=== PATIENT | male | born 2005 | race Caucasian/White ===

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

== ENCOUNTER 2024-11-28 15:32 | Emergency (ER) | payer OTHER, SELFPAY ==
--- OUTSIDE RECORDS SUMMARY | 2024-11-28 15:44 | XMS REPORT | Continuity of Care Document ---
Author Name Unknown Address [address] [facility] [address] [place] [address] [facility] Address [address] [facility] [address] [place] [address] Care Team Providers Care Printmaker Name Role Phone PCP, PATIENT DOES NOT HAVE A Primary Care Physic emma Unavailable HOLLY SHUKLA Attending Clinician Unavailab HOLLY Malhotra Attending Clinician Unavailab Holly Malhotra DO Attending Clinician [phone] TIMOTHY LOPEZ Attending Clinician Unavailable TIMOTHY LOPEZ Attending Clinician Unavailable Timothy Lopez DO Attending Clinician +[phone] ILIA MURPHY Attending Clinician Unavailable Ilia Morillo Attending Clinician [phone] BLOSSOM LUKE Attending Clinician UnaBlossom Valle MD Attending Clinician + GEORGIE REGALADO Attending Clinician Unavailable Georgie Rodriguez Attending Clinician [phone] IMANI DUNN Attending Clinician Unavaila luc Doctor Unassigned, [place] Attending Clinician U VEGA Boudreaux Attending Clinician Unavailable Vega Richmond MD Attending Clinician [phone] Clinic, Gastroenterology Attending Clinician + [phone] SEPIDEH LE Attending Clinician Unavailable SEPIDEH LE Attending Clinician Unavailable Imani Dunn MD Attending Clinician + [phone] Only, Adc Pedi Bill Attending Clinician Unavaila ble 2, Adc Lab Attending Clinician Unavailable Faculty, Pulmonary Attending Clinician Unavailab rosa Cortes RN, Marni Schumacher Attending Clinician [phone] KIRSTY TAYLOR Attending Clinician Unavailab rosa Anderson MD, Farzana Wheeler Attending Clinician [phone] Paulino Gonzalez MD Attending Clinician [phone] REMY HENAO Attending Clinician Unavailab rosa Ware PA-C, Yvette Attending Clinician [phone] Kamini Valenzuela RN Attending Clinician Unavailable YVETTE WARE Attending Clinician Unavailable Unknown, Attending Attending Clinician Unavailab NO Villagran Attending Clinician UnaNo Mason Attending Clinician + LORI BALBUENA Attending Clinician Unavaila ble Ibtitus BARTLETTPLori Attending Clinician [phone] OMAGHOMMINNIE KellerAYEMChhaya Attending Clinician Unavailabl e Omagdiannai TASHI, Omayemchhaya Attending Clinician [phone] Hemal ZAVALA, Annita García Attending Clinician Unavailab GEORGIE Yung Attending Clinician Unavailable Beka ORDOÑEZ, Georgie Attending Clinician [phone] GORGE GARNETT Attending Clinician Unavailab Gorge Finley MD Attending Clinician + [phone] JUAN PABLO CAMERON Attending Clinician Unavailabl Juan Pablo Bailey Attending Clinician [phone] Provider, [facility] Attending Clinician Unavailable RAMO PADILLA Attending Clinician Unavailabl Ramo Gardner Attending Clinician [phone] AXEL NUGENT Attending Clinician Unavailable Axel Maloney Attending Clinician [phone] Pietro Hills MD Attending Clinician PIETRO HILLS Attending Clinician Liat vailable RHEA BAUTISTA Attending Clinician Unavailable Ebrahim SERVER SECURITY ADMINISTRATOR, Rhea Attending Clinician [phone] KELSIE TREVIÑO Attending Clinician Unavailable Kelsie Treviño MD Attending Clinician [phone] Wagner SERVER SECURITY ADMINISTRATOR, Ruchi Robledo Attending Clinician [phone] HAMMAD LYNNE Attending Clinician Unavailable Jonathan SERVER SECURITY ADMINISTRATOR, Hammad Attending Clinician [phone] Fredi Wright MD Attending Clinician [phone] Only, Samuel Db Test Attending Clinician Unavailabl JOE Schreiber Attending Clinician Unavail able Only, Adc Pob2 Test Attending Clinician UnavailJoe Almonte DO Attending Clinician [phone] Provider, [facility] Attending Clinician Un available ARCADIO REESE Attending Clinician Unavailable Arcadio Reese MD Attending Clinician [phone] Star Machado APN Attending Clinician [phone] HOLLY SHUKLA Admitting Clinician Unavailab TIMOTHY Calixto Admitting Clinician Unavailable BLOSSOM LUKE Admitting Clinician Unav ailable VEGA RICHMOND Admitting Clinician Unavailable KIRSTY TAYLOR Admitting Clinician Unavailab REMY Clements Admitting Clinician Unavailab REBEKAH Dobson Admitting Clinician Unavailable GORGE GARNETT Admitting Clinician Unavailab KELSIE Johnson Admitting Clinician Unavailable Payers Payer Name Policy Type Policy Number Effective Date Expirati on Date Source [facility] [id number] 00:00:00 [facility] [id number] 2023 00:00:00 Problems Condition Name Condition Details Condition Category Status Onset Date Resolution Date Last Treatment Date Treating Clinician Comments Source Diverticul osis Diverticul osis Disease Active 2022-10 00:00: 00 [facility] Gastroesop hageal reflux disease with esophagiti s, unspecifie d whether hemorrhage Gastroesop hageal reflux disease with esophagiti s, unspecifie d whether hemorrhage Disease Active 2022-10 00:00: 00 Last Assessmen t & Plan: Formattin g of this note might be different from the original. Desmond has signs and symptoms that are consisten t with GERD. There are signs of esophagit is. Growth progressi on is normal.Pl an: Medicatio n prescribe d for a one-month trial as indicated above.Pravin e effect profile reviewed with the parent/pa curtis.Dis cussed foods that may make heartburn worse:? Foods high in fat? Sugar? Chocolate ? Peppermin t and other mint flavoring s? Onions and garlic? Acidic foods, like oranges or tomatoes? Spicy foods? Caffeine drinks, such as coffee and tea? Carbonate d drinks, such as colasReco mmended an increase in water intake, avoid foods outlined above. Avoid eating late at night.Gav e written informati on about reflux precautio ns and dietary recommend ations.No tify should symptoms worsen in spite of above treatment . [facility] Hematochez ia Hematochez ia Disease Active 2022-10 0 00:00: 00 Last Assessmen t & Plan: Formattin g of this note might be different from the original. Plan:Refe rral to GI for evaluatio n. [facility] Pneumonia of both lungs due to infectious organism, unspecifie d part of lung Pneumonia of both lungs due to infectious organism, unspecifie d part of lung Disease Active 05-29 00:00: 00 Last Assessmen t & Plan: Formattin g of this note might be different from the original. Desmond has had bilateral , atypical pneumonia leading to hospitali zation for parentera l antibioti cs, steroids and respirato ry support. His symptoms are improving but he is still with a persisten t cough. He is now afebrile and without signs of respirato ry distress. He is well hydrated. No organism was isolated from the sputum, blood or other serologic /PCR testings. He does have baseline history of asthma and prior history of vaping. He has completed recommend ed antibioti cs.Plan:N EW medicatio n: Flovent 220 mcg 2 p BID.Albut robert HFA inhaler 2 - 4 p q 4 - 6 hours PRN cough.Dis pensed a spacer device from the office today and instructe d on proper use - Use the spacer device for all inhaled medicatio ns.Carlos tinue bromphed cough syrup - it has not helped relieve his cough.Bre youngderick re daily and report any return in fever. 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 Desmond has difficult y initiatin g sleep.Kristie n:Discuss ed the importanc e of a bed time routine and consisten cy.Discus sed the concept of "sleep hygiene". Shut off all media about one hour prior to desired bed time. Soft, ambient, backgroun d music or the noise from a fan may help with sleep initiatio n.Target 8 - 10 hours of sleep per evening.A void caffeinat ed beverages , eating or exercise/ physical activity close to bedtime. [facility] Urethral stricture, unspecifie d stricture type Urethral stricture, unspecifie d stricture type Disease Active 2015-10 00:00: 00 [facility] Constipati on, unspecifie d constipati on type Constipati on, unspecifie d constipati on type Disease Active 2015-10 00:00: 00 Overview: Formattin g of this note might be different from the original. Chronic, functiona l constipat ion.Last Assessmen t & Plan: Formattin g of this note might be different from the original. Desmond has history of chronic constipat ion and has been counseled about treatment multiple times. His father is concerned about his recurrent , chronic GI symptoms and requested a GI referral today.Kristie n:Reinfor armida treatment for constipat ion.Refer ral placed for GI to evaluatio n and treat. [facility] Allergic rhinitis Allergic rhinitis Disease Active 2015-10 0 00:00: 00 Last Assessmen t & Plan: Formattin g of this note might be different from the original. Plan:Burke mmended that he use fluticaso ne nasal spray daily - Rx written.N bhupendra saline rinses. [facility] ADHD (attention deficit hyperactiv ity disorder) ADHD (attention deficit hyperactiv ity disorder) Disease Active Overview: Formattin g of this note might be different from the original. 08/2021: Not on medicatio nPreston has had adverse effects with Adderall, Vyvanse and Concerta. Switched to MyDayis 07/2019. [facility] Asthma Asthma Disease Active Overview: Formattin g of this note might be different from the original. Has a rescue inhaler [facility] Pneumonia of both lungs due to infectious organism, unspecifie d part of lung Pneumonia of both lungs due to infectious organism, unspecifie d part of lung Disease Resolve d 8-23 00:00: 00 2023-06-26 00:00:00 2023-06-26 10:45:45 [facility] Otitis media Otitis media Disease Resolve d 6 00:00: 00 2023-06-26 00:00:00 2023-06-26 10:45:50 Overview: Formattin g of this note might be different from the original. 03/2022: Unspecifi ed ear dx in urgent care--mariela allen scan to EMR. [facility] Corns Corns Disease Resolve d 1-10 00:00: 00 2021-08-24 00:00:00 2021-08-24 08:38:26 [facility] Acne vulgaris Acne vulgaris Disease Resolve d 2018-10 0-15 00:00: 00 2021-08-24 00:00:00 2021-08-24 08:38:20 [facility] Urticaria of unknown origin Urticaria of unknown origin Disease Resolve d 2018-10 0-28 00:00: 00 2019-08-19 00:00:00 2019-08-19 22:00:41 [facility] Alopecia Alopecia Disease Resolve d 2015-10 0-03 00:00: 00 2019-08-19 00:00:00 2019-08-19 22:00:53 [facility] Allergies, Adverse Reactions, Alerts Allergy Name Allergy Type Status Severity Reaction(s) Onset Date Inactive Date Treating Clinician Comments Source CEFDINIR DRUG INGREDI Active Diarrhea 01-10 00:00: 00 [facility] Cefdinir Propensi ty to adverse reaction s Active Diarrhea 01-10 00:00: 00 [facility] Social History Social Habit Start Date Stop Date Quantity Comments Source History SDOH Alcohol Comment [facility] History SDOH Alcohol Std Drinks [facility] History SDOH Alcohol Binge [facility] History of tobacco use Passive smoker [facility] Alcoholic beverage intake 2024-11-23 00:00:00 2024-11-23 00:00:00 .14 /d [facility] Alcohol intake 2023-09-19 00:00:00 2023-09-19 00:00:00 .14 /d [facility] History of Social function 2023-06-26 00:00:00 2023-06-26 00:00:00 [facility] Education 2023-06-26 00:00:00 2023-06-26 00:00:00 13 [facility] Tobacco use and exposure 2023-05-29 00:00:00 2023-05-29 00:00:00 User of smokeless tobacco [facility] Exposure to SARS-CoV-2 (event) 2022-12-13 00:00:00 2022-12-23 09:11:00 Not sure [facility] History SDOH Alcohol Frequency 2019-07-23 00:00:00 2019-07-23 00:00:00 1 [facility] Sex assigned at 2005 00:00:00 2005 00:00:00 [facility] Smoking Status Start Date Stop Date Source Never smoked tobacco [facility] Medications Ordered Medication Name Filled Medication Name Start Date Stop Date Current Medication? Ordering Clinician Indication Dosage Frequency Signature (SIG) Comments Components Source tamsulosin (FLOMAX) capsule 0.4 mg 11-23 12:15: 00 11-23 11:32 :00 No .4mg 0.4 mg, Oral, ONCE, 1 dose, On Sat11/23/24 at 0615, Routine [facility] fentanyl PF (SUBLIMAZE (PF)) injection 50 mcg 11-23 11:45: 00 11-23 11:38 :00 No 50ug 50 mcg, Slow IV Push, ONCE, 1 dose, On Sat11/23/24 at 0545, Routine [facility] fentanyl PF (SUBLIMAZE (PF)) injection 50 mcg 11-23 10:45: 00 11-23 10:48 :00 No 50ug 50 mcg, Slow IV Push, ONCE, 1 dose, On Sat11/23/24 at 0445, Routine [facility] ketorolac (TORADOL) injection 30 mg 11-23 10:30: 00 11-23 09:42 :00 No 30mg 30 mg, Slow IV Push, ONCE, 1 dose, On Sat11/23/24 at 0430, Routine [facility] morpHINE (4 mg/mL) injection 4 mg 11-23 09:45: 00 11-23 09:42 :00 No 4mg 4 mg, Slow IV Push, ONCE, 1 dose, On Sat11/23/24 at 0345, STAT [facility] ondansetron (ZOFRAN (PF)) injection 4 mg 11-23 09:45: 00 11-23 09:44 :00 No 4mg 4 mg, Slow IV Push, ONCE, 1 dose, On Sat11/23/24 at 0345, Administer over 2-5 Minutes, 2 mL [facility] tamsulosin 0.4 mg 24 hr capsule 11-23 00:00: 00 Yes [id number] .4mg Take 1 capsule by mouth at bedtime. [facility] ketorolac 10 mg tablet 11-23 00:00: 00 Yes [id number] 10mg Take 1 tablet by mouth every 6 (six) hours as needed for Pain (scale 1-3). [facility] acetaminoph en-codeine 300-30 mg tablet 11-23 00:00: 00 12-01 05:59 :00 Yes [id number] 1{tbl} Take 1 tablet by mouth every 4 (four) hours as needed for Pain (scale 1-3) for up to 7 days. Indication s: acute pain [facility] ondansetron (ZOFRAN-ODT ) disintegrat ing tablet 4 mg 10-26 08:45: 00 10-26 07:35 :00 No 4mg 4 mg, Oral, ONCE, 1 dose, On Sat10/26/24 at 0245, Routine [facility] albuterol 90 mcg/actuati on inhaler 10-26 00:00: 00 Yes [id number] 2{puff} Inhale 2 Puffs every 4 (four) hours as needed for Wheezing or Shortness of Breath (or cough). [facility] ondansetron 4 mg disintegrat ing tablet 10-26 00:00: 00 Yes [id number] 4mg Take 1 tablet by mouth every 8 (eight) hours as needed for Nausea and Vomiting (N/V). [facility] methylPREDN ISolone (MEDROL, NELIDA,) 4 mg tablets 10-26 00:00: 00 Yes [id number] Take by mouth SEE-INSTRU CTIONS. follow package directions [facility] amoxicillin (TRIMOX) capsule 500 mg 03-18 00:15: 00 03-18 00:15 :00 No 500mg 500 mg, Oral, ONCE, 1 dose, On Sat03/17/24 at 1915, MARCO, Reason for Anti-Infec tive: Documented Infection, Documented Infection Site: HEENT, Duration of Therapy: Once (ED) [facility] ketorolac (TORADOL) injection 30 mg 03-18 00:00: 00 03-17 23:17 :00 No 30mg 30 mg, Intramuscu lar, ONCE, 1 dose, On Sat03/17/24 at 1900, Routine [facility] dexamethaso ne sod phos PF injection 10 mg 03-17 23:15: 00 03-17 23:20 :00 No 10mg 10 mg, Intramuscu lar, ONCE, 1 dose, On Sat03/17/24 at 1815, 1 mL [facility] amoxicillin 500 mg tablet 03-17 00:00: 00 03-28 04:59 :00 No [id number] 500mg Take 1 tablet by mouth in the morning and 1 tablet in the evening. Do all this for 10 days. [facility] polyethylen e glycol 3350 (MIRALAX) 17 gram/dose powder 2022-10 00:00: 00 Yes [id number] 1 capful in 8 oz of juice or water once a day [facility] iopamidol (ISOVUE 370-500 mL) injection 75 mL 2022-10 20:30: 00 08-15 20:30 :00 No [id number] 75mL 75 mL, Intravenou s, ONCE, 1 dose, On Belinda 08/15/23 at 1430, Routine [facility] ondansetron (ZOFRAN (PF)) injection 4 mg 2022-10 18:30: 00 08-15 17:32 :00 No 4mg 4 mg, Slow IV Push, ONCE, 1 dose, On Belinda 08/15/23 at 1230, MRACO [facility] FENTanyl PF (SUBLIMAZE (PF)) injection 75 mcg 2022-10 18:30: 00 08-15 17:31 :00 No 75ug 75 mcg, Slow IV Push, ONCE, 1 dose, On Belinda 08/15/23 at 1230, STAT [facility] simethicone 80 mg chewable tablet 2022-10 00:00: 00 Yes [id number] 80mg Take 1 tablet by mouth after meals and at bedtime. [facility] metoclopram rishabh HCl 10 mg tablet 2022-10 00:00: 00 Yes [id number] 10mg Take 1 tablet by mouth every 6 (six) hours. [facility] dicyclomine 20 mg tablet 2022-10 00:00: 00 09-19 00:00 :00 No [id number] 20mg Take 1 tablet by mouth 4 (four) times daily. [facility] FLOVENT HFA 220 mcg/actuati on inhaler 07-03 00:00: 09-19 00:00 :00 No [id number] 1{puff} INHALE 1 PUFF BY MOUTH EVERY 12 HOURS [facility] omeprazole 40 mg capsule 06-26 00:00: 00 Yes [id number] 40mg Take 1 capsule by mouth in the morning. [facility] fluticasone propionate 50 mcg/actuati on nasal spray 06-26 00:00: 00 07-27 04:59 :00 No [id number] 1{spray } Use 1 [place] in each nostril in the morning for 30 days. [facility] albuterol 90 mcg/actuati on inhaler 06-05 00:00: 00 10-26 00:00 :00 No [id number] 2{puff} Inhale 2 Puffs every 4 (four) hours as needed for Wheezing or Shortness of Breath (or cough). [facility] fluticasone propionate (FLOVENT HFA) 220 mcg/actuati on inhaler 06-05 00:00: 00 07-03 00:00 :00 No [id number] 1{puff} Inhale 1 Puff every 12 (twelve) hours. [facility] cefTRIAXone (ROCEPHIN) 1,000 mg in NaCl 0.9% (NS) 100 mL MINI-BAG 06-02 14:00: 00 06-09 13:59 :00 No 1000mg 1,000 mg, IV Piggyback, DAILY, 7 doses, First dose (after last reorder) on 06/02/23 at 0900, Last dose on 06/08/23 at 0900, Administer over 30 Minutes, 100 mL
Reas on for Anti-Infec tive: Documented Infection< br>Documen sil Infection Site: Respirator y
Durat ion of Therapy: 7 days [facility] predniSONE (DELTASONE) tablet 40 mg 06-02 14:00: 00 06-02 17:08 :48 No 40mg 40 mg, Oral, DAILY, First dose on Sat06/02/23 at 0900, Until Discontinu ed, Routine [facility] azithromyci n 500 mg tablet 06-02 00:00: 00 06-06 04:59 :00 No [id number] 500mg Take 1 tablet by mouth in the morning for 3 days. [facility] doxycycline hyclate (Vibramycin ) capsule 100 mg 06-01 23:00: 00 06-04 22:59 :00 No 100mg 100 mg, Oral, Q12HA2, 6 doses, First dose (after last reorder) on Sat06/01/23 at 1800, Last dose on Sat06/04/23 at 0600, MARCO
Re ason for Anti-Infec tive: Documented Infection< br>Documen sil Infection Site: Respirator y
Durat ion of Therapy: 7 days [facility] pantoprazol e (PROTONIX) EC tablet 40 mg 06-01 14:00: 00 06-02 17:08 :48 No 40mg 40 mg, Oral, DAILY, First dose on Sat06/01/23 at 0900, Until Discontinu ed, Routine [facility] methylPREDN ISolone sod succ (SOLU-MEDRO L (PF)) injection 40 mg 06-01 01:00: 00 06-01 20:27 :10 No 40mg 40 mg, Intravenou s, BID, First dose (after last modificati on) on Sat05/31/23 at 2000, Until Discontinu ed, 1 mL [facility] loperamide (IMODIUM A-D) capsule 2 mg 05-31 01:20: 00 06-02 17:08 :48 No 2mg 2 mg, Oral, Q4HPRN, Starting on Sat05/30/23 at 2020, Until Sat06/02/23 at 1208, Routine, Diarrhea [facility] sodium chloride 7% (HYPER-GOYO) nebulizer solution 4 mL 05-30 18:00: 00 06-01 20:27 :46 No 4mL 4 mL, Inhalation , DAILY, First dose on Sat05/30/23 at 1300, Until Discontinu ed, Routine [facility] acetylcyste ine (MUCOMYST) 200 mg/mL (20 %) inhalation solution 800 mg 05-30 17:00: 00 06-01 20:27 :35 No 4mL 800 mg (4 mL), Inhalation , QID, 12 doses, First dose on Belinda 05/30/23 at 1200, Last dose on Sat06/02/23 at 0800, Routine [facility] cefTRIAXone (ROCEPHIN) 1,000 mg in NaCl 0.9% (NS) 100 mL MINI-BAG 05-30 14:00: 00 06-01 14:49 :00 No 1000mg 1,000 mg, IV Piggyback, DAILY, 3 doses, First dose on Belinda 05/30/23 at 0900, Last dose on [facility] 06/01/23 at 0900, Administer over 30 Minutes, 100 mL
Reas on for Anti-Infec tive: Empiric Therapy for Suspected Infection< br>Empiric Therapy Site: Respirator y
Durat ion of therapy: 72 hours [facility] pantoprazol e (PROTONIX) injection 40 mg 05-30 14:00: 00 05-31 16:24 :41 No 40mg 40 mg, Slow IV Push, Q24H, First dose on Sat05/30/23 at 0900, Until Discontinu ed [facility] ondansetron (ZOFRAN (PF)) injection 8 mg 05-30 12:57: 01 06-02 17:08 :48 No 8mg 8 mg, Slow IV Push, Q6HPRN, Nausea and Vomiting (N/V), Indigestio n, Starting on Sat05/30/23 at 0757
Do ses of ondansetro n 16 mg and above need to be administer ed via IV piggyback. For Dose >=24mg ECG monitoring is advisable.
[facility] alum-mag hydroxide-s imeth (MAG-AL PLUS) 200-200-20 mg/5 mL suspension 30 mL 05-30 12:54: 45 06-02 17:08 :48 No 30mL 30 mL, Oral, Q6HPRN, Starting on Belinda 05/30/23 at 0754, Until 06/02/23 at 1208, Routine, Indigestio n [facility] enoxaparin (LOVENOX) injection 40 mg 05-29 22:00: 00 06-02 17:08 :48 No 40mg 40 mg, Subcutaneo us, DAILY, First dose on Sat05/29/23 at 1700, Until Discontinu ed, Routine [facility] KCL (KLOR-CON M20) tablet 40 mEq 05-29 19:00: 00 05-29 18:34 :00 No 40meq 40 mEq, Oral, ONCE, 1 dose, On Sat05/29/23 at 1400, Routine [facility] ipratropium -albuteroL (DUONEB) 0.5 mg-3 mg(2.5 mg base)/3 mL nebulizer solution 3 mL 05-29 13:00: 00 06-02 17:08 :48 No 3mL 3 mL, Inhalation , QID, First dose on Sat05/29/23 at 0800, Until Discontinu ed, Routine [facility] methylpredn isolone sod succ (SOLU-MEDRO L) injection 60 mg 05-29 13:00: 00 05-31 14:42 :31 No 60mg 60 mg, Intravenou s, BID, First dose on Sat05/29/23 at 0800, Until Discontinu ed, 2 mL [facility] doxycycline hyclate (Vibramycin ) capsule 100 mg 05-29 12:30: 00 06-01 01:12 :00 No 100mg 100 mg, Oral, Q12HA2, 6 doses, First dose on Sat05/29/23 at 0730, Last dose on Sat05/31/23 at 1800, MARCO
Re ason for Anti-Infec tive: Empiric Therapy for Suspected Infection< br>Empiric Therapy Site: Respirator y
Durat ion of therapy: 72 hours [facility] ondansetron (ZOFRAN (PF)) injection 4 mg 05-29 10:15: 00 05-29 10:14 :00 No 4mg 4 mg, Slow IV Push, ONCE, 1 dose, On Sat05/29/23 at 0515, MARCO [facility] azithromyci n (ZITHROMAX) 500 mg in NaCl 0.9% (NS) 250 mL VIAL-MATE IV piggyback 05-29 09:45: 00 05-29 11:32 :00 No 500mg 500 mg, IV Piggyback, ONCE, 1 dose, On Sat05/29/23 at 0445, Administer over 60 Minutes, 250 mL
Reas on for Anti-Infec tive: Documented Infection< br>Documen sil Infection Site: Respirator y
Durat ion of Therapy: 7 days [facility] ipratropium -albuteroL (DUONEB) 0.5 mg-3 mg(2.5 mg base)/3 mL nebulizer solution 3 mL 05-29 09:45: 00 05-29 09:08 :00 No 3mL 3 mL, Inhalation , ONCE NOW, 1 dose, On Sat05/29/23 at 0445, Routine [facility] cefTRIAXone (ROCEPHIN) 1,000 mg in NaCl 0.9% (NS) 100 mL MINI-BAG 05-29 09:00: 00 05-29 09:52 :00 No 1000mg 1,000 mg, IV Piggyback, ONCE, 1 dose, On Sat05/29/23 at 0400, Administer over 30 Minutes, 100 mL
Reas on for Anti-Infec tive: Documented Infection< br>Documen sil Infection Site: Respirator y
Durat ion of Therapy: 7 days [facility] diphenhydrA MINE (BENADRYL) injection 25 mg 05-25 04:00: 00 05-25 03:51 :00 No 25mg 25 mg, Slow IV Push, ONCE, 1 dose, On Sat05/24/23 at 2300, STAT [facility] ondansetron (ZOFRAN (PF)) injection 4 mg 05-25 03:30: 00 05-25 03:33 :00 No 4mg 4 mg, Slow IV Push, ONCE, 1 dose, [facility]24/23 [facility] 2230[facility] (ROCEPHIN) 1,000 mg in NaCl 0.9% (NS) 100 mL MINI-BAG 05-25 03:30: 00 05-25 04:01 :00 No 1000mg 1,000 mg, IV Piggyback, ONCE, 1 dose, On Sat05/24/23 at 2230, Administer over 30 Minutes, 100 mL
Reas on for Anti-Infec tive: Documented Infection< br>Documen sil Infection Site: Respirator y
Durat ion of Therapy: Other (see Comments) [facility] ketorolac (TORADOL) injection 15 mg 05-25 02:15: 00 05-25 01:26 :00 No 15mg 15 mg, Slow IV Push, ONCE, 1 dose, On Sat05/24/23 at 2115, Routine [facility] NaCl 0.9% (NS) bolus infusion 1,000 mL 05-25 02:15: 00 05-25 03:41 :00 No 1000mL at 999 mL/hr, 1,000 mL, IV Infusion, ONCE, 1 dose, On Sat05/24/23 at 2115, [facility] acetaminoph en (TYLENOL) tablet 1,000 mg 05-25 01:30: 00 05-25 01:27 :00 No 1000mg 1,000 mg, Oral, ONCE, 1 dose, On Sat05/24/23 at 2030, [facility] ondans[facility] (ZOFRAN (PF)) injection 4 mg 05-25 01:30: 00 05-25 01:25 :00 No 4mg 4 mg, Slow IV Push, ONCE, 1 dose, On Sat05/24/23 at 2030, [facility] ([facility]OL) tablet 650 mg 05-24 02:15: 00 05-24 01:30 :00 No [id number] 650mg [facility] ondansetron (ZOFRAN-ODT ) disintegrat ing tablet 4 mg 05-24 02:15: 00 05-24 01:31 :00 No [id number] 4mg [facility] ondansetron 4 mg disintegrat ing tablet 05-24 00:00: 00 06-11 00:00 :00 No [id number] 4mg Take 1 tablet by mouth every 8 (eight) hours as needed for Nausea and Vomiting (N/V). [facility] amoxicillin 500 mg capsule 05-24 00:00: 00 05-30 04:59 :00 No [id number] 1000mg Take 2 capsules by mouth in the morning and 2 capsules at noon and 2 capsules in the evening. Do all this for 5 days. [facility] bromphenira mine-pseudo ephedrine-D M (BROMFED DM) 2-30-10 mg/5 mL syrup 05-23 00:00: 00 06-26 00:00 :00 No [id number] 5mL Take 5 mL by mouth 3 (three) times daily as needed for Cold symptoms. [facility] ondansetron 4 mg disintegrat ing tablet 05-23 00:00: 05-24 00:00 :00 No [id number] 4mg Take 1 tablet by mouth every 8 (eight) hours as needed for Nausea and Vomiting (N/V). [facility] ketorolac (TORADOL) injection 30 mg 04-14 12:45: 00 04-14 11:50 :00 No 30mg 30 mg, Slow IV Push, ONCE NOW, 1 dose, On 04/14/23 at 0745, Routine [facility] morpHINE (4 mg/mL) injection 4 mg 04-14 12:00: 00 04-14 12:06 :00 No 4mg 4 mg, Slow IV Push, ONCE, 1 dose, On 04/14/23 at 0700, STAT [facility] ondansetron (ZOFRAN (PF)) injection 4 mg 04-14 12:00: 00 04-14 11:47 :00 No 4mg 4 mg, Slow IV Push, ONCE, 1 dose, On 04/14/23 at 0700, MARCO [facility] ketorolac 10 mg tablet 04-14 00:00: 00 06-11 00:00 :00 No [id number] 10mg Take 1 tablet by mouth every 6 (six) hours as needed for Pain (scale 4-6). [facility] tamsulosin 0.4 mg 24 hr capsule 04-14 00:00: 00 06-11 00:00 :00 No [id number] .4mg Take 1 capsule by mouth at bedtime. [facility] ondansetron 4 mg disintegrat ing tablet 04-14 00:00: 00 05-24 00:00 :00 No [id number] 4mg Take 1 tablet by mouth every 4 (four) hours as needed for Nausea and Vomiting (N/V). [facility] HYDROcodone -acetaminop hen (NORCO) 7.5-325 mg per tablet 04-14 00:00: 00 04-22 04:59 :00 No [id number] 1{tbl} Take 1 tablet by mouth every 8 (eight) hours as needed for Pain for up to 7 days. Indication s: acute pain [facility] tamsulosin (FLOMAX) capsule 0.4 mg 12-23 17:00: 00 12-23 16:34 :00 No .4mg 0.4 mg, Oral, ONCE, 1 dose, On Sat12/23/22 at 1200, Routine [facility] morpHINE (4 mg/mL) injection 4 mg 12-23 16:30: 00 12-23 16:34 :00 No 4mg 4 mg, Slow IV Push, ONCE, 1 dose, On 3/19/23 at 1130, STAT [facility] ketorolac (TORADOL) injection 30 mg 12-23 15:30: 00 12-23 14:37 :00 No 30mg 30 mg, Slow IV Push, ONCE, 1 dose, On Sat12/23/22 at 1030, Routine [facility] NaCl 0.9% (NS) bolus infusion 1,000 mL 12-23 15:15: 00 12-23 15:55 :00 No 1000mL at 999 mL/hr, 1,000 mL, IV Infusion, ONCE, 1 dose, On Sat12/23/22 at 1015, MAR[facility] morpHINE (4 mg/mL) injection 4 mg 12-23 15:00: 00 12-23 14:49 :00 No 4mg 4 mg, Slow IV Push, ONCE, 1 dose, On Sat12/23/22 at 1000, STAT [facility] ondansetron (ZOFRAN (PF)) injection 4 mg 12-23 14:45: 00 12-23 14:38 :00 No 4mg 4 mg, Slow IV Push, ONCE, 1 dose, On Sat12/23/22 at 0945, MARCO [facility] tamsulosin 0.4 mg 24 hr capsule 12-23 00:00: 00 Yes [id number] .4mg Take 1 capsule by mouth at bedtime. [facility] ketorolac 10 mg tablet 12-23 00:00: 00 Yes [id number] 10mg Take 1 tablet by mouth every 6 (six) hours as needed for Pain (scale 7-10). [facility] traMADoL 50 mg tablet 12-23 00:00: 00 06-11 00:00 :00 No [id number] 50mg Take 1 tablet by mouth every 6 (six) hours as needed for Pain (scale 7-10). Indication s: acute pain [facility] bromphenira mine-pseudo ephedrine-D M (BROMFED DM) 2-30-10 mg/5 mL syrup 130 00:00: 06-11 00:00 :00 No [id number] 5mL Take 5 mL by mouth 4 (four) times daily as needed for Congestion /Allergies . [facility] benzonatate 100 mg capsule 11-05 00:00: 00 06-11 00:00 :00 No [id number] 200mg Take 2 capsules by mouth every 8 (eight) hours as needed for Cough. [facility] ondansetron 4 mg disintegrat ing tablet 11-05 00:00: 00 04-14 00:00 :00 No [id number] 4mg Take 1 tablet by mouth every 8 (eight) hours as needed for Nausea and Vomiting (N/V). [facility] ketorolac (TORADOL) injection 30 mg 10-20 23:30: 00 10-20 22:50 :00 No 30mg 30 mg, Slow IV Push, ONCE, 1 dose, On 10/20/22 at 1730, [facility] NaCl 0.9% (NS) bolus infusion 1,000 mL 10-20 23:15: 00 10-21 00:45 :00 No 1000mL at 999 mL/hr, 1,000 mL, IV Infusion, ONCE, 1 dose, On 10/20/22 at 1715, MARCO [facility] ondansetron (ZOFRAN (PF)) injection 4 mg 10-20 22:45: 00 10-20 22:50 :00 No 4mg 4 mg, Slow IV Push, ONCE, 1 dose, On 10/20/22 at 1645, MARCO [facility] tamsulosin 0.4 mg 24 hr capsule 10-20 00:00: 00 Yes [id number] .4mg Take 1 capsule by mouth at bedtime. [facility] ondansetron 4 mg disintegrat ing tablet 10-20 00:00: 00 Yes [id number] 4mg Take 1 tablet by mouth every 8 (eight) hours as needed for Nausea and Vomiting (N/V). [facility] traMADoL 50 mg tablet 10-20 00:00: 00 Yes [id number] 50mg Take 1 tablet by mouth every 6 (six) hours as needed for Pain (scale 7-10). Indication s: acute pain [facility] ondansetron 4 mg disintegrat ing tablet 2021-10 00:00: 00 11-05 00:00 :00 No [id number] 4mg Take 1 tablet by mouth every 8 (eight) hours as needed for Nausea and Vomiting (N/V). [facility] bromphenira mine-pseudo ephedrine-D M (BROMFED DM) 2-30-10 mg/5 mL syrup 2021-10 00:00: 00 11-05 00:00 :00 No [id number] 5mL Take 5 mL by mouth 4 (four) times daily as needed for Congestion /Allergies or Cough. [facility] ondansetron 4 mg disintegrat ing tablet 2021-10 00:00: 00 08-20 05:59 :00 No [id number] 4mg Take 1 tablet by mouth every 8 (eight) hours as needed for Nausea and Vomiting (N/V) for up to 5 days. [facility] ondansetron 4 mg disintegrat ing tablet 2021-10 00:00: 00 09-11 00:00 :00 No [id number] 4mg Take 1 tablet by mouth every 12 (twelve) hours as needed for Nausea and Vomiting (N/V). [facility] bromphenira mine-pseudo ephedrine-D M (BROMFED DM) 2-30-10 mg/5 mL syrup 2021-10 00:00: 00 09-11 00:00 :00 No [id number] 5mL Take 5 mL by mouth 4 (four) times daily as needed for Congestion /Allergies or Cough. [facility] ondansetron (ZOFRAN-ODT ) disintegrat ing tablet 4 mg 06-13 17:00: 00 06-13 15:52 :00 No [id number] 4mg [facility] ondansetron 4 mg disintegrat ing tablet 06-13 00:00: 08-14 00:00 :00 No [id number] 4mg Take 1 tablet by mouth every 8 (eight) hours as needed for Nausea and Vomiting (N/V). [facility] albuterol 90 mcg/actuati on inhaler 06-11 00:00: 00 11-05 00:00 :00 No [id number] 2{puff} Inhale 2 Puffs every 6 (six) hours as needed for Shortness of Breath or Wheezing. [facility] benzonatate 100 mg capsule 06-11 00:00: 00 09-11 00:00 :00 No [id number] 200mg Take 2 capsules by mouth every 8 (eight) hours as needed for Cough. [facility] bromphenira mine-pseudo ephedrine-D M (BROMFED DM) 2-30-10 mg/5 mL syrup 06-11 00:00: 09-11 00:00 :00 No [id number] 5mL Take 5 mL by mouth 4 (four) times daily as needed for Congestion /Allergies . [facility] ondansetron 4 mg disintegrat ing tablet 06-11 00:00: 00 06-13 00:00 :00 No [id number] 4mg Take 1 tablet by mouth every 8 (eight) hours as needed for Nausea and Vomiting (N/V). [facility] azithromyci n 500 mg tablet 06-06 00:00: 00 Yes [facility] hydrOXYchlo roQUINE 200 mg tablet 06-06 00:00: 00 10-20 00:00 :00 No [facility] diclofenac 75 mg EC tablet 06-04 00:00: 00 11-05 00:00 :00 No [id number] 75mg Take 1 tablet by mouth in the morning and 1 tablet in the evening. Take with meals. [facility] acetaminoph en (TYLENOL ARTHRITIS PAIN) 650 mg CR tablet 06-04 00:00: 00 11-05 00:00 :00 No [id number] 650mg Take 1 tablet by mouth every 8 (eight) hours as needed for Pain. [facility] ondansetron 4 mg disintegrat ing tablet 02-17 00:00: 00 06-11 00:00 :00 No [id number] 4mg Take 1 tablet by mouth every 8 (eight) hours as needed for Nausea and Vomiting (N/V). [facility] cetirizine 10 mg tablet 2020-10 00:00: 00 06-11 00:00 :00 No [id number] 10mg Take 1 tablet by mouth daily. [facility] polyethylen e glycol 3350 (MIRALAX) 17 gram/dose powder 2020-10 00:00: 00 11-05 00:00 :00 No [id number] 1 capful in 8 oz of juice or water once a day [facility] Immunizations Ordered Immunization Name Filled Immunization Name Date Status Comments Source HPV9 2023-09-19 00:00:00 Completed [facility] HPV9 2023-06-26 00:00:00 Completed Meningococcal B, OMV 2023-06-26 00:00:00 Completed Influenza Virus Vaccine Quad IM, Preserv and ABX Free 6 MO-64 YRS (FLUCELVAX) 2023-06-26 00:00:00 Completed Meningococcal Polysaccharide (groups A, C, Y and W-135) conjugate vaccine (MCV4P) 2021-08-24 00:00:00 Completed [facility] Influenza Virus Vaccine Quad .5 mL IM 6+ MO 2021-08-24 00:00:00 Completed [facility] Meningococcal B, OMV 2021-08-24 00:00:00 Completed [facility] Meningococcal Polysaccharide (groups A, C, Y and W-135) conjugate vaccine (MCV4P) 2021-08-24 00:00:00 Completed [facility] Influenza Virus Vaccine Quad .5 mL IM 6+ MO 2021-08-24 00:00:00 Completed [facility] Meningococcal B, OMV 2021-08-24 00:00:00 Completed [facility] Meningococcal Polysaccharide (groups A, C, Y and W-135) conjugate vaccine (MCV4P) 2021-08-24 00:00:00 Completed [facility] Influenza Virus Vaccine Quad .5 mL IM 6+ MO 2021-08-24 00:00:00 Completed [facility] Meningococcal B, OMV 2021-08-24 00:00:00 Completed [facility] Meningococcal Polysaccharide (groups A, C, Y and W-135) conjugate vaccine (MCV4P) 2021-08-24 00:00:00 Completed [facility] Influenza Virus Vaccine Quad .5 mL IM 6+ MO 2021-08-24 00:00:00 Completed [facility] Meningococcal B, OMV 2021-08-24 00:00:00 Completed [facility] Meningococcal Polysaccharide (groups A, C, Y and W-135) conjugate vaccine (MCV4P) 2021-08-24 00:00:00 Completed [facility] Influenza Virus Vaccine Quad .5 mL IM 6+ MO 2021-08-24 00:00:00 Completed [facility] Meningococcal B, OMV 2021-08-24 00:00:00 Completed [facility] Meningococcal Polysaccharide (groups A, C, Y and W-135) conjugate vaccine (MCV4P) 2021-08-24 00:00:00 Completed [facility] Influenza Virus Vaccine Quad .5 mL IM 6+ MO 2021-08-24 00:00:00 Completed [facility] Meningococcal B, OMV 2021-08-24 00:00:00 Completed [facility] Meningococcal Polysaccharide (groups A, C, Y and W-135) conjugate vaccine (MCV4P) 2021-08-24 00:00:00 Completed [facility] Influenza Virus Vaccine Quad .5 mL IM 6+ MO 2021-08-24 00:00:00 Completed [facility] Meningococcal B, OMV 2021-08-24 00:00:00 Completed [facility] Meningococcal Polysaccharide (groups A, C, Y and W-135) conjugate vaccine (MCV4P) 2021-08-24 00:00:00 Completed [facility] Influenza Virus Vaccine Quad .5 mL IM 6+ MO 2021-08-24 00:00:00 Completed [facility] Meningococcal B, OMV 2021-08-24 00:00:00 Completed [facility] Meningococcal Polysaccharide (groups A, C, Y and W-135) conjugate vaccine (MCV4P) 2021-08-24 00:00:00 Completed [facility] Influenza Virus Vaccine Quad .5 mL IM 6+ MO 2021-08-24 00:00:00 Completed [facility] Meningococcal B, OMV 2021-08-24 00:00:00 Completed [facility] Meningococcal Polysaccharide (groups A, C, Y and W-135) conjugate vaccine (MCV4P) 2021-08-24 00:00:00 Completed [facility] Influenza Virus Vaccine Quad .5 mL IM 6+ MO 2021-08-24 00:00:00 Completed [facility] Meningococcal B, OMV 2021-08-24 00:00:00 Completed [facility] Meningococcal Polysaccharide (groups A, C, Y and W-135) conjugate vaccine (MCV4P) 2021-08-24 00:00:00 Completed [facility] Influenza Virus Vaccine Quad .5 mL IM 6+ MO 2021-08-24 00:00:00 Completed [facility] Meningococcal B, OMV 2021-08-24 00:00:00 Completed [facility] Meningococcal Polysaccharide (groups A, C, Y and W-135) conjugate vaccine (MCV4P) 2021-08-24 00:00:00 Completed [facility] Influenza Virus Vaccine Quad .5 mL IM 6+ MO 2021-08-24 00:00:00 Completed [facility] Meningococcal B, OMV 2021-08-24 00:00:00 Completed [facility] Meningococcal Polysaccharide (groups A, C, Y and W-135) conjugate vaccine (MCV4P) 2021-08-24 00:00:00 Completed [facility] Influenza Virus Vaccine Quad .5 mL IM 6+ MO 2021-08-24 00:00:00 Completed [facility] Meningococcal B, OMV 2021-08-24 00:00:00 Completed [facility] Meningococcal Polysaccharide (groups A, C, Y and W-135) conjugate vaccine (MCV4P) 2021-08-24 00:00:00 Completed [facility] Influenza Virus Vaccine Quad .5 mL IM 6+ MO 2021-08-24 00:00:00 Completed [facility] Meningococcal B, OMV 2021-08-24 00:00:00 Completed [facility] Meningococcal Polysaccharide (groups A, C, Y and W-135) conjugate vaccine (MCV4P) 2021-08-24 00:00:00 Completed [facility] Influenza Virus Vaccine Quad .5 mL IM 6+ MO 2021-08-24 00:00:00 Completed [facility] Meningococcal B, OMV 2021-08-24 00:00:00 Completed [facility] Meningococcal Polysaccharide (groups A, C, Y and W-135) conjugate vaccine (MCV4P) 2021-08-24 00:00:00 Completed [facility] Influenza Virus Vaccine Quad .5 mL IM 6+ MO 2021-08-24 00:00:00 Completed [facility] Meningococcal B, OMV 2021-08-24 00:00:00 Completed [facility] Meningococcal Polysaccharide (groups A, C, Y and W-135) conjugate vaccine (MCV4P) 2021-08-24 00:00:00 Completed [facility] Influenza Virus Vaccine Quad .5 mL IM 6+ MO 2021-08-24 00:00:00 Completed [facility] Meningococcal B, OMV 2021-08-24 00:00:00 Completed [facility] Meningococcal Polysaccharide (groups A, C, Y and W-135) conjugate vaccine (MCV4P) 2021-08-24 00:00:00 Completed [facility] Influenza Virus Vaccine Quad .5 mL IM 6+ MO 2021-08-24 00:00:00 Completed [facility] Meningococcal B, OMV 2021-08-24 00:00:00 Completed [facility] Meningococcal Polysaccharide (groups A, C, Y and W-135) conjugate vaccine (MCV4P) 2021-08-24 00:00:00 Completed [facility] Influenza Virus Vaccine Quad .5 mL IM 6+ MO 2021-08-24 00:00:00 Completed [facility] Meningococcal B, OMV 2021-08-24 00:00:00 Completed [facility] Meningococcal Polysaccharide (groups A, C, Y and W-135) conjugate vaccine (MCV4P) 2021-08-24 00:00:00 Completed [facility] Influenza Virus Vaccine Quad .5 mL IM 6+ MO 2021-08-24 00:00:00 Completed [facility] Meningococcal B, OMV 2021-08-24 00:00:00 Completed [facility] Meningococcal Polysaccharide (groups A, C, Y and W-135) conjugate vaccine (MCV4P) 2021-08-24 00:00:00 Completed [facility] Influenza Virus Vaccine Quad .5 mL IM 6+ MO 2021-08-24 00:00:00 Completed [facility] Meningococcal B, OMV 2021-08-24 00:00:00 Completed [facility] Meningococcal Polysaccharide (groups A, C, Y and W-135) conjugate vaccine (MCV4P) 2021-08-24 00:00:00 Completed [facility] Influenza Virus Vaccine Quad .5 mL IM 6+ MO 2021-08-24 00:00:00 Completed [facility] Meningococcal B, OMV 2021-08-24 00:00:00 Completed [facility] Meningococcal Polysaccharide (groups A, C, Y and W-135) conjugate vaccine (MCV4P) 2021-08-24 00:00:00 Completed [facility] Influenza Virus Vaccine Quad .5 mL IM 6+ MO 2021-08-24 00:00:00 Completed [facility] Meningococcal B, OMV 2021-08-24 00:00:00 Completed [facility] Meningococcal Polysaccharide (groups A, C, Y and W-135) conjugate vaccine (MCV4P) 2021-08-24 00:00:00 Completed [facility] Influenza Virus Vaccine Quad .5 mL IM 6+ MO 2021-08-24 00:00:00 Completed [facility] Meningococcal B, OMV 2021-08-24 00:00:00 Completed [facility] Meningococcal Polysaccharide (groups A, C, Y and W-135) conjugate vaccine (MCV4P) 2021-08-24 00:00:00 Completed [facility] Influenza Virus Vaccine Quad .5 mL IM 6+ MO 2021-08-24 00:00:00 Completed [facility] Meningococcal B, OMV 2021-08-24 00:00:00 Completed [facility] Meningococcal Polysaccharide (groups A, C, Y and W-135) conjugate vaccine (MCV4P) 2021-08-24 00:00:00 Completed [facility] Influenza Virus Vaccine Quad .5 mL IM 6+ MO 2021-08-24 00:00:00 Completed [facility] Meningococcal B, OMV 2021-08-24 00:00:00 Completed [facility] Meningococcal Polysaccharide (groups A, C, Y and W-135) conjugate vaccine (MCV4P) 2021-08-24 00:00:00 Completed [facility] Influenza Virus Vaccine Quad .5 mL IM 6+ MO 2021-08-24 00:00:00 Completed [facility] Meningococcal B, OMV 2021-08-24 00:00:00 Completed [facility] Meningococcal Polysaccharide (groups A, C, Y and W-135) conjugate vaccine (MCV4P) 2021-08-24 00:00:00 Completed [facility] Influenza Virus Vaccine Quad .5 mL IM 6+ MO 2021-08-24 00:00:00 Completed [facility] Meningococcal B, OMV 2021-08-24 00:00:00 Completed [facility] Meningococcal Polysaccharide (groups A, C, Y and W-135) conjugate vaccine (MCV4P) 2021-08-24 00:00:00 Completed [facility] Influenza Virus Vaccine Quad .5 mL IM 6+ MO 2021-08-24 00:00:00 Completed [facility] Meningococcal B, OMV 2021-08-24 00:00:00 Completed [facility] Meningococcal Polysaccharide (groups A, C, Y and W-135) conjugate vaccine (MCV4P) 2021-08-24 00:00:00 Completed [facility] Influenza Virus Vaccine Quad .5 mL IM 6+ MO (FLUZONE/FLULAVAL/FL UARIX) 2021-08-24 00:00:00 Completed [facility] Meningococcal B, OMV 2021-08-24 00:00:00 Completed [facility] Meningococcal Polysaccharide (groups A, C, Y and W-135) conjugate vaccine (MCV4P) 2021-08-24 00:00:00 Completed [facility] Influenza Virus Vaccine Quad .5 mL IM 6+ MO (FLUZONE/FLULAVAL/FL UARIX) 2021-08-24 00:00:00 Completed [facility] Meningococcal B, OMV 2021-08-24 00:00:00 Completed [facility] Meningococcal Polysaccharide (groups A, C, Y and W-135) conjugate vaccine (MCV4P) 2021-08-24 00:00:00 Completed [facility] Influenza Virus Vaccine Quad .5 mL IM 6+ MO (FLUZONE/FLULAVAL/FL UARIX) 2021-08-24 00:00:00 Completed Meningococcal B, OMV 2021-08-24 00:00:00 Completed Influenza Virus Vaccine Quad .5 mL IM 6+ MO 2019-07-21 00:00:00 Completed [facility] Influenza Virus Vaccine Quad .5 mL IM 6+ MO 2019-07-21 00:00:00 Completed [facility] Influenza Virus Vaccine Quad .5 mL IM 6+ MO 2019-07-21 00:00:00 Completed [facility] Influenza Virus Vaccine Quad .5 mL IM 6+ MO 2019-07-21 00:00:00 Completed [facility] Influenza Virus Vaccine Quad .5 mL IM 6+ MO 2019-07-21 00:00:00 Completed [facility] Influenza Virus Vaccine Quad .5 mL IM 6+ MO 2019-07-21 00:00:00 Completed [facility] Influenza Virus Vaccine Quad .5 mL IM 6+ MO 2019-07-21 00:00:00 Completed [facility] Influenza Virus Vaccine Quad .5 mL IM 6+ MO 2019-07-21 00:00:00 Completed [facility] Influenza Virus Vaccine Quad .5 mL IM 6+ MO 2019-07-21 00:00:00 Completed [facility] Influenza Virus Vaccine Quad .5 mL IM 6+ MO 2019-07-21 00:00:00 Completed [facility] Influenza Virus Vaccine Quad .5 mL IM 6+ MO 2019-07-21 00:00:00 Completed [facility] Influenza Virus Vaccine Quad .5 mL IM 6+ MO 2019-07-21 00:00:00 Completed [facility] Influenza Virus Vaccine Quad .5 mL IM 6+ MO 2019-07-21 00:00:00 Completed [facility] Influenza Virus Vaccine Quad .5 mL IM 6+ MO 2019-07-21 00:00:00 Completed [facility] Influenza Virus Vaccine Quad .5 mL IM 6+ MO 2019-07-21 00:00:00 Completed [facility] Influenza Virus Vaccine Quad .5 mL IM 6+ MO 2019-07-21 00:00:00 Completed [facility] Influenza Virus Vaccine Quad .5 mL IM 6+ MO 2019-07-21 00:00:00 Completed [facility] Influenza Virus Vaccine Quad .5 mL IM 6+ MO 2019-07-21 00:00:00 Completed [facility] Influenza Virus Vaccine Quad .5 mL IM 6+ MO 2019-07-21 00:00:00 Completed [facility] Influenza Virus Vaccine Quad .5 mL IM 6+ MO 2019-07-21 00:00:00 Completed [facility] Influenza Virus Vaccine Quad .5 mL IM 6+ MO 2019-07-21 00:00:00 Completed [facility] Influenza Virus Vaccine Quad .5 mL IM 6+ MO 2019-07-21 00:00:00 Completed [facility] Influenza Virus Vaccine Quad .5 mL IM 6+ MO 2019-07-21 00:00:00 Completed [facility] Influenza Virus Vaccine Quad .5 mL IM 6+ MO 2019-07-21 00:00:00 Completed [facility] Influenza Virus Vaccine Quad .5 mL IM 6+ MO 2019-07-21 00:00:00 Completed [facility] Influenza Virus Vaccine Quad .5 mL IM 6+ MO 2019-07-21 00:00:00 Completed [facility] Influenza Virus Vaccine Quad .5 mL IM 6+ MO 2019-07-21 00:00:00 Completed [facility] Influenza Virus Vaccine Quad .5 mL IM 6+ MO 2019-07-21 00:00:00 Completed [facility] Influenza Virus Vaccine Quad .5 mL IM 6+ MO 2019-07-21 00:00:00 Completed [facility] Influenza Virus Vaccine Quad .5 mL IM 6+ MO (FLUZONE/FLULAVAL/FL UARIX) 2019-07-21 00:00:00 Completed [facility] Influenza Virus Vaccine Quad .5 mL IM 6+ MO (FLUZONE/FLULAVAL/FL UARIX) 2019-07-21 00:00:00 Completed [facility] Influenza Virus Vaccine Quad .5 mL IM 6+ MO (FLUZONE/FLULAVAL/FL UARIX) 2019-07-21 00:00:00 Completed [facility] TDAP 2017-07-11 00:00:00 Completed [facility] Meningococcal Polysaccharide (groups A, C, Y and W-135) conjugate vaccine (MCV4P) 2017-07-11 00:00:00 Completed [facility] Influenza Virus Vaccine Quad IM 3+ YRS 2017-07-11 00:00:00 Completed [facility] TDAP 2017-07-11 00:00:00 Completed [facility] Meningococcal Polysaccharide (groups A, C, Y and W-135) conjugate vaccine (MCV4P) 2017-07-11 00:00:00 Completed [facility] Influenza Virus Vaccine Quad IM 3+ YRS 2017-07-11 00:00:00 Completed [facility] TDAP 2017-07-11 00:00:00 Completed [facility] Meningococcal Polysaccharide (groups A, C, Y and W-135) conjugate vaccine (MCV4P) 2017-07-11 00:00:00 Completed [facility] Influenza Virus Vaccine Quad IM 32017-07-11 00:00:00 Completed [facility] TDAP 2017-07-11 00:00:00 Completed [facility] Meningococcal Polysaccharide (groups A, C, Y and W-135) conjugate vaccine (MCV4P) 2017-07-11 00:00:00 Completed [facility] Influenza Virus Vaccine Quad IM 3 YRS 2017-07-11 00:00:00 Completed [facility] TDAP 2017-07-11 00:00:00 Completed [facility] Meningococcal Polysaccharide (groups A, C, Y and W-135) conjugate vaccine (MCV4P) 2017-07-11 00:00:00 Completed [facility] Influenza Virus Vaccine Quad IM 3+ YRS 2017-07-11 00:00:00 Completed [facility] TDAP 2017-07-11 00:00:00 Completed [facility] Meningococcal Polysaccharide (groups A, C, Y and W-135) conjugate vaccine (MCV4P) 2017-07-11 00:00:00 Completed [facility] Influenza Virus Vaccine Quad IM 32017-07-11 00:00:00 Completed [facility] TDAP 2017-07-11 00:00:00 Completed [facility] Meningococcal Polysaccharide (groups A, C, Y and W-135) conjugate vaccine (MCV4P) 2017-07-11 00:00:00 Completed [facility] Influenza Virus Vaccine Quad IM 32017-07-11 00:00:00 Completed [facility] TDAP 2017-07-11 00:00:00 Completed [facility] Meningococcal Polysaccharide (groups A, C, Y and W-135) conjugate vaccine (MCV4P) 2017-07-11 00:00:00 Completed [facility] Influenza Virus Vaccine Quad IM 2017-07-11 00:00:00 Completed [facility] TDAP 2017-07-11 00:00:00 Completed [facility] Meningococcal Polysaccharide (groups A, C, Y and W-135) conjugate vaccine (MCV4P) 2017-07-11 00:00:00 Completed [facility] Influenza Virus Vaccine Quad IM 2017-07-11 00:00:00 Completed [facility] TDAP 2017-07-11 00:00:00 Completed [facility] Meningococcal Polysaccharide (groups A, C, Y and W-135) conjugate vaccine (MCV4P) 2017-07-11 00:00:00 Completed [facility] Influenza Virus Vaccine Quad IM 2017-07-11 00:00:00 Completed [facility] TDAP 2017-07-11 00:00:00 Completed [facility] Meningococcal Polysaccharide (groups A, C, Y and W-135) conjugate vaccine (MCV4P) 2017-07-11 00:00:00 Completed [facility] Influenza Virus Vaccine Quad IM 32017-07-11 00:00:00 Completed [facility] TDAP 2017-07-11 00:00:00 Completed [facility] Meningococcal Polysaccharide (groups A, C, Y and W-135) conjugate vaccine (MCV4P) 2017-07-11 00:00:00 Completed [facility] Influenza Virus Vaccine Quad IM 32017-07-11 00:00:00 Completed [facility] TDAP 2017-07-11 00:00:00 Completed [facility] Meningococcal Polysaccharide (groups A, C, Y and W-135) conjugate vaccine (MCV4P) 2017-07-11 00:00:00 Completed [facility] Influenza Virus Vaccine Quad IM 2017-07-11 00:00:00 Completed [facility] TDAP 2017-07-11 00:00:00 Completed [facility] Meningococcal Polysaccharide (groups A, C, Y and W-135) conjugate vaccine (MCV4P) 2017-07-11 00:00:00 Completed [facility] Influenza Virus Vaccine Quad IM 2017-07-11 [facility] Meningococcal Polysaccharide (groups A, C, Y and W-135) conjugate vaccine (MCV4P) 2017-07-11 00:00:00 Completed [facility] Influenza Virus Vaccine Quad IM 2017-07-11 00:00:00 Completed [facility] TDAP 2017-07-11 00:00:00 Completed [facility] Meningococcal Polysaccharide (groups A, C, Y and W-135) conjugate vaccine (MCV4P) 2017-07-11 00:00:00 Completed [facility] Influenza Virus Vaccine Quad IM 2017-07-11 00:00:00 Completed [facility] TDAP 2017-07-11 00:00:00 Completed [facility] Meningococcal Polysaccharide (groups A, C, Y and W-135) conjugate vaccine (MCV4P) 2017-07-11 00:00:00 Completed [facility] Influenza Virus Vaccine Quad IM 2017-07-11 00:00:00 Completed [facility] TDAP 2017-07-11 00:00:00 Completed [facility] Meningococcal Polysaccharide (groups A, C, Y and W-135) conjugate vaccine (MCV4P) 2017-07-11 00:00:00 Completed [facility] Influenza Virus Vaccine Quad IM 32017-07-11 00:00:00 Completed [facility] TDAP 2017-07-11 00:00:00 Completed [facility] Meningococcal Polysaccharide (groups A, C, Y and W-135) conjugate vaccine (MCV4P) 2017-07-11 00:00:00 Completed [facility] Influenza Virus Vaccine Quad IM 2017-07-11 00:00:00 Completed [facility] TDAP 2017-07-11 00:00:00 Completed [facility] Meningococcal Polysaccharide (groups A, C, Y and W-135) conjugate vaccine (MCV4P) 2017-07-11 00:00:00 Completed [facility] Influenza Virus Vaccine Quad IM 2017-07-11 00:00:00 Completed [facility] TDAP 2017-07-11 00:00:00 Completed [facility] Meningococcal Polysaccharide (groups A, C, Y and W-135) conjugate vaccine (MCV4P) 2017-07-11 00:00:00 Completed [facility] Influenza Virus Vaccine Quad IM 2017-07-11 00:00:00 Completed [facility] TDAP 2017-07-11 00:00:00 Completed [facility] Meningococcal Polysaccharide (groups A, C, Y and W-135) conjugate vaccine (MCV4P) 2017-07-11 00:00:00 Completed [facility] Influenza Virus Vaccine Quad IM 2017-07-11 00:00:00 Completed [facility] TDAP 2017-07-11 00:00:00 Completed [facility] Meningococcal Polysaccharide (groups A, C, Y and W-135) conjugate vaccine (MCV4P) 2017-07-11 00:00:00 Completed [facility] Influenza Virus Vaccine Quad IM 2017-07-11 00:00:00 Completed [facility] TDAP 2017-07-11 00:00:00 Completed [facility] Meningococcal Polysaccharide (groups A, C, Y and W-135) conjugate vaccine (MCV4P) 2017-07-11 00:00:00 Completed [facility] Influenza Virus Vaccine Quad IM 2017-07-11 00:00:00 Completed [facility] TDAP 2017-07-11 00:00:00 Completed [facility] Meningococcal Polysaccharide (groups A, C, Y and W-135) conjugate vaccine (MCV4P) 2017-07-11 00:00:00 Completed [facility] Influenza Virus Vaccine Quad IM 32017-07-11 00:00:00 Completed [facility] TDAP 2017-07-11 00:00:00 Completed [facility] Meningococcal Polysaccharide (groups A, C, Y and W-135) conjugate vaccine (MCV4P) 2017-07-11 00:00:00 Completed [facility] Influenza Virus Vaccine Quad IM 32017-07-11 00:00:00 Completed [facility] TDAP 2017-07-11 00:00:00 Completed [facility] Meningococcal Polysaccharide (groups A, C, Y and W-135) conjugate vaccine (MCV4P) 2017-07-11 00:00:00 Completed [facility] Influenza Virus Vaccine Quad IM 2017-07-11 00:00:00 Completed [facility] TDAP 2017-07-11 00:00:00 Completed [facility] Meningococcal Polysaccharide (groups A, C, Y and W-135) conjugate vaccine (MCV4P) 2017-07-11 00:00:00 Completed [facility] Influenza Virus Vaccine Quad IM 2017-07-11 00:00:00 Completed [facility] TDAP 2017-07-11 00:00:00 Completed [facility] Meningococcal Polysaccharide (groups A, C, Y and W-135) conjugate vaccine (MCV4P) 2017-07-11 00:00:00 Completed [facility] Influenza Virus Vaccine Quad IM 32017-07-11 00:00:00 Completed [facility] TDAP 2017-07-11 00:00:00 Completed [facility] Meningococcal Polysaccharide (groups A, C, Y and W-135) conjugate vaccine (MCV4P) 2017-07-11 00:00:00 Completed [facility] Influenza Virus Vaccine Quad IM 32017-07-11 00:00:00 Completed [facility] TDAP 2017-07-11 00:00:00 Completed [facility] Meningococcal Polysaccharide (groups A, C, Y and W-135) conjugate vaccine (MCV4P) 2017-07-11 00:00:00 Completed [facility] Influenza Virus Vaccine Quad IM 3+ YRS 2017-07-11 00:00:00 Completed [facility] TDAP 2017-07-11 00:00:00 Completed Meningococcal Polysaccharide (groups A, C, Y and W-135) conjugate vaccine (MCV4P) 2017-07-11 00:00:00 Completed Influenza Virus Vaccine Quad IM 3+ YRS 2017-07-11 00:00:00 Completed Influenza Virus Vaccine Quad IM 3+ YRS 2016-08-13 00:00:00 Completed [facility] Influenza Virus Vaccine 2016-08-13 00:00:00 Completed [facility] Influenza Virus Vaccine Quad IM 3+ YRS 2016-08-13 00:00:00 Completed [facility] Influenza Virus Vaccine 2016-08-13 00:00:00 Completed [facility] Influenza Virus Vaccine Quad IM 3+ YRS 2016-08-13 00:00:00 Completed [facility] Influenza Virus Vaccine 2016-08-13 00:00:00 Completed [facility] Influenza Virus Vaccine Quad IM 3+ YRS 2016-08-13 00:00:00 Completed [facility] Influenza Virus Vaccine 2016-08-13 00:00:00 Completed [facility] Influenza Virus Vaccine Quad IM 3+ YRS 2016-08-13 00:00:00 Completed [facility] Influenza Virus Vaccine 2016-08-13 00:00:00 Completed [facility] Influenza Virus Vaccine Quad IM 3+ YRS 2016-08-13 00:00:00 Completed [facility] Influenza Virus Vaccine 2016-08-13 00:00:00 Completed [facility] Influenza Virus Vaccine Quad IM 3+ YRS 2016-08-13 00:00:00 Completed [facility] Influenza Virus Vaccine 2016-08-13 00:00:00 Completed [facility] Influenza Virus Vaccine Quad IM 3+ YRS 2016-08-13 00:00:00 Completed [facility] Influenza Virus Vaccine 2016-08-13 00:00:00 Completed [facility] Influenza Virus Vaccine Quad IM 3+ YRS 2016-08-13 00:00:00 Completed [facility] Influenza Virus Vaccine 2016-08-13 00:00:00 Completed [facility] Influenza Virus Vaccine Quad IM 3+ YRS 2016-08-13 00:00:00 Completed [facility] Influenza Virus Vaccine 2016-08-13 00:00:00 Completed [facility] Influenza Virus Vaccine Quad IM 3+ YRS 2016-08-13 00:00:00 Completed [facility] Influenza Virus Vaccine 2016-08-13 00:00:00 Completed [facility] Influenza Virus Vaccine Quad IM 3+ YRS 2016-08-13 00:00:00 Completed [facility] Influenza Virus Vaccine 2016-08-13 00:00:00 Completed [facility] Influenza Virus Vaccine Quad IM 3+ YRS 2016-08-13 00:00:00 Completed [facility] Influenza Virus Vaccine 2016-08-13 00:00:00 Completed [facility] Influenza Virus Vaccine Quad IM 3+ YRS 2016-08-13 00:00:00 Completed [facility] Influenza Virus Vaccine 2016-08-13 00:00:00 Completed [facility] Influenza Virus Vaccine Quad IM 3+ YRS 2016-08-13 00:00:00 Completed [facility] Influenza Virus Vaccine 2016-08-13 00:00:00 Completed [facility] Influenza Virus Vaccine Quad IM 3+ YRS 2016-08-13 00:00:00 Completed [facility] Influenza Virus Vaccine 2016-08-13 00:00:00 Completed [facility] Influenza Virus Vaccine Quad IM 3+ YRS 2016-08-13 00:00:00 Completed [facility] Influenza Virus Vaccine 2016-08-13 00:00:00 Completed [facility] Influenza Virus Vaccine Quad IM 3+ YRS 2016-08-13 00:00:00 Completed [facility] Influenza Virus Vaccine 2016-08-13 00:00:00 Completed [facility] Influenza Virus Vaccine Quad IM 3+ YRS 2016-08-13 00:00:00 Completed [facility] Influenza Virus Vaccine 2016-08-13 00:00:00 Completed [facility] Influenza Virus Vaccine Quad IM 3+ YRS 2016-08-13 00:00:00 Completed [facility] Influenza Virus Vaccine 2016-08-13 00:00:00 Completed [facility] Influenza Virus Vaccine Quad IM 3+ YRS 2016-08-13 00:00:00 Completed [facility] Influenza Virus Vaccine 2016-08-13 00:00:00 Completed [facility] Influenza Virus Vaccine Quad IM 3+ YRS 2016-08-13 00:00:00 Completed [facility] Influenza Virus Vaccine 2016-08-13 00:00:00 Completed [facility] Influenza Virus Vaccine Quad IM 3+ YRS 2016-08-13 00:00:00 Completed [facility] Influenza Virus Vaccine 2016-08-13 00:00:00 Completed [facility] Influenza Virus Vaccine Quad IM 3+ YRS 2016-08-13 00:00:00 Completed [facility] Influenza Virus Vaccine 2016-08-13 00:00:00 Completed [facility] Influenza Virus Vaccine Quad IM 3+ YRS 2016-08-13 00:00:00 Completed [facility] Influenza Virus Vaccine 2016-08-13 00:00:00 Completed [facility] Influenza Virus Vaccine Quad IM 3+ YRS 2016-08-13 00:00:00 Completed [facility] Influenza Virus Vaccine 2016-08-13 00:00:00 Completed [facility] Influenza Virus Vaccine Quad IM 3+ YRS 2016-08-13 00:00:00 Completed [facility] Influenza Virus Vaccine 2016-08-13 00:00:00 Completed [facility] Influenza Virus Vaccine Quad IM 3+ YRS 2016-08-13 00:00:00 Completed [facility] Influenza Virus Vaccine 2016-08-13 00:00:00 Completed [facility] Influenza Virus Vaccine Quad IM 3+ YRS 2016-08-13 00:00:00 Completed [facility] Influenza Virus Vaccine 2016-08-13 00:00:00 Completed [facility] Influenza Virus Vaccine Quad IM 3+ YRS 2016-08-13 00:00:00 Completed [facility] Influenza Virus Vaccine 2016-08-13 00:00:00 Completed [facility] Influenza Virus Vaccine Quad IM 3+ YRS 2016-08-13 00:00:00 Completed [facility] Influenza Virus Vaccine 2016-08-13 00:00:00 Completed [facility] Influenza Virus Vaccine Quad IM 3+ YRS 2016-08-13 00:00:00 Completed Influenza Virus Vaccine 2016-08-13 00:00:00 Completed Influenza Virus Vaccine 2015-11-01 00:00:00 Completed [facility] Influenza Virus Vaccine 2015-11-01 00:00:00 Completed [facility] Influenza Virus Vaccine 2015-11-01 00:00:00 Completed [facility] Influenza Virus Vaccine 2015-11-01 00:00:00 Completed [facility] Influenza Virus Vaccine 2015-11-01 00:00:00 Completed [facility] Influenza Virus Vaccine 2015-11-01 00:00:00 Completed [facility] Influenza Virus Vaccine 2015-11-01 00:00:00 Completed [facility] Influenza Virus Vaccine 2015-11-01 00:00:00 Completed [facility] Influenza Virus Vaccine 2015-11-01 00:00:00 Completed [facility] Influenza Virus Vaccine 2015-11-01 00:00:00 Completed [facility] Influenza Virus Vaccine 2015-11-01 00:00:00 Completed [facility] Influenza Virus Vaccine 2015-11-01 00:00:00 Completed [facility] Influenza Virus Vaccine 2015-11-01 00:00:00 Completed [facility] Influenza Virus Vaccine 2015-11-01 00:00:00 Completed [facility] Influenza Virus Vaccine 2015-11-01 00:00:00 Completed [facility] Influenza Virus Vaccine 2015-11-01 00:00:00 Completed [facility] Influenza Virus Vaccine 2015-11-01 00:00:00 Completed [facility] Influenza Virus Vaccine 2015-11-01 00:00:00 Completed [facility] Influenza Virus Vaccine 2015-11-01 00:00:00 Completed [facility] Influenza Virus Vaccine 2015-11-01 00:00:00 Completed [facility] Influenza Virus Vaccine 2015-11-01 00:00:00 Completed [facility] Influenza Virus Vaccine 2015-11-01 00:00:00 Completed [facility] Influenza Virus Vaccine 2015-11-01 00:00:00 Completed [facility] Influenza Virus Vaccine 2015-11-01 00:00:00 Completed [facility] Influenza Virus Vaccine 2015-11-01 00:00:00 Completed [facility] Influenza Virus Vaccine 2015-11-01 00:00:00 Completed [facility] Influenza Virus Vaccine 2015-11-01 00:00:00 Completed [facility] Influenza Virus Vaccine 2015-11-01 00:00:00 Completed [facility] Influenza Virus Vaccine 2015-11-01 00:00:00 Completed [facility] Influenza Virus Vaccine 2015-11-01 00:00:00 Completed [facility] Influenza Virus Vaccine 2015-11-01 00:00:00 Completed [facility] Influenza Virus Vaccine 2015-11-01 00:00:00 Completed Influenza, split virus, trivalent, PF (AFLURIA/FLUARIX/FLU LAVAL/FLUZONE) 2015-11-01 00:00:00 Completed HEPATITIS A 2009-08-15 00:00:00 Completed [facility] MMR 2009-08-15 00:00:00 Completed [facility] Varicella (varivax)(chicken pox) 2009-08-15 00:00:00 Completed [facility] Polio (IPV/OPV) 2009-08-15 00:00:00 Completed [facility] HEPATITIS A 2009-08-15 00:00:00 Completed [facility] MMR 2009-08-15 00:00:00 Completed [facility] Varicella (varivax)(chicken pox) 2009-08-15 00:00:00 Completed [facility] Polio (IPV/OPV) 2009-08-15 00:00:00 Completed [facility] HEPATITIS A 2009-08-15 00:00:00 Completed [facility] MMR 2009-08-15 00:00:00 Completed [facility] Varicella (varivax)(chicken pox) 2009-08-15 00:00:00 Completed [facility] Polio (IPV/OPV) 2009-08-15 00:00:00 Completed [facility] HEPATITIS A 2009-08-15 00:00:00 Completed [facility] MMR 2009-08-15 00:00:00 Completed [facility] Varicella (varivax)(chicken pox) 2009-08-15 00:00:00 Completed [facility] Polio (IPV/OPV) 2009-08-15 00:00:00 Completed [facility] HEPATITIS A 2009-08-15 00:00:00 Completed [facility] MMR 2009-08-15 00:00:00 Completed [facility] Varicella (varivax)(chicken pox) 2009-08-15 00:00:00 Completed [facility] Polio (IPV/OPV) 2009-08-15 00:00:00 Completed [facility] HEPATITIS A 2009-08-15 00:00:00 Completed [facility] MMR 2009-08-15 00:00:00 Completed [facility] Varicella (varivax)(chicken pox) 2009-08-15 00:00:00 Completed [facility] Polio (IPV/OPV) 2009-08-15 00:00:00 Completed [facility] HEPATITIS A 2009-08-15 00:00:00 Completed [facility] MMR 2009-08-15 00:00:00 Completed [facility] Varicella (varivax)(chicken pox) 2009-08-15 00:00:00 Completed [facility] Polio (IPV/OPV) 2009-08-15 00:00:00 Completed [facility] HEPATITIS A 2009-08-15 00:00:00 Completed [facility] 2009-08-15 00:00:00 Completed [facility] Varicella (varivax)(chicken pox) 2009-08-15 00:00:00 Completed [facility] Polio (IPV/OPV) 2009-08-15 00:00:00 Completed [facility] HEPATITIS A 2009-08-15 00:00:00 Completed [facility] 2009-08-15 00:00:00 Completed [facility] Varicella (varivax)(chicken pox) 2009-08-15 00:00:00 Completed [facility] Polio (IPV/OPV) 2009-08-15 00:00:00 Completed [facility] HEPATITIS A 2009-08-15 00:00:00 Completed [facility] 2009-08-15 00:00:00 Completed [facility] Varicella (varivax)(chicken pox) 2009-08-15 00:00:00 Completed [facility] Polio (IPV/OPV) 2009-08-15 00:00:00 Completed [facility] HEPATITIS A 2009-08-15 00:00:00 Completed [facility] MMR 2009-08-15 00:00:00 Completed [facility] Varicella (varivax)(chicken pox) 2009-08-15 00:00:00 Completed [facility] Polio (IPV/OPV) 2009-08-15 00:00:00 Completed [facility] HEPATITIS A 2009-08-15 00:00:00 Completed [facility] MMR 2009-08-15 00:00:00 Completed [facility] Varicella (varivax)(chicken pox) 2009-08-15 00:00:00 Completed [facility] Polio (IPV/OPV) 2009-08-15 00:00:00 Completed [facility] HEPATITIS A 2009-08-15 00:00:00 Completed [facility] MMR 2009-08-15 00:00:00 Completed [facility] Varicella (varivax)(chicken pox) 2009-08-15 00:00:00 Completed [facility] Polio (IPV/OPV) 2009-08-15 00:00:00 Completed [facility] HEPATITIS A 2009-08-15 00:00:00 Completed [facility] MMR 2009-08-15 00:00:00 Completed [facility] Varicella (varivax)(chicken pox) 2009-08-15 00:00:00 Completed [facility] Polio (IPV/OPV) 2009-08-15 00:00:00 Completed [facility] HEPATITIS A 2009-08-15 00:00:00 Completed [facility] MMR 2009-08-15 00:00:00 Completed [facility] Varicella (varivax)(chicken pox) 2009-08-15 00:00:00 Completed [facility] Polio (IPV/OPV) 2009-08-15 00:00:00 Completed [facility] HEPATITIS A 2009-08-15 00:00:00 Completed [facility] MMR 2009-08-15 00:00:00 Completed [facility] Varicella (varivax)(chicken pox) 2009-08-15 00:00:00 Completed [facility] Polio (IPV/OPV) 2009-08-15 00:00:00 Completed [facility] HEPATITIS A 2009-08-15 00:00:00 Completed [facility] MMR 2009-08-15 00:00:00 Completed [facility] Varicella (varivax)(chicken pox) 2009-08-15 00:00:00 Completed [facility] Polio (IPV/OPV) 2009-08-15 00:00:00 Completed [facility] HEPATITIS A 2009-08-15 00:00:00 Completed [facility] MMR 2009-08-15 00:00:00 Completed [facility] Varicella (varivax)(chicken pox) 2009-08-15 00:00:00 Completed [facility] Polio (IPV/OPV) 2009-08-15 00:00:00 Completed [facility] HEPATITIS A 2009-08-15 00:00:00 Completed [facility] MMR 2009-08-15 00:00:00 Completed [facility] Varicella (varivax)(chicken pox) 2009-08-15 00:00:00 Completed [facility] Polio (IPV/OPV) 2009-08-15 00:00:00 Completed [facility] HEPATITIS A 2009-08-15 00:00:00 Completed [facility] MMR 2009-08-15 00:00:00 Completed [facility] Varicella (varivax)(chicken pox) 2009-08-15 00:00:00 Completed [facility] Polio (IPV/OPV) 2009-08-15 00:00:00 Completed [facility] HEPATITIS A 2009-08-15 00:00:00 Completed [facility] MMR 2009-08-15 00:00:00 Completed [facility] Varicella (varivax)(chicken pox) 2009-08-15 00:00:00 Completed [facility] Polio (IPV/OPV) 2009-08-15 00:00:00 Completed [facility] HEPATITIS A 2009-08-15 00:00:00 Completed [facility] MMR 2009-08-15 00:00:00 Completed [facility] Varicella (varivax)(chicken pox) 2009-08-15 00:00:00 Completed [facility] Polio (IPV/OPV) 2009-08-15 00:00:00 Completed [facility] HEPATITIS A 2009-08-15 00:00:00 Completed [facility] MMR 2009-08-15 00:00:00 Completed [facility] Varicella (varivax)(chicken pox) 2009-08-15 00:00:00 Completed [facility] Polio (IPV/OPV) 2009-08-15 00:00:00 Completed [facility] HEPATITIS A 2009-08-15 00:00:00 Completed [facility] MMR 2009-08-15 00:00:00 Completed [facility] Varicella (varivax)(chicken pox) 2009-08-15 00:00:00 Completed [facility] Polio (IPV/OPV) 2009-08-15 00:00:00 Completed [facility] HEPATITIS A 2009-08-15 00:00:00 Completed [facility] MMR 2009-08-15 00:00:00 Completed [facility] Varicella (varivax)(chicken pox) 2009-08-15 00:00:00 Completed [facility] Polio (IPV/OPV) 2009-08-15 00:00:00 Completed [facility] HEPATITIS A 2009-08-15 00:00:00 Completed [facility] 2009-08-15 00:00:00 Completed [facility] Varicella (varivax)(chicken pox) 2009-08-15 00:00:00 Completed [facility] Polio (IPV/OPV) 2009-08-15 00:00:00 Completed [facility] HEPATITIS A 2009-08-15 00:00:00 Completed [facility] MMR 2009-08-15 00:00:00 Completed [facility] Varicella (varivax)(chicken pox) 2009-08-15 00:00:00 Completed [facility] Polio (IPV/OPV) 2009-08-15 00:00:00 Completed [facility] HEPATITIS A 2009-08-15 00:00:00 Completed [facility] MMR 2009-08-15 00:00:00 Completed [facility] Varicella (varivax)(chicken pox) 2009-08-15 00:00:00 Completed [facility] Polio (IPV/OPV) 2009-08-15 00:00:00 Completed [facility] HEPATITIS A 2009-08-15 00:00:00 Completed [facility] MMR 2009-08-15 00:00:00 Completed [facility] Varicella (varivax)(chicken pox) 2009-08-15 00:00:00 Completed [facility] Polio (IPV/OPV) 2009-08-15 00:00:00 Completed [facility] HEPATITIS A 2009-08-15 00:00:00 Completed [facility] MMR 2009-08-15 00:00:00 Completed [facility] Varicella (varivax)(chicken pox) 2009-08-15 00:00:00 Completed [facility] Polio (IPV/OPV) 2009-08-15 00:00:00 Completed [facility] HEPATITIS A 2009-08-15 00:00:00 Completed [facility] MMR 2009-08-15 00:00:00 Completed [facility] Varicella (varivax)(chicken pox) 2009-08-15 00:00:00 Completed [facility] Polio (IPV/OPV) 2009-08-15 00:00:00 Completed [facility] HEPATITIS A 2009-08-15 00:00:00 Completed MMR 2009-08-15 00:00:00 Completed Varicella (varivax)(chicken pox) 2009-08-15 00:00:00 Completed Polio (IPV/OPV) 2009-08-15 00:00:00 Completed HEPATITIS A 2007-04-21 00:00:00 Completed [facility] HEPATITIS A 2007-04-21 00:00:00 Completed [facility] HEPATITIS A 2007-04-21 00:00:00 Completed [facility] HEPATITIS A 2007-04-21 00:00:00 Completed [facility] HEPATITIS A 2007-04-21 00:00:00 Completed [facility] HEPATITIS A 2007-04-21 00:00:00 Completed [facility] HEPATITIS A 2007-04-21 00:00:00 Completed [facility] HEPATITIS A 2007-04-21 00:00:00 Completed [facility] HEPATITIS A 2007-04-21 00:00:00 Completed [facility] HEPATITIS A 2007-04-21 00:00:00 Completed [facility] HEPATITIS A 2007-04-21 00:00:00 Completed [facility] HEPATITIS A 2007-04-21 00:00:00 Completed [facility] HEPATITIS A 2007-04-21 00:00:00 Completed [facility] HEPATITIS A 2007-04-21 00:00:00 Completed [facility] HEPATITIS A 2007-04-21 00:00:00 Completed [facility] HEPATITIS A 2007-04-21 00:00:00 Completed [facility] HEPATITIS A 2007-04-21 00:00:00 Completed [facility] HEPATITIS A 2007-04-21 00:00:00 Completed [facility] HEPATITIS A 2007-04-21 00:00:00 Completed [facility] HEPATITIS A 2007-04-21 00:00:00 Completed [facility] HEPATITIS A 2007-04-21 00:00:00 Completed [facility] HEPATITIS A 2007-04-21 00:00:00 Completed [facility] HEPATITIS A 2007-04-21 00:00:00 Completed [facility] HEPATITIS A 2007-04-21 00:00:00 Completed [facility] HEPATITIS A 2007-04-21 00:00:00 Completed [facility] HEPATITIS A 2007-04-21 00:00:00 Completed [facility] HEPATITIS A 2007-04-21 00:00:00 Completed [facility] HEPATITIS A 2007-04-21 00:00:00 Completed [facility] HEPATITIS A 2007-04-21 00:00:00 Completed [facility] HEPATITIS A 2007-04-21 00:00:00 Completed [facility] HEPATITIS A 2007-04-21 00:00:00 Completed [facility] HEPATITIS A 2007-04-21 00:00:00 Completed DTAP 2006-11-21 00:00:00 Completed [facility] HIB 4 Dose Schedule 2006-11-21 00:00:00 Completed [facility] Pneumococcal 7 Conjugate, PCV7 (Prevnar7) 2006-11-21 00:00:00 Completed [facility] DTAP 2006-11-21 00:00:00 Completed [facility] HIB 4 Dose Schedule 2006-11-21 00:00:00 Completed [facility] Pneumococcal 7 Conjugate, PCV7 (Prevnar7) 2006-11-21 00:00:00 Completed [facility] DTAP 2006-11-21 00:00:00 Completed [facility] HIB 4 Dose Schedule 2006-11-21 00:00:00 Completed [facility] Pneumococcal 7 Conjugate, PCV7 (Prevnar7) 2006-11-21 00:00:00 Completed [facility] DTAP 2006-11-21 00:00:00 Completed [facility] HIB 4 Dose Schedule 2006-11-21 00:00:00 Completed [facility] Pneumococcal 7 Conjugate, PCV7 (Prevnar7) 2006-11-21 00:00:00 Completed [facility] DTAP 2006-11-21 00:00:00 Completed [facility] HIB 4 Dose Schedule 2006-11-21 00:00:00 Completed [facility] Pneumococcal 7 Conjugate, PCV7 (Prevnar7) 2006-11-21 00:00:00 Completed [facility] DTAP 2006-11-21 00:00:00 Completed [facility] HIB 4 Dose Schedule 2006-11-21 00:00:00 Completed [facility] Pneumococcal 7 Conjugate, PCV7 (Prevnar7) 2006-11-21 00:00:00 Completed [facility] DTAP 2006-11-21 00:00:00 Completed [facility] HIB 4 Dose Schedule 2006-11-21 00:00:00 Completed [facility] Pneumococcal 7 Conjugate, PCV7 (Prevnar7) 2006-11-21 00:00:00 Completed [facility] DTAP 2006-11-21 00:00:00 Completed [facility] HIB 4 Dose Schedule 2006-11-21 00:00:00 Completed [facility] Pneumococcal 7 Conjugate, PCV7 (Prevnar7) 2006-11-21 00:00:00 Completed [facility] DTAP 2006-11-21 00:00:00 Completed [facility] HIB 4 Dose Schedule 2006-11-21 00:00:00 Completed [facility] Pneumococcal 7 Conjugate, PCV7 (Prevnar7) 2006-11-21 00:00:00 Completed [facility] DTAP 2006-11-21 00:00:00 Completed [facility] HIB 4 Dose Schedule 2006-11-21 00:00:00 Completed [facility] Pneumococcal 7 Conjugate, PCV7 (Prevnar7) 2006-11-21 00:00:00 Completed [facility] DTAP 2006-11-21 00:00:00 Completed [facility] HIB 4 Dose Schedule 2006-11-21 00:00:00 Completed [facility] Pneumococcal 7 Conjugate, PCV7 (Prevnar7) 2006-11-21 00:00:00 Completed [facility] DTAP 2006-11-21 00:00:00 Completed [facility] HIB 4 Dose Schedule 2006-11-21 00:00:00 Completed [facility] Pneumococcal 7 Conjugate, PCV7 (Prevnar7) 2006-11-21 00:00:00 Completed [facility] DTAP 2006-11-21 00:00:00 Completed [facility] HIB 4 Dose Schedule 2006-11-21 00:00:00 Completed [facility] Pneumococcal 7 Conjugate, PCV7 (Prevnar7) 2006-11-21 00:00:00 Completed [facility] DTAP 2006-11-21 00:00:00 Completed [facility] HIB 4 Dose Schedule 2006-11-21 00:00:00 Completed [facility] Pneumococcal 7 Conjugate, PCV7 (Prevnar7) 2006-11-21 00:00:00 Completed [facility] DTAP 2006-11-21 00:00:00 Completed [facility] HIB 4 Dose Schedule 2006-11-21 00:00:00 Completed [facility] Pneumococcal 7 Conjugate, PCV7 (Prevnar7) 2006-11-21 00:00:00 Completed [facility] DTAP 2006-11-21 00:00:00 Completed [facility] HIB 4 Dose Schedule 2006-11-21 00:00:00 Completed [facility] Pneumococcal 7 Conjugate, PCV7 (Prevnar7) 2006-11-21 00:00:00 Completed [facility] DTAP 2006-11-21 00:00:00 Completed [facility] HIB 4 Dose Schedule 2006-11-21 00:00:00 Completed [facility] Pneumococcal 7 Conjugate, PCV7 (Prevnar7) 2006-11-21 00:00:00 Completed [facility] DTAP 2006-11-21 00:00:00 Completed [facility] HIB 4 Dose Schedule 2006-11-21 00:00:00 Completed [facility] Pneumococcal 7 Conjugate, PCV7 (Prevnar7) 2006-11-21 00:00:00 Completed [facility] DTAP 2006-11-21 00:00:00 Completed [facility] HIB 4 Dose Schedule 2006-11-21 00:00:00 Completed [facility] Pneumococcal 7 Conjugate, PCV7 (Prevnar7) 2006-11-21 00:00:00 Completed [facility] DTAP 2006-11-21 00:00:00 Completed [facility] HIB 4 Dose Schedule 2006-11-21 00:00:00 Completed [facility] Pneumococcal 7 Conjugate, PCV7 (Prevnar7) 2006-11-21 00:00:00 Completed [facility] DTAP 2006-11-21 00:00:00 Completed [facility] HIB 4 Dose Schedule 2006-11-21 00:00:00 Completed [facility] Pneumococcal 7 Conjugate, PCV7 (Prevnar7) 2006-11-21 00:00:00 Completed [facility] DTAP 2006-11-21 00:00:00 Completed [facility] HIB 4 Dose Schedule 2006-11-21 00:00:00 Completed [facility] Pneumococcal 7 Conjugate, PCV7 (Prevnar7) 2006-11-21 00:00:00 Completed [facility] DTAP 2006-11-21 00:00:00 Completed [facility] HIB 4 Dose Schedule 2006-11-21 00:00:00 Completed [facility] Pneumococcal 7 Conjugate, PCV7 (Prevnar7) 2006-11-21 00:00:00 Completed [facility] DTAP 2006-11-21 00:00:00 Completed [facility] HIB 4 Dose Schedule 2006-11-21 00:00:00 Completed [facility] Pneumococcal 7 Conjugate, PCV7 (Prevnar7) 2006-11-21 00:00:00 Completed [facility] DTAP 2006-11-21 00:00:00 Completed [facility] HIB 4 Dose Schedule 2006-11-21 00:00:00 Completed [facility] Pneumococcal 7 Conjugate, PCV7 (Prevnar7) 2006-11-21 00:00:00 Completed [facility] DTAP 2006-11-21 00:00:00 Completed [facility] HIB 4 Dose Schedule 2006-11-21 00:00:00 Completed [facility] Pneumococcal 7 Conjugate, PCV7 (Prevnar7) 2006-11-21 00:00:00 Completed [facility] DTAP 2006-11-21 00:00:00 Completed [facility] HIB 4 Dose Schedule 2006-11-21 00:00:00 Completed [facility] Pneumococcal 7 Conjugate, PCV7 (Prevnar7) 2006-11-21 00:00:00 Completed [facility] DTAP 2006-11-21 00:00:00 Completed [facility] HIB 4 Dose Schedule 2006-11-21 00:00:00 Completed [facility] Pneumococcal 7 Conjugate, PCV7 (Prevnar7) 2006-11-21 00:00:00 Completed [facility] DTAP 2006-11-21 00:00:00 Completed [facility] HIB 4 Dose Schedule 2006-11-21 00:00:00 Completed [facility] Pneumococcal 7 Conjugate, PCV7 (Prevnar7) 2006-11-21 00:00:00 Completed [facility] DTAP 2006-11-21 00:00:00 Completed [facility] HIB 4 Dose Schedule 2006-11-21 00:00:00 Completed [facility] Pneumococcal 7 Conjugate, PCV7 (Prevnar7) 2006-11-21 00:00:00 Completed [facility] DTAP 2006-11-21 00:00:00 Completed [facility] HIB 4 Dose Schedule 2006-11-21 00:00:00 Completed [facility] Pneumococcal 7 Conjugate, PCV7 (Prevnar7) 2006-11-21 00:00:00 Completed [facility] DTAP 2006-11-21 00:00:00 Completed [facility] HIB 4 Dose Schedule 2006-11-21 00:00:00 Completed Pneumococcal 7 Conjugate, PCV7 (Prevnar7) 2006-11-21 00:00:00 Completed HIB 4 Dose Schedule 2006-01-08 00:00:00 Completed [facility] MMR 2006-01-08 00:00:00 Completed [facility] Pediarix (dtap/hep B/ipv) 2006-01-08 00:00:00 Completed [facility] Varicella (varivax)(chicken pox) 2006-01-08 00:00:00 Completed [facility] Pneumococcal 7 Conjugate, PCV7 (Prevnar7) 2006-01-08 00:00:00 Completed [facility] HIB 4 Dose Schedule 2006-01-08 00:00:00 Completed [facility] MMR 2006-01-08 00:00:00 Completed [facility] Pediarix (dtap/hep B/ipv) 2006-01-08 00:00:00 Completed [facility] Varicella (varivax)(chicken pox) 2006-01-08 00:00:00 Completed [facility] Pneumococcal 7 Conjugate, PCV7 (Prevnar7) 2006-01-08 00:00:00 Completed [facility] HIB 4 Dose Schedule 2006-01-08 00:00:00 Completed [facility] MMR 2006-01-08 00:00:00 Completed [facility] Pediarix (dtap/hep B/ipv) 2006-01-08 00:00:00 Completed [facility] Varicella (varivax)(chicken pox) 2006-01-08 00:00:00 Completed [facility] Pneumococcal 7 Conjugate, PCV7 (Prevnar7) 2006-01-08 00:00:00 Completed [facility] HIB 4 Dose Schedule 2006-01-08 00:00:00 Completed [facility] MMR 2006-01-08 00:00:00 Completed [facility] Pediarix (dtap/hep B/ipv) 2006-01-08 00:00:00 Completed [facility] Varicella (varivax)(chicken pox) 2006-01-08 00:00:00 Completed [facility] Pneumococcal 7 Conjugate, PCV7 (Prevnar7) 2006-01-08 00:00:00 Completed [facility] HIB 4 Dose Schedule 2006-01-08 00:00:00 Completed [facility] MMR 2006-01-08 00:00:00 Completed [facility] Pediarix (dtap/hep B/ipv) 2006-01-08 00:00:00 Completed [facility] Varicella (varivax)(chicken pox) 2006-01-08 00:00:00 Completed [facility] Pneumococcal 7 Conjugate, PCV7 (Prevnar7) 2006-01-08 00:00:00 Completed [facility] HIB 4 Dose Schedule 2006-01-08 00:00:00 Completed [facility] MMR 2006-01-08 00:00:00 Completed [facility] Pediarix (dtap/hep B/ipv) 2006-01-08 00:00:00 Completed [facility] Varicella (varivax)(chicken pox) 2006-01-08 00:00:00 Completed [facility] Pneumococcal 7 Conjugate, PCV7 (Prevnar7) 2006-01-08 00:00:00 Completed [facility] HIB 4 Dose Schedule 2006-01-08 00:00:00 Completed [facility] MMR 2006-01-08 00:00:00 Completed [facility] Pediarix (dtap/hep B/ipv) 2006-01-08 00:00:00 Completed [facility] Varicella (varivax)(chicken pox) 2006-01-08 00:00:00 Completed [facility] Pneumococcal 7 Conjugate, PCV7 (Prevnar7) 2006-01-08 00:00:00 Completed [facility] HIB 4 Dose Schedule 2006-01-08 00:00:00 Completed [facility] MMR 2006-01-08 00:00:00 Completed [facility] Pediarix (dtap/hep B/ipv) 2006-01-08 00:00:00 Completed [facility] Varicella (varivax)(chicken pox) 2006-01-08 00:00:00 Completed [facility] Pneumococcal 7 Conjugate, PCV7 (Prevnar7) 2006-01-08 00:00:00 Completed [facility] HIB 4 Dose Schedule 2006-01-08 00:00:00 Completed [facility] MMR 2006-01-08 00:00:00 Completed [facility] Pediarix (dtap/hep B/ipv) 2006-01-08 00:00:00 Completed [facility] Varicella (varivax)(chicken pox) 2006-01-08 00:00:00 Completed [facility] Pneumococcal 7 Conjugate, PCV7 (Prevnar7) 2006-01-08 00:00:00 Completed [facility] HIB 4 Dose Schedule 2006-01-08 00:00:00 Completed [facility] MMR 2006-01-08 00:00:00 Completed [facility] Pediarix (dtap/hep B/ipv) 2006-01-08 00:00:00 Completed [facility] Varicella (varivax)(chicken pox) 2006-01-08 00:00:00 Completed [facility] Pneumococcal 7 Conjugate, PCV7 (Prevnar7) 2006-01-08 00:00:00 Completed [facility] HIB 4 Dose Schedule 2006-01-08 00:00:00 Completed [facility] MMR 2006-01-08 00:00:00 Completed [facility] Pediarix (dtap/hep B/ipv) 2006-01-08 00:00:00 Completed [facility] Varicella (varivax)(chicken pox) 2006-01-08 00:00:00 Completed [facility] Pneumococcal 7 Conjugate, PCV7 (Prevnar7) 2006-01-08 00:00:00 Completed [facility] HIB 4 Dose Schedule 2006-01-08 00:00:00 Completed [facility] MMR 2006-01-08 00:00:00 Completed [facility] Pediarix (dtap/hep B/ipv) 2006-01-08 00:00:00 Completed [facility] Varicella (varivax)(chicken pox) 2006-01-08 00:00:00 Completed [facility] Pneumococcal 7 Conjugate, PCV7 (Prevnar7) 2006-01-08 00:00:00 Completed [facility] HIB 4 Dose Schedule 2006-01-08 00:00:00 Completed [facility] MMR 2006-01-08 00:00:00 Completed [facility] Pediarix (dtap/hep B/ipv) 2006-01-08 00:00:00 Completed [facility] Varicella (varivax)(chicken pox) 2006-01-08 00:00:00 Completed [facility] Pneumococcal 7 Conjugate, PCV7 (Prevnar7) 2006-01-08 00:00:00 Completed [facility] HIB 4 Dose Schedule 2006-01-08 00:00:00 Completed [facility] MMR 2006-01-08 00:00:00 Completed [facility] Pediarix (dtap/hep B/ipv) 2006-01-08 00:00:00 Completed [facility] Varicella (varivax)(chicken pox) 2006-01-08 00:00:00 Completed [facility] Pneumococcal 7 Conjugate, PCV7 (Prevnar7) 2006-01-08 00:00:00 Completed [facility] HIB 4 Dose Schedule 2006-01-08 00:00:00 Completed [facility] MMR 2006-01-08 00:00:00 Completed [facility] Pediarix (dtap/hep B/ipv) 2006-01-08 00:00:00 Completed [facility] Varicella (varivax)(chicken pox) 2006-01-08 00:00:00 Completed [facility] Pneumococcal 7 Conjugate, PCV7 (Prevnar7) 2006-01-08 00:00:00 Completed [facility] HIB 4 Dose Schedule 2006-01-08 00:00:00 Completed [facility] MMR 2006-01-08 00:00:00 Completed [facility] Pediarix (dtap/hep B/ipv) 2006-01-08 00:00:00 Completed [facility] Varicella (varivax)(chicken pox) 2006-01-08 00:00:00 Completed [facility] Pneumococcal 7 Conjugate, PCV7 (Prevnar7) 2006-01-08 00:00:00 Completed [facility] HIB 4 Dose Schedule 2006-01-08 00:00:00 Completed [facility] MMR 2006-01-08 00:00:00 Completed [facility] Pediarix (dtap/hep B/ipv) 2006-01-08 00:00:00 Completed [facility] Varicella (varivax)(chicken pox) 2006-01-08 00:00:00 Completed [facility] Pneumococcal 7 Conjugate, PCV7 (Prevnar7) 2006-01-08 00:00:00 Completed [facility] HIB 4 Dose Schedule 2006-01-08 00:00:00 Completed [facility] MMR 2006-01-08 00:00:00 Completed [facility] Pediarix (dtap/hep B/ipv) 2006-01-08 00:00:00 Completed [facility] Varicella (varivax)(chicken pox) 2006-01-08 00:00:00 Completed [facility] Pneumococcal 7 Conjugate, PCV7 (Prevnar7) 2006-01-08 00:00:00 Completed [facility] HIB 4 Dose Schedule 2006-01-08 00:00:00 Completed [facility] MMR 2006-01-08 00:00:00 Completed [facility] Pediarix (dtap/hep B/ipv) 2006-01-08 00:00:00 Completed [facility] Varicella (varivax)(chicken pox) 2006-01-08 00:00:00 Completed [facility] Pneumococcal 7 Conjugate, PCV7 (Prevnar7) 2006-01-08 00:00:00 Completed [facility] HIB 4 Dose Schedule 2006-01-08 00:00:00 Completed [facility] MMR 2006-01-08 00:00:00 Completed [facility] Pediarix (dtap/hep B/ipv) 2006-01-08 00:00:00 Completed [facility] Varicella (varivax)(chicken pox) 2006-01-08 00:00:00 Completed [facility] Pneumococcal 7 Conjugate, PCV7 (Prevnar7) 2006-01-08 00:00:00 Completed [facility] HIB 4 Dose Schedule 2006-01-08 00:00:00 Completed [facility] MMR 2006-01-08 00:00:00 Completed [facility] Pediarix (dtap/hep B/ipv) 2006-01-08 00:00:00 Completed [facility] Varicella (varivax)(chicken pox) 2006-01-08 00:00:00 Completed [facility] Pneumococcal 7 Conjugate, PCV7 (Prevnar7) 2006-01-08 00:00:00 Completed [facility] HIB 4 Dose Schedule 2006-01-08 00:00:00 Completed [facility] MMR 2006-01-08 00:00:00 Completed [facility] Pediarix (dtap/hep B/ipv) 2006-01-08 00:00:00 Completed [facility] Varicella (varivax)(chicken pox) 2006-01-08 00:00:00 Completed [facility] Pneumococcal 7 Conjugate, PCV7 (Prevnar7) 2006-01-08 00:00:00 Completed [facility] HIB 4 Dose Schedule 2006-01-08 00:00:00 Completed [facility] MMR 2006-01-08 00:00:00 Completed [facility] Pediarix (dtap/hep B/ipv) 2006-01-08 00:00:00 Completed [facility] Varicella (varivax)(chicken pox) 2006-01-08 00:00:00 Completed [facility] Pneumococcal 7 Conjugate, PCV7 (Prevnar7) 2006-01-08 00:00:00 Completed [facility] HIB 4 Dose Schedule 2006-01-08 00:00:00 Completed [facility] MMR 2006-01-08 00:00:00 Completed [facility] Pediarix (dtap/hep B/ipv) 2006-01-08 00:00:00 Completed [facility] Varicella (varivax)(chicken pox) 2006-01-08 00:00:00 Completed [facility] Pneumococcal 7 Conjugate, PCV7 (Prevnar7) 2006-01-08 00:00:00 Completed [facility] HIB 4 Dose Schedule 2006-01-08 00:00:00 Completed [facility] MMR 2006-01-08 00:00:00 Completed [facility] Pediarix (dtap/hep B/ipv) 2006-01-08 00:00:00 Completed [facility] Varicella (varivax)(chicken pox) 2006-01-08 00:00:00 Completed [facility] Pneumococcal 7 Conjugate, PCV7 (Prevnar7) 2006-01-08 00:00:00 Completed [facility] HIB 4 Dose Schedule 2006-01-08 00:00:00 Completed [facility] MMR 2006-01-08 00:00:00 Completed [facility] Pediarix (dtap/hep B/ipv) 2006-01-08 00:00:00 Completed [facility] Varicella (varivax)(chicken pox) 2006-01-08 00:00:00 Completed [facility] Pneumococcal 7 Conjugate, PCV7 (Prevnar7) 2006-01-08 00:00:00 Completed [facility] HIB 4 Dose Schedule 2006-01-08 00:00:00 Completed [facility] MMR 2006-01-08 00:00:00 Completed [facility] Pediarix (dtap/hep B/ipv) 2006-01-08 00:00:00 Completed [facility] Varicella (varivax)(chicken pox) 2006-01-08 00:00:00 Completed [facility] Pneumococcal 7 Conjugate, PCV7 (Prevnar7) 2006-01-08 00:00:00 Completed [facility] HIB 4 Dose Schedule 2006-01-08 00:00:00 Completed [facility] MMR 2006-01-08 00:00:00 Completed [facility] Pediarix (dtap/hep B/ipv) 2006-01-08 00:00:00 Completed [facility] Varicella (varivax)(chicken pox) 2006-01-08 00:00:00 Completed [facility] Pneumococcal 7 Conjugate, PCV7 (Prevnar7) 2006-01-08 00:00:00 Completed [facility] HIB 4 Dose Schedule 2006-01-08 00:00:00 Completed [facility] MMR 2006-01-08 00:00:00 Completed [facility] Pediarix (dtap/hep B/ipv) 2006-01-08 00:00:00 Completed [facility] Varicella (varivax)(chicken pox) 2006-01-08 00:00:00 Completed [facility] Pneumococcal 7 Conjugate, PCV7 (Prevnar7) 2006-01-08 00:00:00 Completed [facility] HIB 4 Dose Schedule 2006-01-08 00:00:00 Completed [facility] MMR 2006-01-08 00:00:00 Completed [facility] Pediarix (dtap/hep B/ipv) 2006-01-08 00:00:00 Completed [facility] Varicella (varivax)(chicken pox) 2006-01-08 00:00:00 Completed [facility] Pneumococcal 7 Conjugate, PCV7 (Prevnar7) 2006-01-08 00:00:00 Completed [facility] HIB 4 Dose Schedule 2006-01-08 00:00:00 Completed [facility] MMR 2006-01-08 00:00:00 Completed [facility] Pediarix (dtap/hep B/ipv) 2006-01-08 00:00:00 Completed [facility] Varicella (varivax)(chicken pox) 2006-01-08 00:00:00 Completed [facility] Pneumococcal 7 Conjugate, PCV7 (Prevnar7) 2006-01-08 00:00:00 Completed [facility] HIB 4 Dose Schedule 2006-01-08 00:00:00 Completed MMR 2006-01-08 00:00:00 Completed Pediarix (dtap/hep B/ipv) 2006-01-08 00:00:00 Completed Varicella (varivax)(chicken pox) 2006-01-08 00:00:00 Completed Pneumococcal 7 Conjugate, PCV7 (Prevnar7) 2006-01-08 00:00:00 Completed HIB 4 Dose Schedule 2005-09-12 00:00:00 Completed [facility] Pediarix (dtap/hep B/ipv) 2005-09-12 00:00:00 Completed [facility] Pneumococcal 7 Conjugate, PCV7 (Prevnar7) 2005-09-12 00:00:00 Completed [facility] HIB 4 Dose Schedule 2005-09-12 00:00:00 Completed [facility] Pediarix (dtap/hep B/ipv) 2005-09-12 00:00:00 Completed [facility] Pneumococcal 7 Conjugate, PCV7 (Prevnar7) 2005-09-12 00:00:00 Completed [facility] HIB 4 Dose Schedule 2005-09-12 00:00:00 Completed [facility] Pediarix (dtap/hep B/ipv) 2005-09-12 00:00:00 Completed [facility] Pneumococcal 7 Conjugate, PCV7 (Prevnar7) 2005-09-12 00:00:00 Completed [facility] HIB 4 Dose Schedule 2005-09-12 00:00:00 Completed [facility] Pediarix (dtap/hep B/ipv) 2005-09-12 00:00:00 Completed [facility] Pneumococcal 7 Conjugate, PCV7 (Prevnar7) 2005-09-12 00:00:00 Completed [facility] HIB 4 Dose Schedule 2005-09-12 00:00:00 Completed [facility] Pediarix (dtap/hep B/ipv) 2005-09-12 00:00:00 Completed [facility] Pneumococcal 7 Conjugate, PCV7 (Prevnar7) 2005-09-12 00:00:00 Completed [facility] HIB 4 Dose Schedule 2005-09-12 00:00:00 Completed [facility] Pediarix (dtap/hep B/ipv) 2005-09-12 00:00:00 Completed [facility] Pneumococcal 7 Conjugate, PCV7 (Prevnar7) 2005-09-12 00:00:00 Completed [facility] HIB 4 Dose Schedule 2005-09-12 00:00:00 Completed [facility] Pediarix (dtap/hep B/ipv) 2005-09-12 00:00:00 Completed [facility] Pneumococcal 7 Conjugate, PCV7 (Prevnar7) 2005-09-12 00:00:00 Completed [facility] HIB 4 Dose Schedule 2005-09-12 00:00:00 Completed [facility] Pediarix (dtap/hep B/ipv) 2005-09-12 00:00:00 Completed [facility] Pneumococcal 7 Conjugate, PCV7 (Prevnar7) 2005-09-12 00:00:00 Completed [facility] HIB 4 Dose Schedule 2005-09-12 00:00:00 Completed [facility] Pediarix (dtap/hep B/ipv) 2005-09-12 00:00:00 Completed [facility] Pneumococcal 7 Conjugate, PCV7 (Prevnar7) 2005-09-12 00:00:00 Completed [facility] HIB 4 Dose Schedule 2005-09-12 00:00:00 Completed [facility] Pediarix (dtap/hep B/ipv) 2005-09-12 00:00:00 Completed [facility] Pneumococcal 7 Conjugate, PCV7 (Prevnar7) 2005-09-12 00:00:00 Completed [facility] HIB 4 Dose Schedule 2005-09-12 00:00:00 Completed [facility] Pediarix (dtap/hep B/ipv) 2005-09-12 00:00:00 Completed [facility] Pneumococcal 7 Conjugate, PCV7 (Prevnar7) 2005-09-12 00:00:00 Completed [facility] HIB 4 Dose Schedule 2005-09-12 00:00:00 Completed [facility] Pediarix (dtap/hep B/ipv) 2005-09-12 00:00:00 Completed [facility] Pneumococcal 7 Conjugate, PCV7 (Prevnar7) 2005-09-12 00:00:00 Completed [facility] HIB 4 Dose Schedule 2005-09-12 00:00:00 Completed [facility] Pediarix (dtap/hep B/ipv) 2005-09-12 00:00:00 Completed [facility] Pneumococcal 7 Conjugate, PCV7 (Prevnar7) 2005-09-12 00:00:00 Completed [facility] HIB 4 Dose Schedule 2005-09-12 00:00:00 Completed [facility] Pediarix (dtap/hep B/ipv) 2005-09-12 00:00:00 Completed [facility] Pneumococcal 7 Conjugate, PCV7 (Prevnar7) 2005-09-12 00:00:00 Completed [facility] HIB 4 Dose Schedule 2005-09-12 00:00:00 Completed [facility] Pediarix (dtap/hep B/ipv) 2005-09-12 00:00:00 Completed [facility] Pneumococcal 7 Conjugate, PCV7 (Prevnar7) 2005-09-12 00:00:00 Completed [facility] HIB 4 Dose Schedule 2005-09-12 00:00:00 Completed [facility] Pediarix (dtap/hep B/ipv) 2005-09-12 00:00:00 Completed [facility] Pneumococcal 7 Conjugate, PCV7 (Prevnar7) 2005-09-12 00:00:00 Completed [facility] HIB 4 Dose Schedule 2005-09-12 00:00:00 Completed [facility] Pediarix (dtap/hep B/ipv) 2005-09-12 00:00:00 Completed [facility] Pneumococcal 7 Conjugate, PCV7 (Prevnar7) 2005-09-12 00:00:00 Completed [facility] HIB 4 Dose Schedule 2005-09-12 00:00:00 Completed [facility] Pediarix (dtap/hep B/ipv) 2005-09-12 00:00:00 Completed [facility] Pneumococcal 7 Conjugate, PCV7 (Prevnar7) 2005-09-12 00:00:00 Completed [facility] HIB 4 Dose Schedule 2005-09-12 00:00:00 Completed [facility] Pediarix (dtap/hep B/ipv) 2005-09-12 00:00:00 Completed [facility] Pneumococcal 7 Conjugate, PCV7 (Prevnar7) 2005-09-12 00:00:00 Completed [facility] HIB 4 Dose Schedule 2005-09-12 00:00:00 Completed [facility] Pediarix (dtap/hep B/ipv) 2005-09-12 00:00:00 Completed [facility] Pneumococcal 7 Conjugate, PCV7 (Prevnar7) 2005-09-12 00:00:00 Completed [facility] HIB 4 Dose Schedule 2005-09-12 00:00:00 Completed [facility] Pediarix (dtap/hep B/ipv) 2005-09-12 00:00:00 Completed [facility] Pneumococcal 7 Conjugate, PCV7 (Prevnar7) 2005-09-12 00:00:00 Completed [facility] HIB 4 Dose Schedule 2005-09-12 00:00:00 Completed [facility] Pediarix (dtap/hep B/ipv) 2005-09-12 00:00:00 Completed [facility] Pneumococcal 7 Conjugate, PCV7 (Prevnar7) 2005-09-12 00:00:00 Completed [facility] HIB 4 Dose Schedule 2005-09-12 00:00:00 Completed [facility] Pediarix (dtap/hep B/ipv) 2005-09-12 00:00:00 Completed [facility] Pneumococcal 7 Conjugate, PCV7 (Prevnar7) 2005-09-12 00:00:00 Completed [facility] HIB 4 Dose Schedule 2005-09-12 00:00:00 Completed [facility] Pediarix (dtap/hep B/ipv) 2005-09-12 00:00:00 Completed [facility] Pneumococcal 7 Conjugate, PCV7 (Prevnar7) 2005-09-12 00:00:00 Completed [facility] HIB 4 Dose Schedule 2005-09-12 00:00:00 Completed [facility] Pediarix (dtap/hep B/ipv) 2005-09-12 00:00:00 Completed [facility] Pneumococcal 7 Conjugate, PCV7 (Prevnar7) 2005-09-12 00:00:00 Completed [facility] HIB 4 Dose Schedule 2005-09-12 00:00:00 Completed [facility] Pediarix (dtap/hep B/ipv) 2005-09-12 00:00:00 Completed [facility] Pneumococcal 7 Conjugate, PCV7 (Prevnar7) 2005-09-12 00:00:00 Completed [facility] HIB 4 Dose Schedule 2005-09-12 00:00:00 Completed [facility] Pediarix (dtap/hep B/ipv) 2005-09-12 00:00:00 Completed [facility] Pneumococcal 7 Conjugate, PCV7 (Prevnar7) 2005-09-12 00:00:00 Completed [facility] HIB 4 Dose Schedule 2005-09-12 00:00:00 Completed [facility] Pediarix (dtap/hep B/ipv) 2005-09-12 00:00:00 Completed [facility] Pneumococcal 7 Conjugate, PCV7 (Prevnar7) 2005-09-12 00:00:00 Completed [facility] HIB 4 Dose Schedule 2005-09-12 00:00:00 Completed [facility] Pediarix (dtap/hep B/ipv) 2005-09-12 00:00:00 Completed [facility] Pneumococcal 7 Conjugate, PCV7 (Prevnar7) 2005-09-12 00:00:00 Completed [facility] HIB 4 Dose Schedule 2005-09-12 00:00:00 Completed [facility] Pediarix (dtap/hep B/ipv) 2005-09-12 00:00:00 Completed [facility] Pneumococcal 7 Conjugate, PCV7 (Prevnar7) 2005-09-12 00:00:00 Completed [facility] HIB 4 Dose Schedule 2005-09-12 00:00:00 Completed [facility] Pediarix (dtap/hep B/ipv) 2005-09-12 00:00:00 Completed [facility] Pneumococcal 7 Conjugate, PCV7 (Prevnar7) 2005-09-12 00:00:00 Completed [facility] HIB 4 Dose Schedule 2005-09-12 00:00:00 Completed Pediarix (dtap/hep B/ipv) 2005-09-12 00:00:00 Completed Pneumococcal 7 Conjugate, PCV7 (Prevnar7) 2005-09-12 00:00:00 Completed HIB 4 Dose Schedule 2005-05-29 00:00:00 Completed [facility] Pediarix (dtap/hep B/ipv) 2005-05-29 00:00:00 Completed [facility] HIB 4 Dose Schedule 2005-05-29 00:00:00 Completed [facility] Pediarix (dtap/hep B/ipv) 2005-05-29 00:00:00 Completed [facility] HIB 4 Dose Schedule 2005-05-29 00:00:00 Completed [facility] Pediarix (dtap/hep B/ipv) 2005-05-29 00:00:00 Completed [facility] HIB 4 Dose Schedule 2005-05-29 00:00:00 Completed [facility] Pediarix (dtap/hep B/ipv) 2005-05-29 00:00:00 Completed [facility] HIB 4 Dose Schedule 2005-05-29 00:00:00 Completed [facility] Pediarix (dtap/hep B/ipv) 2005-05-29 00:00:00 Completed [facility] HIB 4 Dose Schedule 2005-05-29 00:00:00 Completed [facility] Pediarix (dtap/hep B/ipv) 2005-05-29 00:00:00 Completed [facility] HIB 4 Dose Schedule 2005-05-29 00:00:00 Completed [facility] Pediarix (dtap/hep B/ipv) 2005-05-29 00:00:00 Completed [facility] HIB 4 Dose Schedule 2005-05-29 00:00:00 Completed [facility] Pediarix (dtap/hep B/ipv) 2005-05-29 00:00:00 Completed [facility] HIB 4 Dose Schedule 2005-05-29 00:00:00 Completed [facility] Pediarix (dtap/hep B/ipv) 2005-05-29 00:00:00 Completed [facility] HIB 4 Dose Schedule 2005-05-29 00:00:00 Completed [facility] Pediarix (dtap/hep B/ipv) 2005-05-29 00:00:00 Completed [facility] HIB 4 Dose Schedule 2005-05-29 00:00:00 Completed [facility] Pediarix (dtap/hep B/ipv) 2005-05-29 00:00:00 Completed [facility] HIB 4 Dose Schedule 2005-05-29 00:00:00 Completed [facility] Pediarix (dtap/hep B/ipv) 2005-05-29 00:00:00 Completed [facility] HIB 4 Dose Schedule 2005-05-29 00:00:00 Completed [facility] Pediarix (dtap/hep B/ipv) 2005-05-29 00:00:00 Completed [facility] HIB 4 Dose Schedule 2005-05-29 00:00:00 Completed [facility] Pediarix (dtap/hep B/ipv) 2005-05-29 00:00:00 Completed [facility] HIB 4 Dose Schedule 2005-05-29 00:00:00 Completed [facility] Pediarix (dtap/hep B/ipv) 2005-05-29 00:00:00 Completed [facility] HIB 4 Dose Schedule 2005-05-29 00:00:00 Completed [facility] Pediarix (dtap/hep B/ipv) 2005-05-29 00:00:00 Completed [facility] HIB 4 Dose Schedule 2005-05-29 00:00:00 Completed [facility] Pediarix (dtap/hep B/ipv) 2005-05-29 00:00:00 Completed [facility] HIB 4 Dose Schedule 2005-05-29 00:00:00 Completed [facility] Pediarix (dtap/hep B/ipv) 2005-05-29 00:00:00 Completed [facility] HIB 4 Dose Schedule 2005-05-29 00:00:00 Completed [facility] Pediarix (dtap/hep B/ipv) 2005-05-29 00:00:00 Completed [facility] HIB 4 Dose Schedule 2005-05-29 00:00:00 Completed [facility] Pediarix (dtap/hep B/ipv) 2005-05-29 00:00:00 Completed [facility] HIB 4 Dose Schedule 2005-05-29 00:00:00 Completed [facility] Pediarix (dtap/hep B/ipv) 2005-05-29 00:00:00 Completed [facility] HIB 4 Dose Schedule 2005-05-29 00:00:00 Completed [facility] Pediarix (dtap/hep B/ipv) 2005-05-29 00:00:00 Completed [facility] HIB 4 Dose Schedule 2005-05-29 00:00:00 Completed [facility] Pediarix (dtap/hep B/ipv) 2005-05-29 00:00:00 Completed [facility] HIB 4 Dose Schedule 2005-05-29 00:00:00 Completed [facility] Pediarix (dtap/hep B/ipv) 2005-05-29 00:00:00 Completed [facility] HIB 4 Dose Schedule 2005-05-29 00:00:00 Completed [facility] Pediarix (dtap/hep B/ipv) 2005-05-29 00:00:00 Completed [facility] HIB 4 Dose Schedule 2005-05-29 00:00:00 Completed [facility] Pediarix (dtap/hep B/ipv) 2005-05-29 00:00:00 Completed [facility] HIB 4 Dose Schedule 2005-05-29 00:00:00 Completed [facility] Pediarix (dtap/hep B/ipv) 2005-05-29 00:00:00 Completed [facility] HIB 4 Dose Schedule 2005-05-29 00:00:00 Completed [facility] Pediarix (dtap/hep B/ipv) 2005-05-29 00:00:00 Completed [facility] HIB 4 Dose Schedule 2005-05-29 00:00:00 Completed [facility] Pediarix (dtap/hep B/ipv) 2005-05-29 00:00:00 Completed [facility] HIB 4 Dose Schedule 2005-05-29 00:00:00 Completed [facility] Pediarix (dtap/hep B/ipv) 2005-05-29 00:00:00 Completed [facility] HIB 4 Dose Schedule 2005-05-29 00:00:00 Completed [facility] Pediarix (dtap/hep B/ipv) 2005-05-29 00:00:00 Completed [facility] HIB 4 Dose Schedule 2005-05-29 00:00:00 Completed Pediarix (dtap/hep B/ipv) 2005-05-29 00:00:00 Completed Hep B, Adol or Pedi Dosage 2004 00:00:00 Completed [facility] Hep B, Adol or Pedi Dosage 2004 00:00:00 Completed [facility] Hep B, Adol or Pedi Dosage 2004 00:00:00 Completed [facility] Hep B, Adol or Pedi Dosage 2004 00:00:00 Completed [facility] Hep B, Adol or Pedi Dosage 2004 00:00:00 Completed [facility] Hep B, Adol or Pedi Dosage 2004 00:00:00 Completed [facility] Hep B, Adol or Pedi Dosage 2004 00:00:00 Completed [facility] Hep B, Adol or Pedi Dosage 2004 00:00:00 Completed [facility] Hep B, Adol or Pedi Dosage 2004 00:00:00 Completed [facility] Hep B, Adol or Pedi Dosage 2004 00:00:00 Completed [facility] Hep B, Adol or Pedi Dosage 2004 00:00:00 Completed [facility] Hep B, Adol or Pedi Dosage 2004 00:00:00 Completed [facility] Hep B, Adol or Pedi Dosage 2004 00:00:00 Completed [facility] Hep B, Adol or Pedi Dosage 2004 00:00:00 Completed [facility] Hep B, Adol or Pedi Dosage 2004 00:00:00 Completed [facility] Hep B, Adol or Pedi Dosage 2004 00:00:00 Completed [facility] Hep B, Adol or Pedi Dosage 2004 00:00:00 Completed [facility] Hep B, Adol or Pedi Dosage 2004 00:00:00 Completed [facility] Hep B, Adol or Pedi Dosage 2004 00:00:00 Completed [facility] Hep B, Adol or Pedi Dosage 2004 00:00:00 Completed [facility] Hep B, Adol or Pedi Dosage 2004 00:00:00 Completed [facility] Hep B, Adol or Pedi Dosage 2004 00:00:00 Completed [facility] Hep B, Adol or Pedi Dosage 2004 00:00:00 Completed [facility] Hep B, Adol or Pedi Dosage 2004 00:00:00 Completed [facility] Hep B, Adol or Pedi Dosage 2004 00:00:00 Completed [facility] Hep B, Adol or Pedi Dosage 2004 00:00:00 Completed [facility] Hep B, Adol or Pedi Dosage 2004 00:00:00 Completed [facility] Hep B, Adol or Pedi Dosage 2004 00:00:00 Completed [facility] Hep B, Adol or Pedi Dosage 2004 00:00:00 Completed [facility] Hep B, Adol or Pedi Dosage 2004 00:00:00 Completed [facility] Hep B, Adol or Pedi Dosage 2004 00:00:00 Completed [facility] Hep B, Adol or Pedi Dosage 2004 00:00:00 Completed DTAP Unknown Completed [facility] HIB 4 Dose Schedule Unknown Completed [facility] HEPATITIS A Unknown Completed [facility] Hep B, Adol or Pedi Dosage Unknown Completed [facility] Influenza Virus Vaccine Unknown Completed [facility] MMR Unknown Completed [facility] Pediarix (dtap/hep B/ipv) Unknown Completed [facility] Varicella (varivax)(chicken pox) Unknown Completed [facility] Pneumococcal 7 Conjugate, PCV7 (Prevnar7) Unknown Completed [facility] Polio (IPV/OPV) Unknown Completed [facility] TDAP Unknown Completed [facility] Meningococcal Polysaccharide (groups A, C, Y and W-135) conjugate vaccine (MCV4P) Unknown Completed [facility] Influenza Virus Vaccine Quad .5 mL IM 6+ MO (FLUZONE/FLULAVAL/FL UARIX) Unknown Completed [facility] Meningococcal B, OMV Unknown Completed [facility] HPV9 Unknown Completed [facility] Influenza Virus Vaccine Quad IM, Preserv and ABX Free 6 MO-64 YRS (FLUCELVAX) Unknown Completed [facility] Flu Trivalent Unknown Completed [facility] DTAP Unknown Completed [facility] HIB 4 Dose Schedule Unknown Completed [facility] HEPATITIS A Unknown Completed [facility] Hep B, Adol or Pedi Dosage Unknown Completed [facility] Influenza Virus Vaccine Unknown Completed [facility] MMR Unknown Completed [facility] Pediarix (dtap/hep B/ipv) Unknown Completed [facility] Varicella (varivax)(chicken pox) Unknown Completed [facility] Pneumococcal 7 Conjugate, PCV7 (Prevnar7) Unknown Completed [facility] Polio (IPV/OPV) Unknown Completed [facility] TDAP Unknown Completed [facility] Meningococcal Polysaccharide (groups A, C, Y and W-135) conjugate vaccine (MCV4P) Unknown Completed [facility] Influenza Virus Vaccine Quad .5 mL IM 6+ MO (FLUZONE/FLULAVAL/FL UARIX) Unknown Completed [facility] Meningococcal B, OMV Unknown Completed [facility] HPV9 Unknown Completed [facility] Influenza Virus Vaccine Quad IM, Preserv and ABX Free 6 MO-64 YRS (FLUCELVAX) Unknown Completed [facility] Flu Trivalent Unknown Completed [facility] DTAP Unknown Completed [facility] HIB 4 Dose Schedule Unknown Completed [facility] HEPATITIS A Unknown Completed [facility] Hep B, Adol or Pedi Dosage Unknown Completed [facility] Influenza Virus Vaccine Unknown Completed [facility] MMR Unknown Completed [facility] Pediarix (dtap/hep B/ipv) Unknown Completed [facility] Varicella (varivax)(chicken pox) Unknown Completed [facility] Pneumococcal 7 Conjugate, PCV7 (Prevnar7) Unknown Completed [facility] Polio (IPV/OPV) Unknown Completed [facility] TDAP Unknown Completed [facility] Meningococcal Polysaccharide (groups A, C, Y and W-135) conjugate vaccine (MCV4P) Unknown Completed [facility] Influenza Virus Vaccine Quad .5 mL IM 6+ MO (FLUZONE/FLULAVAL/FL UARIX) Unknown Completed [facility] Meningococcal B, OMV Unknown Completed [facility] HPV9 Unknown Completed [facility] Influenza Virus Vaccine Quad IM, Preserv and ABX Free 6 MO-64 YRS (FLUCELVAX) Unknown Completed [facility] Flu Trivalent Unknown Completed [facility] Pneumococcal 7 Conjugate, PCV7 (Prevnar7) Unknown Completed [facility] Polio (IPV/OPV) Unknown Completed [facility] TDAP Unknown Completed [facility] Meningococcal Polysaccharide (groups A, C, Y and W-135) conjugate vaccine (MCV4P) Unknown Completed [facility] Influenza Virus Vaccine Quad .5 mL IM 6+ MO (FLUZONE/FLULAVAL/FL UARIX) Unknown Completed [facility] Meningococcal B, OMV Unknown Completed [facility] HPV9 Unknown Completed [facility] Influenza Virus Vaccine Quad IM, Preserv and ABX Free 6 MO-64 YRS (FLUCELVAX) Unknown Completed [facility] Flu Trivalent Unknown Completed [facility] DTAP Unknown Completed [facility] HIB 4 Dose Schedule Unknown Completed [facility] HEPATITIS A Unknown Completed [facility] Hep B, Adol or Pedi Dosage Unknown Completed [facility] Influenza Virus Vaccine Unknown Completed [facility] MMR Unknown Completed [facility] Pediarix (dtap/hep B/ipv) Unknown Completed [facility] Varicella (varivax)(chicken pox) Unknown Completed [facility] Pneumococcal 7 Conjugate, PCV7 (Prevnar7) Unknown Completed [facility] Polio (IPV/OPV) Unknown Completed [facility] TDAP Unknown Completed [facility] Meningococcal Polysaccharide (groups A, C, Y and W-135) conjugate vaccine (MCV4P) Unknown Completed [facility] Influenza Virus Vaccine Quad .5 mL IM 6+ MO (FLUZONE/FLULAVAL/FL UARIX) Unknown Completed [facility] Meningococcal B, OMV Unknown Completed [facility] HPV9 Unknown Completed [facility] Influenza Virus Vaccine Quad IM, Preserv and ABX Free 6 MO-64 YRS (FLUCELVAX) Unknown Completed [facility] Flu Trivalent Unknown Completed [facility] DTAP Unknown Completed [facility] HIB 4 Dose Schedule Unknown Completed [facility] HEPATITIS A Unknown Completed [facility] Hep B, Adol or Pedi Dosage Unknown Completed [facility] Influenza Virus Vaccine Unknown Completed [facility] MMR Unknown Completed [facility] Pediarix (dtap/hep B/ipv) Unknown Completed [facility] Varicella (varivax)(chicken pox) Unknown Completed [facility] Pneumococcal 7 Conjugate, PCV7 (Prevnar7) Unknown Completed [facility] Polio (IPV/OPV) Unknown Completed [facility] TDAP Unknown Completed [facility] Meningococcal Polysaccharide (groups A, C, Y and W-135) conjugate vaccine (MCV4P) Unknown Completed [facility] Influenza Virus Vaccine Quad .5 mL IM 6+ MO (FLUZONE/FLULAVAL/FL UARIX) Unknown Completed [facility] Meningococcal B, OMV Unknown Completed [facility] Flu Trivalent Unknown [facility] Unknown Completed [facility] HIB 4 Dose Schedule Unknown Completed [facility] HEPATITIS A Unknown Completed [facility] Hep B, Adol or Pedi Dosage Unknown Completed [facility] Influenza Virus Vaccine Unknown Completed [facility] MMR Unknown Completed [facility] Pediarix (dtap/hep B/ipv) Unknown Completed [facility] Varicella (varivax)(chicken pox) Unknown Completed [facility] Pneumococcal 7 Conjugate, PCV7 (Prevnar7) Unknown Completed [facility] Polio (IPV/OPV) Unknown Completed [facility] TDAP Unknown Completed [facility] Meningococcal Polysaccharide (groups A, C, Y and W-135) conjugate vaccine (MCV4P) Unknown Completed [facility] Influenza Virus Vaccine Quad .5 mL IM 6+ MO (FLUZONE/FLULAVAL/FL UARIX) Unknown Completed [facility] Meningococcal B, OMV Unknown Completed [facility] Flu Trivalent Unknown [facility] DTAP Unknown Completed [facility] HIB 4 Dose Schedule Unknown Completed [facility] HEPATITIS A Unknown Completed [facility] Hep B, Adol or Pedi Dosage Unknown Completed [facility] Influenza Virus Vaccine Unknown Completed [facility] MMR Unknown Completed [facility] Pediarix (dtap/hep B/ipv) Unknown Completed [facility] Varicella (varivax)(chicken pox) Unknown Completed [facility] Pneumococcal 7 Conjugate, PCV7 (Prevnar7) Unknown Completed [facility] Polio (IPV/OPV) Unknown Completed [facility] TDAP Unknown Completed [facility] Meningococcal Polysaccharide (groups A, C, Y and W-135) conjugate vaccine (MCV4P) Unknown Completed [facility] Influenza Virus Vaccine Quad .5 mL IM 6+ MO (FLUZONE/FLULAVAL/FL UARIX) Unknown Completed [facility] Meningococcal B, OMV Unknown Completed [facility] Flu Trivalent Unknown [facility] DTAP Unknown Completed [facility] HIB 4 Dose Schedule Unknown Completed [facility] HEPATITIS A Unknown Com[facility] Hep B, Adol or Pedi Dosage Unknown Completed [facility] Influenza Virus Vaccine Unknown Completed [facility] MMR Unknown Completed [facility] Pediarix (dtap/hep B/ipv) Unknown Completed [facility] Varicella (varivax)(chicken pox) Unknown Completed [facility] Pneumococcal 7 Conjugate, PCV7 (Prevnar7) Unknown Completed [facility] Polio (IPV/OPV) Unknown Completed [facility] TDAP Unknown Completed [facility] Meningococcal Polysaccharide (groups A, C, Y and W-135) conjugate vaccine (MCV4P) Unknown Completed [facility] Influenza Virus Vaccine Quad .5 mL IM 6+ MO (FLUZONE/FLULAVAL/FL UARIX) Unknown Completed [facility] Flu Trivalent Unknown Completed [facility] HEPATITIS A Unknown Completed [facility] MMR Unknown Completed [facility] Varicella (varivax)(chicken pox) Unknown Completed [facility] DTAP Unknown Completed [facility] Hep B, Adol or Pedi Dosage Unknown Completed [facility] Pneumococcal 7 Conjugate, PCV7 (Prevnar7) Unknown Completed [facility] Polio (IPV/OPV) Unknown Completed [facility] TDAP Unknown Completed [facility] Meningococcal Polysaccharide (groups A, C, Y and W-135) conjugate vaccine (MCV4P) Unknown Completed [facility] Influenza Virus Vaccine Quad .5 mL IM 6+ MO (FLUZONE/FLULAVAL/FL UARIX) Unknown Completed [facility] Meningococcal B, OMV Unknown Completed [facility] HPV9 Unknown Completed [facility] Influenza Virus Vaccine Quad IM, Preserv and ABX Free 6 MO-64 YRS (FLUCELVAX) Unknown Completed [facility] Flu Trivalent Unknown Completed [facility] HIB 4 Dose Schedule Unknown Completed [facility] Influenza Virus Vaccine Unknown Completed [facility] Pediarix (dtap/hep B/ipv) Unknown Completed [facility] HEPATITIS A Unknown Completed [facility] MMR Unknown Completed [facility] Varicella (varivax)(chicken pox) Unknown Completed [facility] DTAP Unknown Completed [facility] HIB 4 Dose Schedule Unknown Completed [facility] HEPATITIS A Unknown Completed [facility] Hep B, Adol or Pedi Dosage Unknown Completed [facility] Influenza Virus Vaccine Unknown Completed [facility] MMR Unknown Completed [facility] Pediarix (dtap/hep B/ipv) Unknown Completed [facility] Varicella (varivax)(chicken pox) Unknown Completed [facility] Pneumococcal 7 Conjugate, PCV7 (Prevnar7) Unknown Completed [facility] Polio (IPV/OPV) Unknown Completed [facility] TDAP Unknown Completed [facility] Meningococcal Polysaccharide (groups A, C, Y and W-135) conjugate vaccine (MCV4P) Unknown Completed [facility] Influenza Virus Vaccine Quad .5 mL IM 6+ MO (FLUZONE/FLULAVAL/FL UARIX) Unknown Completed [facility] Meningococcal B, OMV Unknown Completed [facility] HPV9 Unknown Completed [facility] Influenza Virus Vaccine Quad IM, Preserv and ABX Free 6 MO-64 YRS (FLUCELVAX) Unknown Completed [facility] Flu Trivalent Unknown Completed [facility] DTAP Unknown Completed [facility] HIB 4 Dose Schedule Unknown Completed [facility] Hep B, Adol or Pedi Dosage Unknown Completed [facility] Influenza Virus Vaccine Unknown Completed [facility] Pediarix (dtap/hep B/ipv) Unknown Completed [facility] DTAP Unknown Completed [facility] HIB 4 Dose Schedule Unknown Completed [facility] Hep B, Adol or Pedi Dosage Unknown Completed [facility] Influenza Virus Vaccine Unknown Completed [facility] Pediarix (dtap/hep B/ipv) Unknown Completed [facility] Pneumococcal 7 Conjugate, PCV7 (Prevnar7) Unknown Completed [facility] Polio (IPV/OPV) Unknown Completed [facility] TDAP Unknown Completed [facility] Meningococcal Polysaccharide (groups A, C, Y and W-135) conjugate vaccine (MCV4P) Unknown Completed [facility] Influenza Virus Vaccine Quad .5 mL IM 6+ MO (FLUZONE/FLULAVAL/FL UARIX) Unknown Completed [facility] Meningococcal B, OMV Unknown Completed [facility] HPV9 Unknown Completed [facility] Influenza Virus Vaccine Quad IM, Preserv and ABX Free 6 MO-64 YRS (FLUCELVAX) Unknown Completed [facility] Flu Trivalent Unknown Completed [facility] HEPATITIS A Unknown Completed [facility] MMR Unknown Completed [facility] Varicella (varivax)(chicken pox) Unknown Completed [facility] DTAP Unknown Completed [facility] HIB 4 Dose Schedule Unknown Completed [facility] HEPATITIS A Unknown Completed [facility] Hep B, Adol or Pedi Dosage Unknown Completed [facility] Influenza Virus Vaccine Unknown Completed [facility] MMR Unknown Completed [facility] Pediarix (dtap/hep B/ipv) Unknown Completed [facility] Varicella (varivax)(chicken pox) Unknown Completed [facility] Pneumococcal 7 Conjugate, PCV7 (Prevnar7) Unknown Completed [facility] Polio (IPV/OPV) Unknown Completed [facility] TDAP Unknown Completed [facility] Meningococcal Polysaccharide (groups A, C, Y and W-135) conjugate vaccine (MCV4P) Unknown Completed [facility] Influenza Virus Vaccine Quad .5 mL IM 6+ MO (FLUZONE/FLULAVAL/FL UARIX) Unknown Completed [facility] Meningococcal B, OMV Unknown Completed [facility] Flu Trivalent Unknown Completed [facility] DTAP Unknown Completed [facility] HIB 4 Dose Schedule Unknown Completed [facility] HEPATITIS A Unknown Completed [facility] Hep B, Adol or Pedi Dosage Unknown Completed [facility] Influenza Virus Vaccine Unknown Completed [facility] MMR Unknown Completed [facility] Pediarix (dtap/hep B/ipv) Unknown Completed [facility] Varicella (varivax)(chicken pox) Unknown Completed [facility] Pneumococcal 7 Conjugate, PCV7 (Prevnar7) Unknown Completed [facility] Polio (IPV/OPV) Unknown Completed [facility] TDAP Unknown Completed [facility] Meningococcal Polysaccharide (groups A, C, Y and W-135) conjugate vaccine (MCV4P) Unknown Completed [facility] Influenza Virus Vaccine Quad .5 mL IM 6+ MO (FLUZONE/FLULAVAL/FL UARIX) Unknown Completed [facility] Meningococcal B, OMV Unknown Completed [facility] Flu Trivalent Unknown Completed [facility] DTAP Unknown Completed [facility] HIB 4 Dose Schedule Unknown Completed [facility] HEPATITIS A Unknown Completed [facility] Hep B, Adol or Pedi Dosage Unknown Completed [facility] Influenza Virus Vaccine Unknown Completed [facility] MMR Unknown Completed [facility] Pediarix (dtap/hep B/ipv) Unknown Completed [facility] Varicella (varivax)(chicken pox) Unknown Completed [facility] Pneumococcal 7 Conjugate, PCV7 (Prevnar7) Unknown Completed [facility] Polio (IPV/OPV) Unknown Completed [facility] TDAP Unknown Completed [facility] Meningococcal Polysaccharide (groups A, C, Y and W-135) conjugate vaccine (MCV4P) Unknown Completed [facility] Influenza Virus Vaccine Quad .5 mL IM 6+ MO (FLUZONE/FLULAVAL/FL UARIX) Unknown Completed [facility] Meningococcal B, OMV Unknown Completed [facility] HPV9 Unknown Completed [facility] Influenza Virus Vaccine Quad IM, Preserv and ABX Free 6 MO-64 YRS (FLUCELVAX) Unknown Completed [facility] Flu Trivalent Unknown [facility] DTAP Unknown Completed [facility] HIB 4 Dose Schedule Unknown Completed [facility] HEPATITIS A Unknown Completed [facility] Hep B, Adol or Pedi Dosage Unknown Completed [facility] Influenza Virus Vaccine Unknown Completed [facility] MMR Unknown Completed [facility] Pediarix (dtap/hep B/ipv) Unknown Completed [facility] Varicella (varivax)(chicken pox) Unknown Completed [facility] Pneumococcal 7 Conjugate, PCV7 (Prevnar7) Unknown Completed [facility] Influenza Virus Vaccine Quad IM 3+ YRS Unknown Completed [facility] Polio (IPV/OPV) Unknown Completed [facility] TDAP Unknown Completed [facility] Meningococcal Polysaccharide (groups A, C, Y and W-135) conjugate vaccine (MCV4P) Unknown Completed [facility] Meningococcal B, OMV Unknown Completed [facility] HPV9 Unknown Completed [facility] Influenza Virus Vaccine Quad IM, Preserv and ABX Free 6 MO-64 YRS (FLUCELVAX) Unknown Completed [facility] Flu Trivalent Unknown [facility] DTAP Unknown Completed [facility] HIB 4 Dose Schedule Unknown Completed [facility] HEPATITIS A Unknown Completed [facility] Hep B, Adol or Pedi Dosage Unknown Completed [facility] Influenza Virus Vaccine Unknown Completed [facility] MMR Unknown Completed [facility] Pediarix (dtap/hep B/ipv) Unknown Completed [facility] Varicella (varivax)(chicken pox) Unknown Completed [facility] Pneumococcal 7 Conjugate, PCV7 (Prevnar7) Unknown Completed [facility] Influenza Virus Vaccine Quad IM 3+ YRS Unknown Completed [facility] Polio (IPV/OPV) Unknown Completed [facility] TDAP Unknown Completed [facility] Meningococcal Polysaccharide (groups A, C, Y and W-135) conjugate vaccine (MCV4P) Unknown Completed [facility] Meningococcal B, OMV Unknown Completed [facility] HPV9 Unknown Completed [facility] Influenza Virus Vaccine Quad IM, Preserv and ABX Free 6 MO-64 YRS (FLUCELVAX) Unknown Completed [facility] Flu Trivalent Unknown Completed [facility] DTAP Unknown Completed [facility] HIB 4 Dose Schedule Unknown Completed [facility] HEPATITIS A Unknown Completed [facility] Hep B, Adol or Pedi Dosage Unknown Completed [facility] Influenza Virus Vaccine Unknown Completed [facility] MMR Unknown Completed [facility] Pediarix (dtap/hep B/ipv) Unknown Completed [facility] Varicella (varivax)(chicken pox) Unknown Completed [facility] Pneumococcal 7 Conjugate, PCV7 (Prevnar7) Unknown Completed [facility] Influenza Virus Vaccine Quad IM 3+ YRS Unknown Completed [facility] Polio (IPV/OPV) Unknown Completed [facility] TDAP Unknown Completed [facility] Meningococcal Polysaccharide (groups A, C, Y and W-135) conjugate vaccine (MCV4P) Unknown Completed [facility] Meningococcal B, OMV Unknown Completed [facility] HPV9 Unknown Completed [facility] Influenza Virus Vaccine Quad IM, Preserv and ABX Free 6 MO-64 YRS (FLUCELVAX) Unknown Completed [facility] Flu Trivalent Unknown Com[facility] DTAP Unknown Completed [facility] HIB 4 Dose Schedule Unknown Completed [facility] HEPATITIS A Unknown Completed [facility] Hep B, Adol or Pedi Dosage Unknown Completed [facility] Influenza Virus Vaccine Unknown Completed [facility] MMR Unknown Completed [facility] Pediarix (dtap/hep B/ipv) Unknown Completed [facility] Varicella (varivax)(chicken pox) Unknown Completed [facility] Pneumococcal 7 Conjugate, PCV7 (Prevnar7) Unknown Completed [facility] Influenza Virus Vaccine Quad IM 3+ YRS Unknown Completed [facility] Polio (IPV/OPV) Unknown Completed [facility] TDAP Unknown Completed [facility] Meningococcal Polysaccharide (groups A, C, Y and W-135) conjugate vaccine (MCV4P) Unknown Completed [facility] Meningococcal B, OMV Unknown Completed [facility] HPV9 Unknown Completed [facility] Influenza Virus Vaccine Quad IM, Preserv and ABX Free 6 MO-64 YRS (FLUCELVAX) Unknown Completed [facility] Flu Trivalent Unknown Completed [facility] DTAP Unknown Completed [facility] Hep B, Adol or Pedi Dosage Unknown Completed [facility] Polio (IPV/OPV) Unknown Completed [facility] TDAP Unknown Completed [facility] Influenza Virus Vaccine Quad IM, Preserv and ABX Free 6 MO-64 YRS (FLUCELVAX) Unknown Completed [facility] Flu Trivalent Unknown Completed [facility] HIB 4 Dose Schedule Unknown Completed [facility] HEPATITIS A Unknown Completed [facility] Influenza Virus Vaccine Unknown Completed [facility] MMR Unknown Completed [facility] Pediarix (dtap/hep B/ipv) Unknown Completed [facility] Varicella (varivax)(chicken pox) Unknown Completed [facility] Pneumococcal 7 Conjugate, PCV7 (Prevnar7) Unknown Completed [facility] Influenza Virus Vaccine Quad IM 3+ YRS Unknown Completed [facility] Meningococcal Polysaccharide (groups A, C, Y and W-135) conjugate vaccine (MCV4P) Unknown Completed [facility] Meningococcal B, OMV Unknown Completed [facility] HPV9 Unknown Completed [facility] DTAP Unknown Completed [facility] HIB 4 Dose Schedule Unknown Completed [facility] HEPATITIS A Unknown Completed [facility] Hep B, Adol or Pedi Dosage Unknown Completed [facility] Influenza Virus Vaccine Unknown Completed [facility] MMR Unknown Completed [facility] Pediarix (dtap/hep B/ipv) Unknown Completed [facility] Varicella (varivax)(chicken pox) Unknown Completed [facility] Pneumococcal 7 Conjugate, PCV7 (Prevnar7) Unknown Completed [facility] Influenza Virus Vaccine Quad IM 3+ YRS Unknown Completed [facility] Polio (IPV/OPV) Unknown Completed [facility] TDAP Unknown Completed [facility] Meningococcal Polysaccharide (groups A, C, Y and W-135) conjugate vaccine (MCV4P) Unknown Completed [facility] Meningococcal B, OMV Unknown Completed [facility] HPV9 Unknown Completed [facility] Influenza Virus Vaccine Quad IM, Preserv and ABX Free 6 MO-64 YRS (FLUCELVAX) Unknown Completed [facility] Flu Trivalent Unknown Completed [facility] DTAP Unknown Completed [facility] HIB 4 Dose Schedule Unknown Completed [facility] HEPATITIS A Unknown Completed [facility] Hep B, Adol or Pedi Dosage Unknown Completed [facility] Influenza Virus Vaccine Unknown Completed [facility] MMR Unknown Completed [facility] Pediarix (dtap/hep B/ipv) Unknown Completed [facility] Varicella (varivax)(chicken pox) Unknown Completed [facility] Pneumococcal 7 Conjugate, PCV7 (Prevnar7) Unknown Completed [facility] Influenza Virus Vaccine Quad IM 3+ YRS Unknown Completed [facility] Polio (IPV/OPV) Unknown Completed [facility] TDAP Unknown Completed [facility] Meningococcal Polysaccharide (groups A, C, Y and W-135) conjugate vaccine (MCV4P) Unknown Completed [facility] Meningococcal B, OMV Unknown Completed [facility] HPV9 Unknown Completed [facility] Influenza Virus Vaccine Quad IM, Preserv and ABX Free 6 MO-64 YRS (FLUCELVAX) Unknown Completed [facility] Flu Trivalent Unknown Completed [facility] DTAP Unknown Completed [facility] HIB 4 Dose Schedule Unknown Completed [facility] HEPATITIS A Unknown Completed [facility] Hep B, Adol or Pedi Dosage Unknown Completed [facility] Influenza Virus Vaccine Unknown Completed [facility] MMR Unknown Completed [facility] Pediarix (dtap/hep B/ipv) Unknown Completed [facility] Varicella (varivax)(chicken pox) Unknown Completed [facility] Pneumococcal 7 Conjugate, PCV7 (Prevnar7) Unknown Completed [facility] Influenza Virus Vaccine Quad IM 3+ YRS Unknown Completed [facility] Polio (IPV/OPV) Unknown Completed [facility] TDAP Unknown Completed [facility] Meningococcal Polysaccharide (groups A, C, Y and W-135) conjugate vaccine (MCV4P) Unknown Completed [facility] Meningococcal B, OMV Unknown Completed [facility] HPV9 Unknown Completed [facility] Influenza Virus Vaccine Quad IM, Preserv and ABX Free 6 MO-64 YRS (FLUCELVAX) Unknown Completed [facility] Flu Trivalent Unknown Completed [facility] Vital Signs Vital Name Observation Time Observation Value Comments S ource Heart rate 2024-11-23 11:35:00 73 /min [facility] Body temperature 2024-11-23 11:35:00 36.72 Anneliese [facility] Oxygen saturation in Arterial blood by Pulse oximetry 2024-11-23 11:35:00 97 /min [facility] Systolic blood pressure 2024-11-23 11:00:00 128 mm[Hg] [facility] Diastolic blood pressure 2024-11-23 11:00:00 81 mm[Hg] [facility] Respiratory rate 2024-11-23 11:00:00 20 /min [facility] Body height 2024-11-23 09:37:00 172.7 cm [facility] Body weight 2024-11-23 09:37:00 90.719 kg [facility] BMI 2024-11-23 09:37:00 30.41 kg/m2 [facility] Systolic blood pressure 2024-10-26 10:00:00 128 mm[Hg] [facility] Diastolic blood pressure 2024-10-26 10:00:00 76 mm[Hg] [facility] Heart rate 2024-10-26 10:00:00 63 /[facility] 2024-10-26 10:00:00 37.28 Anneliese [facility] Respiratory rate 2024-10-26 10:00:00 16 /min [facility] Oxygen saturation in Arterial blood by Pulse oximetry 2024-10-26 10:00:00 96 /min [facility] Body height 2024-10-26 07:01:00 172.7 cm [facility] Body weight 2024-10-26 07:01:00 93.895 kg [facility] BMI 2024-10-26 07:01:00 31.47 kg/m2 [facility] Systolic blood pressure 2024-03-18 00:00:00 117 mm[Hg] [facility] Diastolic blood pressure 2024-03-18 00:00:00 72 mm[Hg] [facility] Heart rate 2024-03-18 00:00:00 61 /min [facility] Body temperature 2024-03-18 00:00:00 36.94 Anneliese [facility] Respiratory rate 2024-03-18 00:00:00 16 /min [facility] Oxygen saturation in Arterial blood by Pulse oximetry 2024-03-18 00:00:00 100 /min [facility] Body height 2024-03-17 22:49:00 172.7 cm [facility] Body weight 2024-03-17 22:49:00 78.926 kg [facility] BMI 2024-03-17 22:49:00 26.46 kg/m2 [facility] Systolic blood pressure 2024-02-11 02:07:00 138 mm[Hg] [facility] Diastolic blood pressure 2024-02-11 02:07:00 67 mm[Hg] [facility] Heart rate 2024-02-11 02:07:00 84 /min [facility] Body temperature 2024-02-11 02:07:00 37 Anneliese [facility] Respiratory rate 2024-02-11 02:07:00 18 /min [facility] Body height 2024-02-11 02:07:00 172.7 cm [facility] Body weight 2024-02-11 02:07:00 83.915 kg [facility] BMI 2024-02-11 02:07:00 28.13 kg/m2 [facility] Oxygen saturation in Arterial blood by Pulse oximetry 2024-02-11 02:07:00 98 /min [facility] Systolic blood pressure 2023-09-19 19:20:00 130 mm[Hg] [facility] Diastolic blood pressure 2023-09-19 19:20:00 86 mm[Hg] [facility] Heart rate 2023-09-19 19:20:00 81 /min [facility] Body temperature 2023-09-19 19:20:00 37 Anneliese [facility] Respiratory rate 2023-09-19 19:20:00 18 /min [facility] Body weight 2023-09-19 19:20:00 71.169 kg [facility] BMI 2023-09-19 19:20:00 23.86 kg/m2 [facility] Body mass index (BMI) [Percentile] Per age and sex 2023-09-19 19:20:00 67.44 % [facility] Oxygen saturation in Arterial blood by Pulse oximetry 2023-09-19 19:20:00 97 /min [facility] Systolic blood pressure 2023-09-14 17:54:00 119 mm[Hg] [facility] Diastolic blood pressure 2023-09-14 17:54:00 78 mm[Hg] [facility] Heart rate 2023-09-14 17:54:00 73 /min [facility] Body temperature 2023-09-14 17:54:00 37 Anneliese [facility] Respiratory rate 2023-09-14 17:54:00 18 /min [facility] Body height 2023-09-14 17:54:00 172.7 cm [facility] Body weight 2023-09-14 17:54:00 70.308 kg [facility] BMI 2023-09-14 17:54:00 23.57 kg/m2 [facility] Body mass index (BMI) [Percentile] Per age and sex 2023-09-14 17:54:00 64.48 % [facility] Oxygen saturation in Arterial blood by Pulse oximetry 2023-09-14 17:54:00 96 /min [facility] Systolic blood pressure 2023-08-15 21:40:16 118 mm[Hg] [facility] Diastolic blood pressure 2023-08-15 21:40:16 74 mm[Hg] [facility] Heart rate 2023-08-15 21:40:16 59 /min General acute hospital Body temperature 2023-08-15 21:40:16 36.78 Anneliese [facility] Respiratory rate 2023-08-15 21:40:16 16 /min [facility] Oxygen saturation in Arterial blood by Pulse oximetry 2023-08-15 21:40:16 100 /min [facility] Body height 2023-08-15 16:36:00 172.7 cm [facility] Body weight 2023-08-15 16:36:00 70.761 kg [facility] BMI 2023-08-15 16:36:00 23.72 kg/m2 [facility] Body mass index (BMI) [Percentile] Per age and sex 2023-08-15 16:36:00 66.62 % [facility] Systolic blood pressure 2023-07-12 14:28:00 124 mm[Hg] [facility] Diastolic blood pressure 2023-07-12 14:28:00 70 mm[Hg] [facility] Heart rate 2023-07-12 14:28:00 85 /min [facility] acute hospital Body temperature 2023-07-12 14:28:00 36.89 Annelisee [facility] Respiratory rate 2023-07-12 14:28:00 18 /min [facility] Body weight 2023-07-12 14:28:00 72.893 kg [facility] Oxygen saturation in Arterial blood by Pulse oximetry 2023-07-12 14:28:00 98 /min [facility] Systolic blood pressure 2023-06-26 14:44:00 115 mm[Hg] [facility] Diastolic blood pressure 2023-06-26 14:44:00 75 mm[Hg] [facility] Heart rate 2023-06-26 14:44:00 76 /min [facility] acute hospital Body temperature 2023-06-26 14:44:00 36.83 Anneliese [facility] Respiratory rate 2023-06-26 14:44:00 18 /min [facility] Body height 2023-06-26 14:44:00 170.2 cm [facility] Body weight 2023-06-26 14:44:00 68.13 kg [facility] BMI 2023-06-26 14:44:00 23.52 kg/m2 [facility] Body mass index (BMI) [Percentile] Per age and sex 2023-06-26 14:44:00 65.43 % [facility] Oxygen saturation in Arterial blood by Pulse oximetry 2023-06-26 14:44:00 99 /min [facility] Systolic blood pressure 2023-06-05 16:07:00 126 mm[Hg] [facility] Diastolic blood pressure 2023-06-05 16:07:00 69 mm[Hg] [facility] Heart rate 2023-06-05 16:07:00 84 /min General acute hospital Body temperature 2023-06-05 16:07:00 36.94 Anneliese [facility] Respiratory rate 2023-06-05 16:07:00 16 /min [facility] Body weight 2023-06-05 16:07:00 70.171 kg [facility] Oxygen saturation in Arterial blood by Pulse oximetry 2023-06-05 16:07:00 96 /min [facility] Systolic blood pressure 2023-06-02 16:34:00 105 mm[Hg] [facility] Diastolic blood pressure 2023-06-02 16:34:00 52 mm[Hg] [facility] Heart rate 2023-06-02 16:34:00 70 /min General acute hospital Body temperature 2023-06-02 16:34:00 36.56 Anneliese [facility] Respiratory rate 2023-06-02 16:34:00 18 /min [facility] Oxygen saturation in Arterial blood by Pulse oximetry 2023-06-02 16:34:00 92 /min [facility] Body weight 2023-06-01 08:52:00 66.996 kg [facility] BMI 2023-06-01 08:52:00 22.46 kg/m2 [facility] Body mass index (BMI) [Percentile] Per age and sex 2023-06-01 08:52:00 53.28 % [facility] Body height 2023-05-29 15:43:00 172.7 cm [facility] Systolic blood pressure 2023-05-25 04:00:00 111 mm[Hg] [facility] Diastolic blood pressure 2023-05-25 04:00:00 68 mm[Hg] [facility] Heart rate 2023-05-25 04:00:00 95 /min General acute hospital Body temperature 2023-05-25 04:00:00 37.5 Anneliese [facility] Respiratory rate 2023-05-25 04:00:00 18 /min [facility] Oxygen saturation in Arterial blood by Pulse oximetry 2023-05-25 04:00:00 95 /min [facility] Body height 2023-05-25 01:13:00 172.7 cm [facility] Body weight 2023-05-25 01:13:00 69.854 kg [facility] BMI 2023-05-25 01:13:00 23.42 kg/m2 [facility] Body mass index (BMI) [Percentile] Per age and sex 2023-05-25 01:13:00 64.98 % [facility] Systolic blood pressure 2023-05-24 01:25:00 112 mm[Hg] [facility] Diastolic blood pressure 2023-05-24 01:25:00 68 mm[Hg] [facility] Heart rate 2023-05-24 01:25:00 127 /min General acute hospital Body temperature 2023-05-24 01:25:00 39.39 Anneliese [facility] Respiratory rate 2023-05-24 01:25:00 15 /min [facility] Body height 2023-05-24 01:25:00 172.7 cm [facility] Body weight 2023-05-24 01:25:00 70.897 kg [facility] BMI 2023-05-24 01:25:00 23.77 kg/m2 [facility] Body mass index (BMI) [Percentile] Per age and sex 2023-05-24 01:25:00 68.63 % [facility] Oxygen saturation in Arterial blood by Pulse oximetry 2023-05-24 01:25:00 94 /min [facility] Systolic blood pressure 2023-04-17 14:30:00 109 mm[Hg] [facility] Diastolic blood pressure 2023-04-17 14:30:00 71 mm[Hg] [facility] Heart rate 2023-04-17 14:30:00 58 /min General acute hospital Body temperature 2023-04-17 14:30:00 36.39 Anneliese [facility] Body height 2023-04-17 14:30:00 170.1 cm [facility] Body weight 2023-04-17 14:30:00 73.528 kg [facility] BMI 2023-04-17 14:30:00 25.41 kg/m2 [facility] Body mass index (BMI) [Percentile] Per age and sex 2023-04-17 14:30:00 82.11 % [facility] Oxygen saturation in Arterial blood by Pulse oximetry 2023-04-17 14:30:00 97 /min [facility] Systolic blood pressure 2023-04-14 14:00:00 115 mm[Hg] [facility] Diastolic blood pressure 2023-04-14 14:00:00 65 mm[Hg] [facility] Heart rate 2023-04-14 14:00:00 59 /min General acute hospital Respiratory rate 2023-04-14 14:00:00 13 /min [facility] Oxygen saturation in Arterial blood by Pulse oximetry 2023-04-14 14:00:00 99 /min [facility] Body weight 2023-04-14 11:43:00 73.029 kg [facility] BMI 2023-04-14 11:43:00 24.48 kg/m2 [facility] Body mass index (BMI) [Percentile] Per age and sex 2023-04-14 11:43:00 75.64 % [facility] Body temperature 2023-04-14 11:38:00 36.78 Anneliese [facility] Body height 2023-04-14 11:38:00 172.7 cm [facility] Systolic blood pressure 2022-12-23 16:34:00 122 mm[Hg] [facility] Diastolic blood pressure 2022-12-23 16:34:00 73 mm[Hg] [facility] Heart rate 2022-12-23 16:34:00 75 /min [facility] acute hospital Respiratory rate 2022-12-23 16:34:00 14 /min [facility] Oxygen saturation in Arterial blood by Pulse oximetry 2022-12-23 16:34:00 98 /min [facility] Body temperature 2022-12-23 14:10:00 36.56 Anneliese [facility] Body height 2022-12-23 14:10:00 172.7 cm [facility] Body weight 2022-12-23 14:10:00 74.844 kg [facility] BMI 2022-12-23 14:10:00 25.09 kg/m2 [facility] Body mass index (BMI) [Percentile] Per age and sex 2022-12-23 14:10:00 81.48 % [facility] Systolic blood pressure 2022-12-10 15:42:00 119 mm[Hg] [facility] Diastolic blood pressure 2022-12-10 15:42:00 78 mm[Hg] [facility] Heart rate 2022-12-10 15:42:00 75 /min [facility] acute hospital Body height 2022-12-10 15:42:00 170.2 cm [facility] Body weight 2022-12-10 15:42:00 72.893 kg [facility] BMI 2022-12-10 15:42:00 25.17 kg/m2 [facility] Body mass index (BMI) [Percentile] Per age and sex 2022-12-10 15:42:00 82.13 % [facility] Oxygen saturation in Arterial blood by Pulse oximetry 2022-12-10 15:42:00 98 /min [facility] Systolic blood pressure 2022-11-12 02:27:00 127 mm[Hg] [facility] Diastolic blood pressure 2022-11-12 02:27:00 82 mm[Hg] [facility] Heart rate 2022-11-12 02:27:00 92 /min [facility] acute hospital Body temperature 2022-11-12 02:27:00 37.11 Anneliese [facility] Respiratory rate 2022-11-12 02:27:00 18 /min [facility] Body height 2022-11-12 02:27:00 175.3 cm [facility] Body weight 2022-11-12 02:27:00 73.936 kg [facility] BMI 2022-11-12 02:27:00 24.07 kg/m2 [facility] Body mass index (BMI) [Percentile] Per age and sex 2022-11-12 02:27:00 74.62 % [facility] Oxygen saturation in Arterial blood by Pulse oximetry 2022-11-12 02:27:00 98 /min [facility] Systolic blood pressure 2022-11-07 15:44:00 115 mm[Hg] [facility] Diastolic blood pressure 2022-11-07 15:44:00 77 mm[Hg] [facility] Heart rate 2022-11-07 15:44:00 71 /min [facility] acute hospital Body temperature 2022-11-07 15:44:00 36.11 Anneliese [facility] Respiratory rate 2022-11-07 15:44:00 16 /min [facility] Body height 2022-11-07 15:44:00 174 cm [facility] Body weight 2022-11-07 15:44:00 74.39 kg [facility] BMI 2022-11-07 15:44:00 24.57 kg/m2 [facility] Body mass index (BMI) [Percentile] Per age and sex 2022-11-07 15:44:00 78.57 % [facility] Oxygen saturation in Arterial blood by Pulse oximetry 2022-11-07 15:44:00 97 /min [facility] Systolic blood pressure 2022-11-06 01:26:00 111 mm[Hg] [facility] Diastolic blood pressure 2022-11-06 01:26:00 71 mm[Hg] [facility] Heart rate 2022-11-06 01:26:00 71 /min [facility] acute hospital Body temperature 2022-11-06 01:26:00 37.17 Anneliese [facility] Respiratory rate 2022-11-06 01:26:00 18 /min [facility] Body weight 2022-11-06 01:26:00 74.39 kg [facility] Oxygen saturation in Arterial blood by Pulse oximetry 2022-11-06 01:26:00 98 /min [facility] Heart rate 2022-10-21 01:00:00 71 /min [facility] acute hospital Oxygen saturation in Arterial blood by Pulse oximetry 2022-10-21 01:00:00 97 /min [facility] Systolic blood pressure 2022-10-20 23:50:00 125 mm[Hg] [facility] Diastolic blood pressure 2022-10-20 23:50:00 77 mm[Hg] [facility] Respiratory rate 2022-10-20 23:50:00 19 /min [facility] Body temperature 2022-10-20 22:26:00 36.83 Anneliese [facility] Body weight 2022-10-20 22:26:00 71.668 kg [facility] Systolic blood pressure 2022-09-12 01:36:00 103 mm[Hg] [facility] Diastolic blood pressure 2022-09-12 01:36:00 60 mm[Hg] [facility] Heart rate 2022-09-12 01:36:00 82 /min [facility] Body temperature 2022-09-12 01:36:00 37.22 Anneliese [facility] Respiratory rate 2022-09-12 01:36:00 16 /min [facility] Body height 2022-09-12 01:36:00 172.7 cm [facility] Body weight 2022-09-12 01:36:00 78.881 kg [facility] BMI 2022-09-12 01:36:00 26.44 kg/m2 [facility] Body mass index (BMI) [Percentile] Per age and sex 2022-09-12 01:36:00 89.07 % [facility] Oxygen saturation in Arterial blood by Pulse oximetry 2022-09-12 01:36:00 97 /min [facility] Systolic blood pressure 2022-08-15 02:06:00 106 mm[Hg] [facility] Diastolic blood pressure 2022-08-15 02:06:00 70 mm[Hg] [facility] Heart rate 2022-08-15 02:06:00 90 /min [facility] Body temperature 2022-08-15 02:06:00 36.78 Anneliese [facility] Respiratory rate 2022-08-15 02:06:00 18 /min [facility] Body height 2022-08-15 02:06:00 172.1 cm [facility] Body weight 2022-08-15 02:06:00 80.468 kg [facility] BMI 2022-08-15 02:06:00 27.16 kg/m2 [facility] Body mass index (BMI) [Percentile] Per age and sex 2022-08-15 02:06:00 91.58 % [facility] Oxygen saturation in Arterial blood by Pulse oximetry 2022-08-15 02:06:00 98 /min [facility] Systolic blood pressure 2022-08-10 01:06:00 103 mm[Hg] [facility] Diastolic blood pressure 2022-08-10 01:06:00 65 mm[Hg] [facility] Heart rate 2022-08-10 01:06:00 60 /min [facility] acute hospital Body temperature 2022-08-10 01:06:00 37 Anneliese [facility] Respiratory rate 2022-08-10 01:06:00 20 /min [facility] Body weight 2022-08-10 01:06:00 79.379 kg [facility] Oxygen saturation in Arterial blood by Pulse oximetry 2022-08-10 01:06:00 99 /min [facility] Systolic blood pressure 2022-06-13 15:36:00 108 mm[Hg] [facility] Diastolic blood pressure 2022-06-13 15:36:00 72 mm[Hg] [facility] Heart rate 2022-06-13 15:36:00 71 /min [facility] acute hospital Body temperature 2022-06-13 15:36:00 36.72 Anneliese [facility] Respiratory rate 2022-06-13 15:36:00 20 /min [facility] Body height 2022-06-13 15:36:00 172 cm [facility] Body weight 2022-06-13 15:36:00 80.74 kg [facility] BMI 2022-06-13 15:36:00 27.29 kg/m2 [facility] Body mass index (BMI) [Percentile] Per age and sex 2022-06-13 15:36:00 92.25 % [facility] Oxygen saturation in Arterial blood by Pulse oximetry 2022-06-13 15:36:00 98 /min [facility] Systolic blood pressure 2022-06-11 19:14:00 107 mm[Hg] [facility] Diastolic blood pressure 2022-06-11 19:14:00 71 mm[Hg] [facility] Heart rate 2022-06-11 19:14:00 77 /min [facility] acute hospital Body temperature 2022-06-11 19:14:00 36.83 Anneliese [facility] Respiratory rate 2022-06-11 19:14:00 18 /min [facility] Body height 2022-06-11 19:14:00 175.3 cm [facility] Body weight 2022-06-11 19:14:00 81.965 kg [facility] BMI 2022-06-11 19:14:00 26.68 kg/m2 [facility] Body mass index (BMI) [Percentile] Per age and sex 2022-06-11 19:14:00 90.51 % [facility] Oxygen saturation in Arterial blood by Pulse oximetry 2022-06-11 19:14:00 97 /min [facility] Procedures Procedure Date / Time Performed Performing Clinician Source URINALYSIS 2024-11-23 10:15:00 [facility] 2024-11-23 10:00:49 Holly Shukla [facility] COMP. METABOLIC PANEL ([id number]) 2024-11-23 09:39:00 Holly Shukla [facility] CBC WITH DIFF 2024-11-23 09:39:00 Holly Shukla U [facility] XR CHEST 1 VW 2024-10-26 09:21:39 Timothy Lopez [facility] INFLUENZA A/B RSV COVID NAAT 2024-10-26 07:35:00 Timothy Lopez [facility] RAPID STREP SCREEN FOR GROUP A 2024-03-17 22:57:00 Ilia Murphy [facility] GARDASIL 9 (HPV 9V) VACCINE 2023-09-19 20:01:22 Georgie Regalado [facility] XR CHEST 1 VW 2023-08-15 20:39:00 Vega Richmond [facility] CT ABDOMEN PELVIS W CONTRAST 2023-08-15 19:42:53 Vega Richmond [facility] LIPASE 2023-08-15 17:21:00 [facility] COMP. METABOLIC PANEL ([id number]) 2023-08-15 17:21:00 Vega Richmond [facility] CBC WITH DIFF 2023-08-15 17:21:00 Vega Richmond [facility] URINALYSIS 2023-08-15 17:21:00 Vega [facility] ASSIGNMENT OF BENEFITS 2023-08-15 17:07:19 Docto r Unassigned, [place] [facility] CONSENT/REFUSAL FOR DIAGNOSIS AND TREATMENT 2023-08-15 16:25:19 Doctor Unassigned, [place] [facility] EKG (SCANNED DOCUMENTS) 2023-07-12 05:01:00 Doct or Unassigned, [place] [facility] GARDASIL 9 (HPV 9V) VACCINE 2023-06-26 15:26:30 Imani Dunn [facility] MENINGOCOCCAL B VACCINE, OMV, 2 DOSE, IM 2023-06-26 15:26:30 Imani Dunn [facility] FLU VACC ([id number]), 6 MO-64 YRS, .5ML, IM, QUAD (FLUCELVAX) 2023-06-26 15:26:30 Imani Dunn [facility] CBC WITHOUT DIFF 2023-06-02 09:06:00 Billy Adkins [facility] XR CHEST 2 VW 2023-06-01 21:58:00 Claudia Adkins [facility] LEGIONELLA AND STREPTOCOCCUS PNEUMONIAE URINARY ANTIGENS 2023-06-01 20:39:00 [facility] 2023-06-01 12:08:00 Claudia Adkins [facility] MAGNESIUM 2023-06-01 08:58:00 Claudia Adkins [facility] BASIC METABOLIC PANEL (NA, K, CL, CO2, GLUCOSE, BUN, CREATININE, CA) 2023-06-01 08:58:00 [facility]FF 2023-05-31 14:43:00 Claudia Adkins [facility] ANTI-DOUBLE STRANDED DNA 2023-05-31 12:33:00 Jeannette Adkins [facility] SEDIMENTATION RATE 2023-05-31 12:33:00 Claudia Adkins [facility] HIGH SENSITIVITY CRP 2023-05-31 12:33:00 [facility] 2023-05-31 [facility]:02[facility] (NA, K, CL, CO2, GLUCOSE, BUN, CREATININE, CA) 2023-05-31 11:02:[address] [facility]AST 2023-05-30 16:12:56 Jed [facility] XR CHEST 1 VW 2023-05-30 14:32:00 Kirsty Taylor [facility] CBC WITHOUT DIFF 2023-05-30 09:03:00 Paulino Gonzalez [facility] MAGNESIUM 2023-05-30 08:10:00 Paulino Gonzalez [facility] BASIC METABOLIC PANEL (NA, K, CL, CO2, GLUCOSE, BUN, CREATININE, CA) 2023-05-30 08:10:00 Paulino Gonzalez [facility] URINE DRUG (IMMUNOASSAY) - COMPREHENSIVE DRUG SCREEN 2023-05-29 16:08:00 [facility] 2023-05-29 13:19:00 Kirsty Taylor [facility] CBC WITH DIFF 2023-05-29 13:19:00 Kirsty Taylor [facility] SPUTUM CULTURE 2023-05-29 13:19:00 Kirsty Taylor [facility] N-TERMINAL PRO-BNP 2023-05-29 13:19:00 Kimberly Taylor [facility] PROCALCITONIN 2023-05-29 13:19:00 Kirsty Taylor [facility] MRSA / MSSA SCREEN BY PCR, ANTONELLA 2023-05-29 13:19:00 paul Kirsty Crook [facility] ACUTE CARE ARTERIAL BLOOD GAS 2023-05-29 09:35:00 Farzana Anderson [facility] RESPIRATORY PANEL BY PCR 2023-05-29 09:14:00 Karyna Anderson [facility] XR CHEST 1 VW 2023-05-29 08:05:00 Farzana Anderson [facility] BLOOD CULTURE SCREEN 2023-05-29 07:39:00 Farzana Anderson [facility] BASIC METABOLIC PANEL (NA, K, CL, CO2, GLUCOSE, BUN, CREATININE, CA) 2023-05-29 07:39:00 Farzana Anderson [facility] CBC WITH DIFF 2023-05-29 07:38:00 Farzana Anderson [facility] LACTIC ACID WHOLE BLOOD 2023-05-29 07:38:00 Julián Anderson [facility] EKG-12 LEAD 2023-05-29 07:16:38 Doctor Unass igned, [place] [facility] CONSENT/REFUSAL FOR DIAGNOSIS AND TREATMENT 2023-05-29 07:02:50 Doctor Unassigned, [place] [facility] CRITICAL CARE 2023-05-29 07:02:00 Farzana Anderson [facility] LACTIC ACID WHOLE BLOOD 2023-05-25 02:35:00 Remy Henao [facility] RAPID INFLUENZA A/B 2023-05-25 02:32:00 Karyna Henao [facility] COVID-19 (ID NOW RAPID TESTING) 2023-05-25 02:32:00 Remy Henao [facility] CT ABDOMEN PELVIS WO CONTRAST 2023-05-25 01:53:00 Remy Henao [facility] LIPASE 2023-05-25 01:25:00 [facility] ([id number][facility] 2023-05-25 01:25:00 Remy Henao [facility] CBC WITH DIFF 2023-05-25 01:25:00 Remy Henao U [facility] URINALYSIS 2023-05-25 01:25:00 [facility] FOR [facility]AG[facility]IS AND TREATMENT 2023-05-25 01:03:39 Doctor Unassigned, [place] [facility] POCT SARS-COV-2 ANTIGEN (BINAX NOW) 2023-05-24 01:57:00 Yvette Ware [facility] POCT MOLECULAR STREP 2023-05-24 01:44:00 Unknown, Attarmida garcia [facility] POCT URINALYSIS AUTO 2023-04-17 14:36:00 No Nicole [facility] CT ABDOMEN PELVIS WO CONTRAST 2023-04-14 12:13:00 Rebekah Victor [facility] LIPASE 2023-04-14 11:48:00 Rebekah [facility] COMP. METABOLIC PANEL ([id number]) 2023-04-14 11:48:00 Rebekah Victor [facility] CBC WITH DIFF 2023-04-14 11:48:00 Rebekah Victor [facility] URINALYSIS 2023-04-14 11:48:00 Rebekah Victor [facility] CONSENT/REFUSAL FOR DIAGNOSIS AND TREATMENT 2023-04-14 11:34:24 Doctor Unassigned, [place] [facility] URINALYSIS 2022-12-23 15:59:00 Lori Balbuena U [facility] CT ABDOMEN PELVIS WO CONTRAST 2022-12-23 15:20:03 Lori Balbuena [facility] NOTICE OF PRIVACY PRACTICES 2022-12-23 14:58:32 Doctor Unassigned, [place] [facility] LIPASE 2022-12-23 14:33:00 L[facility] COMP. METABOLIC PANEL ([id number]) 2022-12-23 14:33:00 Lori Balbuena [facility] CBC WITH DIFF 2022-12-23 14:33:00 Lori Balbuena [facility] CONSENT/REFUSAL FOR DIAGNOSIS AND TREATMENT 2022-12-23 14:00:46 Doctor Unassigned, [place] [facility] POCT URINALYSIS AUTO 2022-12-10 16:00:00 No Nicole [facility] POCT URINALYSIS 2022-11-12 02:33:00 Riley Christian [facility] POCT URINALYSIS AUTO 2022-11-07 15:56:00 No Nicole [facility] CT ABDOMEN PELVIS WO CONTRAST 2022-10-20 23:09:48 Gorge Garnett [facility] BASIC METABOLIC PANEL (NA, K, CL, CO2, GLUCOSE, BUN, CREATININE, CA) 2022-10-20 22:49:00 Gorge Garnett [facility] CBC WITH DIFF 2022-10-20 22:49:00 [facility] 2022-10-20 22:49:00 Gorge Garnett Un [facility] CONSENT/REFUSAL FOR DIAGNOSIS AND TREATMENT 2022-10-20 22:18:06 Doctor Unassigned, [place] [facility] POCT MOLECULAR FLU 2022-08-10 01:15:00 Unknown, Attend [facility] CONSENT/REFUSAL FOR DIAGNOSIS AND TREATMENT 2022-08-10 00:56:24 Doctor Unassigned, [place] [facility] ASSIGNMENT OF BENEFITS 2022-08-10 00:56:13 Docto r Unassigned, [place] [facility] POCT MOLECULAR FLU 2022-06-11 19:19:00 [facility] 2022-06-11 19:17:00 Georgie Ireland [facility] Encounters Start Date/Time End Date/Time Encounter Type Admission Type Attending [facility] Care Facility Care Department Encounter ID Source 2021-08-05 22:30:[address] [facility] [id number] [facility] 2021-08-04 13:14:[address] [facility] [id number] [facility] 2024-11-23 03:38:00 2024-11-23 05:47:00 Emergency X HOLLY SHUKLA GAYLA HOLLY [facility] ERT [id number] [facility] 2024-11-23 03:38:00 2024-11-23 05:47:00 Emergency Holly Shukla [facility] 1..840.114 350.1.13.10 4.2.7.2.686 [id number] [facility] 2024-10-26 01:06:00 2024-10-26 04:08:00 Emergency Haley LOPEZ TIMOTHYTIMOTHY HUBBARD [facility] ERT [id number] [facility] 2024-10-26 01:06:00 2024-10-26 04:08:00 Emergency Timothy [facility] 1..840.114 350.1.13.10 4.2.7.2.686 [id number] [id number] [facility] 2024-03-17 17:52:00 2024-03-17 19:21:00 Emergency X ILIA MURPHY [facility] ERT [id number] [facility] 2024-03-17 17:52:00 2024-03-17 19:21:00 Emergency Ilia Murphy [facility] 1..840.114 350.1.13.10 4.2.7.2.686 [id number] [id number] [facility] 2024-02-10 21:12:00 2024-02-10 22:11:00 Emergency X BLOSSOM LUKE [facility] ERT [id number] [facility] 2024-02-10 21:12:00 2024-02-10 22:11:00 Emergency Blossom Luke [facility] 1.0.114 350.1.13.10 4.2.7.2.686 [id number] [id number] [facility] 2023-09-19 13:20:00 2023-09-19 14:11:[address] [facility] [id number] [facility] 2023-09-19 13:20:00 2023-09-19 14:11:08 [facility] 1..114 350.1.13.10 4.2.7.2.686 [id number] [facility] 2023-09-19 11:00:00 2023-09-19 11:00:00 Outpatient R IMANI DUNN [facility] [id number] [facility] 2023-09-19 00:00:00 2023-09-19 00:00:00 Patient Secure Msg Doctor Unassigned, [place] [facility] 1..114 350.1.13.10 4.2.7.2.686 [id number] [facility] 2023-09-14 11:54:00 2023-09-14 12:49:00 Emergency X VEGA R[place]MOND [facility] ERT [id number] [facility] 2023-09-14 11:54:00 2023-09-14 12:49:00 Emergency Vega Richmond [facility] 1..114 350.1.13.10 4.2.7.2.686 [id number] 084 [id number] [facility] 2023-08-21 00:00:00 2023-08-21 00:00:00 Letter (Out) Clinic, [facility] 1..114 350.1.13.10 4.2.7.2.686 [id number] [facility] 2023-08-15 10:39:00 2023-08-15 15:42:00 Emergency X VEGA [place] [facility] ERT [id number] [facility] 2023-08-15 10:39:00 2023-08-15 15:42:00 Emergency Vega [place] [facility] 1.84.114 350.1.13.10 4.2.7.2.686 [id number] [id number] [facility] 2023-07-29 09:40:00 2023-07-29 09:40:00 Outpatient IMANI CRUZ [facility] [id number] [facility] 2023-07-12 09:20:00 2023-07-12 09:59:50 Outpatient R SEPIDEH LE LESLEY [facility] [id number] [facility] 2023-07-12 09:20:00 2023-07-12 09:59:50 [facility] 1.840.114 350.1.13.10 4.2.7.2.686 [id number] [facility] 2023-07-12 00:00:00 2023-07-12 00:00:00 Orders Only Doctor Unassigned, [place] [facility] 1..114 350.1.13.10 4.2.7.2.686 [id number] [facility] 2023-07-12 00:00:00 2023-07-12 00:00:00 Patient Secure Msg Doctor Unassigned, [place] [facility] 1.114 350.1.13.10 4.2.7.2.686 [id number] 019 [id number] [facility] 2023-07-03 00:00:00 2023-07-03 00:00:00 Imani Pierre [facility] PROFESSIO NAL BUILDING 1.840.114 350.1.13.10 4.2.7.2.686 [id number] [facility] 2023-06-28 00:00:00 2023-06-28 00:00:00 Telephone Imani Dunn [facility] 1.2.840.114 350.1.13.10 4.2.7.2.686 [id number] 225 [id number] [facility] 2023-06-28 00:00:00 2023-06-28 00:00:00 Telephone Imani Dunn [facility] 1.2.840.114 350.1.13.10 4.2.7.2.686 [id number] 225 [id number] [facility] 2023-06-28 00:00:00 2023-06-28 00:00:00 Telephone Imani Dunn [facility] 1.2.840.114 350.1.13.10 4.2.7.2.686 [id number] 225 [id number] [facility] 2023-06-26 13:15:00 2023-06-26 13:30:00 Billing Encounter Only, Adc Pedi Imani Jennings [facility] 1.2.840.114 350.1.13.10 4.2.7.2.686 [id number] [facility] 2023-06-26 13:15:00 2023-06-26 13:15:00 Outpatient R IMANI DUNN [facility] [id number] [facility] 2023-06-26 11:45:00 2023-06-26 12:00:00 Internetworking Technician Visit 2, Adc Lab Imani Dunn [facility] 1.2.840.114 350.1.13.10 4.2.7.2.686 [id number] [facility] 2023-06-26 09:40:00 2023-06-26 10:40:07 Office Visit Imani Dunn [facility] 1.2840.114 350.1.13.10 4.2.7.2.686 [id number] [facility] 2023-06-19 09:40:00 2023-06-19 09:40:00 Outpatient R IMANI DUNN [facility] [id number] [facility] 2023-06-14 00:00:00 2023-06-14 00:00:00 Letter (Out) Faculty, Pulmonary [facility] 1..114 350.1.13.10 4.2.7.2.686 [id number] 084 [id number] [facility] 2023-06-12 00:00:00 2023-06-12 00:00:00 Patient Secure Msg Doctor Unassigned, [place] [facility] 1.20.114 350.1.13.10 4.2.7.2.686 [id number] [id number] [facility] 2023-06-07 00:00:00 2023-06-07 00:00:00 Patient Secure Msg Doctor Unassigned, [place] [facility] 1.2840.114 350.1.13.10 4.2.7.2.686 [id number] 019 [id number] [facility] 2023-06-05 11:00:00 2023-06-05 11:31:25 Outpatient R IMANI DUNN [facility] [id number] [facility] 2023-06-05 11:00:00 2023-06-05 11:31:25 Office Visit Imani Dunn [facility] 1.840.114 350.1.13.10 4.2.7.2.686 [id number] [facility] 2023-06-04 00:00:00 2023-06-04 00:00:00 Transition of Care Sophia Marni DO 1..114 350.1.13.10 4.2.7.2.686 [id number] [facility] 2023-06-03 00:00:00 2023-06-03 00:00:00 Patient Secure Msg Doctor Unassigned, [place] [facility] 1..114 350.1.13.10 4.2.7.2.686 [id number] 019 [id number] [facility] 2023-05-29 02:05:00 2023-06-02 14:00:00 Inpatient X NETTE S[facility] [id number] [facility] 2023-05-29 02:05:00 2023-06-02 14:00:00 Hospital Encounter Farzana Anderson, Paulino Taylor [facility] ([facility]) 1.114 350.1.13.10 4.2.7.2.686 [id number] [facility] 2023-05-24 20:18:00 2023-05-24 23:20:00 Emergency X ADERIBOB, KARYNAIL [facility] ERT [id number] [facility] 2023-05-24 20:18:00 2023-05-24 23:20:00 Emergency Aderibibrandone, Karynail [facility] 1..114 350.1.13.10 4.2.7.2.686 [id number] [id number] [facility] 2023-05-24 00:00:00 2023-05-24 00:00:00 [facility] 1..114 350.1.13.10 4.2.7.2.686 [id number] 370 [id number] [facility] 2023-05-24 00:00:00 2023-05-24 00:00:00 Letter (Out) Kamini Valenzuela [facility] 1.840.114 350.1.13.10 4.2.7.2.686 [id number] [facility] 2023-05-23 20:20:00 2023-05-23 20:56:24 Outpatient R YVETTE WARE [facility] [id number] [facility] 2023-05-23 20:20:00 2023-05-23 20:56:24 Urgent Care Yvette Ware Unknown, Attending [facility] 1.840.114 350.1.13.10 4.2.7.2.686 [id number] 370 [id number] [facility] 2023-05-21 13:40:00 2023-05-21 13:40:00 Outpatient R IMANI DUNN [facility] [id number] [facility] 2023-04-17 09:30:00 2023-04-17 16:42:33 Outpatient R COREY [facility] [id number] [facility] 2023-04-17 09:30:00 2023-04-17 16:42:33 Office Visit Corey [facility] MEDICAL OFFICE BUILDING 1.840.114 350.1.13.10 4.2.7.2.686 [id number] [facility] 2023-04-15 00:00:00 2023-04-15 00:00:00 Telephone Imani Dunn [facility] NAL BUILD[facility] 1..840.114 350.1.13.10 4.2.7.2.686 [id number] [facility] 2023-04-14 06:41:00 2023-04-14 09:44:00 Emergency X VEGA R[place]MON[place] [facility] ERT [id number] [facility] 2023-04-14 06:41:00 2023-04-14 09:44:00 Emergency Vega [place] [facility] 1.2.840.114 350.1.13.10 4.2.7.2.686 [id number] [id number] [facility] 2022-12-23 09:11:00 2022-12-23 11:54:00 Emergency X LORI BALBUENA [facility] ERT [id number] [facility] 2022-12-23 09:11:00 2022-12-23 11:54:00 Emergency Lori Balbuena F [facility] 1.2.840.114 350.1.13.10 4.2.7.2.686 [id number] 084 [id number] [facility] 2022-12-10 10:00:00 2022-12-10 10:30:00 [facility] 1.2.840.114 350.1.13.10 4.2.7.2.686 [id number] [facility] 2022-12-10 10:00:00 2022-12-10 10:00:00 [facility] [id number] 2022-12-05 13:30:00 2022-12-05 13:30:00 [facility] [id number] [facility] 2022-11-11 20:40:00 2022-11-11 20:40:30 Outpatient R RILEY CHRISTIAN [facility] [id number] [facility] 2022-11-11 20:40:00 2022-11-11 20:40:30 Urgent Care Riley Christian Unknown, Attending [facility] 1.84.114 350.1.13.10 4.2.7.2.686 [id number] 370 [id number] [facility] 2022-11-07 10:30:00 2022-11-07 10:30:00 [facility] 1.84.114 350.1.13.10 4.2.7.2.686 [id number] [facility] 2022-11-07 10:30:00 2022-11-07 10:17:52 Outpatient R AMELIEJEFERSON [facility] [id number] [facility] 2022-11-06 00:00:00 2022-11-06 00:00:00 Letter (Out) Annita Recio [facility] 1.84.114 350.1.13.10 4.2.7.2.686 [id number] [facility] 2022-11-05 19:20:00 2022-11-05 19:50:44 Outpatient R GEORGIE IRELAND [facility] [id number] [facility] 2022-11-05 19:20:00 2022-11-05 19:40:00 Urgent Care Georgie Ireland Unknown, Attending [facility] OFFICE BUILD[facility] 1.284.114 350.1.13.10 4.2.7.2.686 [id number] 370 [id number] [facility] 2022-11-05 00:00:00 2022-11-05 00:00:00 Letter (Out) Georgie Ireland [facility] OFFICE BUILD[facility] 1.284.114 350.1.13.10 4.2.7.2.686 [id number] 370 [id number] [facility] 2022-10-20 16:27:00 2022-10-20 19:14:00 Emergency X GORGE GARNETT [facility] ERT [id number] [facility] 2022-10-20 16:27:00 2022-10-20 19:14:00 Emergency Gorge Garnett [facility] 1.2840.114 350.1.13.10 4.2.7.2.686 [id number] [id number] [facility] 2022-10-20 00:00:00 2022-10-20 00:00:00 Orders Only Doctor Unassigned, [place] [facility] 1.2840.114 350.1.13.10 4.2.7.2.686 [id number] [facility] 2022-09-11 19:20:00 2022-09-11 19:52:28 Outpatient R JUAN PABLO CAMERON [facility] [id number] [facility] 2022-09-11 19:20:00 2022-09-11 19:52:28 Urgent Care Juan Pablo Cameron Unknown, Attending [facility] OFF[facility] 1..840.114 350.1.13.10 4.2.7.2.686 [id number] 370 [id number] [facility] 2022-09-11 00:00:00 2022-09-11 00:00:00 Letter (Out) Provider, Ang Nader Urgent Care [facility] OFF[facility] 1..840.114 350.1.13.10 4.2.7.2.686 [id number] 370 [id number] [facility] 2022-08-14 20:00:00 2022-08-14 20:35:47 Outpatient R RAMO PADILLA [facility] [id number] [facility] 2022-08-14 20:00:00 2022-08-14 20:35:47 Urgent Care Ramo Pdailla Unknown, Attending [facility] MEDICAL OFFICE BUILDING 1.2.840.114 350.1.13.10 4.2.7.2.686 [id number] [facility] 2022-08-09 20:00:00 2022-08-09 20:34:44 Outpatient Kizzy TRAVIS NUGENTY [facility] [id number] [facility] 2022-08-09 20:00:00 2022-08-09 20:20:00 Urgent Care Axel Nugent Dionisio Unknown, Attending [facility] MED[facility] OFFICE BUILDING 1.2.840.114 350.1.13.10 4.2.7.2.686 [id number] 370 [id number] [facility] 2022-08-09 00:00:00 2022-08-09 00:00:00 Orders Only Doctor Unassigned, [place] [facility] 1..840.114 350.1.13.10 4.2.7.2.686 [id number] [facility] 2022-08-09 00:00:00 2022-08-09 00:00:00 Letter (Out) Provider, Samuel Doe Urgent Care [facility] MED[facility] OFFICE BUILDING 1.2.840.114 350.1.13.10 4.2.7.2.686 [id number] 370 [id number] [facility] 2022-06-13 11:00:00 2022-06-13 11:00:00 Ur[facility] Care [facility] 1..840.114 350.1.13.10 4.2.7.2.686 [id number] [facility] 2022-06-13 11:00:00 2022-06-13 10:50:01 Outpatient JUAN PABLO BULLOCK [facility] [id number] [facility] 2022-06-13 00:00:00 2022-06-13 00:00:00 Telephone Pietro Hills [facility] 1..840.114 350.1.13.10 4.2.7.2.686 [id number] [facility] 2022-06-12 09:10:00 2022-06-12 09:10:00 Outpatient R PIETRO HILLS [facility] [id number] [facility] 2022-06-12 09:10:00 2022-06-12 09:10:00 Outpatient R PIETRO HILLS [facility] [id number] [facility] 2022-06-12 00:00:00 2022-06-12 00:00:00 Telephone Provider, Samuel Doe Urgent Care [facility] MEDICAL OFFICE BUILDING 1..840.114 350.1.13.10 4.2.7.2.686 [id number] 370 [id number] [facility] 2022-06-11 14:00:00 2022-06-11 14:29:29 Outpatient R GEORGIE IRELAND [facility] [id number] [facility] 2022-06-11 14:00:00 2022-06-11 14:29:29 Urgent Care Beka [facility] MEDICAL OFFICE BUILDING 1..840.114 350.1.13.10 4.2.7.2.686 [id number] 370 [id number] [facility] 2022-06-11 14:00:00 2022-06-11 14:29:29 Outpatient R GEORGIE IRELAND [facility] [id number] [facility] 2022-06-06 15:01:49 2022-06-06 23:59:00 Outpatient RHEA SMITH [facility] [id number] [facility] 2022-06-06 15:01:49 2022-06-06 23:59:00 Hospital Encounter Rhea Bautista [facility] MEDICAL OFFICE BUILDING 1.840.114 350.1.13.10 4.2.7.2.686 [id number] [facility] 2022-06-06 15:01:06 2022-06-06 23:59:00 Hospital Encounter Lily [facility] MEDICAL OFFICE BUILDING 1.2840.114 350.1.13.10 4.2.7.2.686 [id number] [facility] 2022-06-06 15:01:06 2022-06-06 23:59:00 Hospital Encounter Lily [facility] MEDICAL OFFICE BUILDING 1.2840.114 350.1.13.10 4.2.7.2.686 [id number] [facility] 2022-06-06 14:40:00 2022-06-06 15:27:35 Urgent Care Lily [facility] BUILD[facility] 1.2840.114 350.1.13.10 4.2.7.2.686 [id number] 370 [id number] [facility] 2022-06-04 15:14:00 2022-06-04 16:14:00 Emergency X CHRISTIANAKELSIE WHITE [facility] ERT [id number] [facility] 2022-06-04 15:14:00 2022-06-04 16:14:00 Emergency Kelsie Treviño [facility] 1.2840.114 350.1.13.10 4.2.7.2.686 [id number] [facility] 2022-04-16 00:00:00 2022-04-16 00:00:00 Orders Only Doctor Unassigned, [place] [facility] 1.2.840.114 350.1.13.10 4.2.7.2.686 [id number] [facility] 2022-03-20 00:00:00 2022-03-20 00:00:00 Telephone Georgie Regalado [facility] 1..840.114 350.1.13.10 4.2.7.2.686 [id number] 225 [id number] [facility] 2022-03-16 00:00:00 2022-03-16 00:00:00 Patient Secure Msg Doctor Unassigned, [place] [facility] 1..840.114 350.1.13.10 4.2.7.2.686 [id number] [facility] 2022-02-27 11:20:00 2022-02-27 11:45:22 Office Visit Imani Dunn [facility] 1..840.114 350.1.13.10 4.2.7.2.686 [id number] [facility] 2022-02-27 11:20:00 2022-02-27 11:45:22 Outpatient IMANI CRUZ [facility] [id number] [facility] 2022-02-27 11:20:00 2022-02-27 11:20:00 Outpatient IMANI CRUZ [facility] [id number] [facility] 2022-02-21 08:20:00 2022-02-21 08:20:00 Outpatient IMANI CRUZ [facility] [id number] [facility] 2022-02-17 15:40:00 2022-02-17 16:04:11 Outpatient R JUAN PABLO CAMERON [facility] [id number] [facility] 2022-02-17 15:40:00 2022-02-17 16:04:11 Urgent Care Juan Pablo Cameron Kimberly J [facility] 1..840.114 350.1.13.10 4.2.7.2.686 [id number] 370 [id number] [facility] 2022-02-17 00:00:00 2022-02-17 00:00:00 Letter (Out) [facility] 1.840.114 350.1.13.10 4.2.7.2.686 [id number] 370 [id number] [facility] 2022-01-27 00:00:00 2022-01-27 00:00:00 Orders Only Doctor Unassigned, [place] [facility] 1..114 350.1.13.10 4.2.7.2.686 [id number] [facility] 2022-01-16 00:00:00 2022-01-16 00:00:00 Telephone Georgie Regalado [facility] 1.84.114 350.1.13.10 4.2.7.2.686 [id number] [facility] 2022-01-02 20:40:00 2022-01-02 21:01:27 Outpatient R JONATHAN HAMMAD [facility] [id number] [facility] 2022-01-02 20:40:00 2022-01-02 21:01:27 Urgent Care Rhea Bauitsta [facility] MEDICAL OFFICE BUILDING 1.840.114 350.1.13.10 4.2.7.2.686 [id number] 370 [id number] [facility] 2021-11-29 12:40:00 2021-11-29 13:31:45 Outpatient R JUAN PABLO CAMERON [facility] [id number] [facility] 2021-10-10 00:00:00 2021-10-10 00:00:00 Letter (Out) Fredi Wright [facility] 1.84.114 350.1.13.10 4.2.7.2.686 [id number] [facility] 2021-10-10 00:00:00 2021-10-10 00:00:00 Patient Secure Msg Doctor Unassigned, [place] [facility] 1..114 350.1.13.10 4.2.7.2.686 [id number] [facility] 2021-10-10 00:00:00 2021-10-10 00:00:00 Telephone Unknown, Attending [facility] 1.114 350.1.13.10 4.2.7.2.686 [id number] 370 [id number] [facility] 2021-10-09 20:30:00 2021-10-09 20:45:00 Laboratory Only Only, Ang Db Test Beka Georgie [facility] 1.114 350.1.13.10 4.2.7.2.686 [id number] [facility] 2021-10-09 20:30:00 2021-10-09 20:30:00 Outpatient GEORGIE KOTHARI [facility] [id number] [facility] 2021-10-05 16:30:00 2021-10-05 16:30:00 Outpatient JOE TRAMMELL [facility] [id number] [facility] 2021-10-05 16:30:00 2021-10-05 16:30:00 Laboratory Only Only, Adc Pob2 Test Joe Wheeler [facility] 1.84114 350.1.13.10 4.2.7.2.686 [id number] [facility] 2021-10-05 00:00:00 2021-10-05 00:00:00 Telephone Provider, [facility] 1..114 350.1.13.10 4.2.7.2.686 [id number] [id number] [facility] 2021-09-27 00:00:00 2021-09-27 00:00:00 Letter (Out) Annita Recio [facility] 1.84.114 350.1.13.10 4.2.7.2.686 [id number] [id number] [facility] 2021-09-27 00:00:00 2021-09-27 00:00:00 Patient Secure Msg Doctor Unassigned, [place] [facility] 1..114 350.1.13.10 4.2.7.2.686 [id number] [id number] [facility] 2021-09-26 15:00:00 2021-09-26 16:24:52 Outpatient R [facility]ON[facility]AN [facility] [id number] [facility] 2021-09-26 15:00:00 2021-09-26 15:20:00 Urgent Care Rhea Bautista, [facility] 1.84.114 350.1.13.10 4.2.7.2.686 [id number] 370 [id number] [facility] 2021-09-11 00:00:00 2021-09-11 00:00:00 Orders Only Doctor Unassigned, [place] [facility] 1.114 350.1.13.10 4.2.7.2.686 [id number] [facility] 2021-08-24 10:03:19 2021-08-24 10:18:19 Billing Encounter Georgie Regalado [facility] 1.84.114 350.1.13.10 4.2.7.2.686 [id number] [facility] 2021-08-24 10:15:00 2021-08-24 10:15:00 Outpatient GEORGIE SKELTON [facility] [id number] [facility] 2021-08-24 10:15:00 2021-08-24 10:15:00 [facility] [id number] [facility] 2021-08-24 08:02:38 2021-08-24 09:07:34 [facility] 1.2.840.114 350.1.13.10 4.2.7.2.686 [id number] 225 [id number] [facility] 2021-08-24 08:00:00 2021-08-24 08:00:00 Outpatient GEORGIE SKELTON [facility] [id number] [facility] 2021-08-24 00:00:00 2021-08-24 00:00:00 Letter (Out) Imani Dunn [facility] 1..840.114 350.1.13.10 4.2.7.2.686 [id number] 225 [id number] [facility] 2021-08-03 00:00:00 2021-08-03 00:00:00 Telephone Imani Dunn [facility] 1..840.114 350.1.13.10 4.2.7.2.686 [id number] 225 [id number] [facility] 2021-08-01 00:00:00 2021-08-01 00:00:00 Letter (Out) Annita Recio [facility] 1.84.114 350.1.13.10 4.2.7.2.686 [id number] [facility] 2021-08-01 00:00:00 2021-08-01 00:00:00 Patient Secure Msg Doctor Unassigned, [place] [facility] 1.2.114 350.1.13.10 4.2.7.2.686 [id number] 019 [id number] [facility] 2021-07-31 19:08:59 2021-07-31 19:23:59 Laboratory Only Only, [facility] 1.2.840.114 350.1.13.10 4.2.7.2.686 [id number] [facility] 2021-07-31 19:00:00 2021-07-31 19:00:00 Outpatient R NAVNEET [facility] [id number] [facility] 2021-07-31 00:00:00 2021-07-31 00:00:00 Orders Only Doctor Unassigned, [place] [facility] 1.840.114 350.1.13.10 4.2.7.2.686 [id number] [id number] [facility] 2021-07-31 00:00:00 2021-07-31 00:00:00 Letter (Out) Provider, Samuel [facility] 1.2840.114 350.1.13.10 4.2.7.2.686 [id number] 370 [id number] [facility] 2021-07-05 00:00:00 2021-07-05 00:00:00 Telephone Imani Dunn [facility] 1.2.840.114 350.1.13.10 4.2.7.2.686 [id number] [facility] 2021-01-12 16:15:00 2021-01-12 16:15:00 Outpatient R ARCADIO REESE [facility] [id number] [facility] 2020-12-09 00:00:00 2020-12-09 00:00:00 Telephone Angie Reesenathan [facility] 1.2.840.114 350.1.13.10 4.2.7.2.686 [id number] [facility] 2020-12-08 13:00:00 2020-12-08 13:00:00 Outpatient R ARCADIO REESE [facility] [id number] [facility] 2020-11-17 12:54:37 2020-11-17 13:51:40 Office Visit Angie Reesenathan [facility] 1.840.114 350.1.13.10 4.2.7.2.686 [id number] [facility] 2020-11-17 13:15:00 2020-11-17 13:15:00 [facility] [id number] 2020-07-28 13:00:04 2020-07-28 13:35:41 Office Visit Imani Dunn [facility] 1.840.114 350.1.13.10 4.2.7.2.686 [id number] [facility] 2020-07-28 13:00:00 2020-07-28 13:00:00 Outpatient R IMANI DUNN [facility] [id number] [facility] 2020-07-28 00:00:00 2020-07-28 00:00:00 Orders Only Doctor Unassigned, [place] [facility] 1.84.114 350.1.13.10 4.2.7.2.686 [id number] [id number] [facility] 2020-07-28 00:00:00 2020-07-28 00:00:00 Letter (Out) Imani Dunn [facility] 1.840.114 350.1.13.10 4.2.7.2.686 [id number] 225 [id number] [facility] 2020-05-24:40:00 2020-05-25 00:32:00 Emergency Lori Balbuena [facility] 1.2.840.114 350.1.13.10 4.2.7.2.686 [id number] [id number] [facility] 2020-04-26 00:00:00 2020-04-26 00:00:00 Orders Only Doctor Unassigned, [place] [facility] 1.2.840.114 350.1.13.10 4.2.7.2.686 [id number] [id number] [facility] 2020-04-04 00:00:00 2020-04-04 00:00:00 Telephone Imani Dunn [facility] 1.2840.114 350.1.13.10 4.2.7.2.686 [id number] [facility] 2020-03-18 00:00:00 2020-03-18 00:00:00 [facility] 1.2840.114 350.1.13.10 4.2.7.2.686 [id number] 225 [id number] [facility] 2019-12-30 00:00:00 2019-12-30 00:00:00 Orders Only Doctor Unassigned, [place] [facility] 1.2840.114 350.1.13.10 4.2.7.2.686 [id number] [id number] [facility] 2019-12-21 00:00:00 2019-12-21 00:00:00 Telephone [facility] 1.2840.114 350.1.13.10 4.2.7.2.686 [id number] 225 [id number] [facility] 2019-12-18 00:00:00 2019-12-18 00:00:00 Telephone Imani Dunn [facility] 1.2.840.114 350.1.13.10 4.2.7.2.686 [id number] 225 [id number] [facility] 2019-11-11 19:59:52 2019-11-11 20:14:52 Urgent Care Yvette Ware Unknown, [facility] 1.2.840.114 350.1.13.10 4.2.7.2.686 [id number] 370 [id number] [facility] 2019-10-28 19:24:14 2019-10-28 20:05:23 Urgent Care Yvette Ware Unknown, Attending [facility] 1.2.840.114 350.1.13.10 4.2.7.2.686 [id number] [facility] 2019-06-02 17:11:46 2019-06-02 19:30:00 Emergency Star Machado [facility] 1.2.840.114 350.1.13.10 4.2.7.2.686 [id number] 084 [id number] [facility] 2019-06-02 00:00:00 2019-06-02 00:00:00 Telephone Imani Dunn [facility] 1.2.840.114 350.1.13.10 4.2.7.2.686 [id number] 225 [id number] [facility] Results Test Description Test Time Test Comments Results Result Comments Source CT ABDOMEN PELVIS WO CONTRAST 10:32:24 CT ABDOMEN AND PELVIS WITHOUT IV CONTRAST ORDERING PHYSICIAN: HOLLY SHUKLA HISTORY: Flank pain, acute TECHNIQUE: Multiple axial CT images of the abdomen and pelvis were obtainedwithout IV or PO contrast. CT scan performed according to ALARA (As low asreasonably achievable) principles. COMPARISON: 08/15/2023 CT abdomen and pelvis FINDINGS: Heart size is normal. Lower lungs are clear. The liver, gallbladder,pancreas, spleen, and adrenals are unremarkable. Small nonobstructivestones are seen in the right kidney. There is no right-sidedhydronephrosi s. There is mild left-sided hydronephrosis and there is anobstructive stone within the proximal left ureter, measuring 7 mm. There is no free fluid. The bones are unremarkable. [facility] WITH [id number] 09:51:51* Test Item Value Reference Range Interpretation Comme nts WBC (test code = 6690-2) 9.21 4.20-10.70 RBC (test code = 789-8) 5.09 4.26-5.52 HGB (test code = 718-7) 15.0 g/dL 12.2-16.4 HCT (test code = 4544-3) 45.5 % 38.4-49.3 MCV (test code = 787-2) 89.4 fL 81.7-95.6 MCH (test code = 785-6) 29.5 pg 26.1-32.7 MCHC (test code = 786-4) 33.0 g/dL 31.2-35.0 RDW-SD (test code = 93793-9) 41.6 fL 38.5-51.6 RDW-CV (test code = 788-0) 12.7 % 12.1-15.4 PLT (test code = 777-3) 235 150-328 MPV (test code = 05293-5) 12.7 fL 9.8-13.0 NRBC/100 WBC (test code = 2740983371) 0.0 0.0-10.0 NRBC x10^3 (test code = 0691918892) See_Comment [Automated messa ge] The system which generated this result transmitted reference range: 10*3/?L. The reference range was not used to interpret this result as normal/abnormal. GRAN MAT (NEUT) % (test code = 770-8) 45.7 % IMM GRAN % (test code = 0684617626) 0.20 % LYMPH % (test code = 736-9) 40.7 % MONO % (test code = 5905-5) 9.8 % EOS % (test code = 713-8) 3.1 % BASO % (test code = 706-2) 0.5 % GRAN MAT x10^3(ANC) (test code = 9675524341) 4.20 10*3/uL 1.99-6.95 IMM GRAN x10^3 (test code = 5463803408) 0.00-0.06 LYMPH x10^3 (test code = 731-0) 3.75 10*3/uL 1.09-3.23 H MONO x10^3 (test code = 742-7) 0.90 10*3/uL 0.36-1.02 EOS x10^3 (test code = 711-2) 0.29 10*3/uL 0.06-0.53 BASO x10^3 (test code = 704-7) 0.05 10*3/uL 0.01-0.09 Lab Interpretation (test code = 67641-6) [facility]normal [facility] [id number] 09:30:59Ordering physician: TIMOTHY LOPEZ Indication: Shortness of breath Comparison: None Technical quality: Adequate Findings: Single AP view of the chest. The cardiopericardial silhouette iswithin normallimits. The lungs are clear bilaterally. The visualized bonythorax is intact.[facility] WITH [id number] 18:52:29* Test Item Value Reference Range Interpretation Comme nts WBC (test code = 6690-2) 6.79 See_Comment [Automated OSSIANIXa ge] The system which generated this result transmitted reference range: 4.50 - 13.50 10*3/?L. The reference range was not used to interpret this result as normal/abnormal. RBC (test code = 789-8) 4.96 See_Comment [Automated OSSIANIXa ge] The system which generated this result transmitted reference range: 4.50 - 5.30 10*6/?L. The reference range was not used to interpret this result as normal/abnormal. HGB (test code = 718-7) 15.0 g/dL 13.0-16.0 HCT (test code = 4544-3) 43.4 % 37.0-49.0 MCV (test code = 787-2) 87.5 fL 78.0-95.0 MCH (test code = 785-6) 30.2 pg 26.0-32.0 MCHC (test code = 786-4) 34.6 g/dL 32.0-36.0 RDW-SD (test code = 16120-2) 40.7 fL 38.5-49.0 RDW-CV (test code = 788-0) 12.6 % 11.5-14.0 PLT (test code = 777-3) 235 See_Comment [Automated messa ge] The system which generated this result transmitted reference range: 133 - 320 10*3/?L. The reference range was not used to interpret this result as normal/abnormal. MPV (test code = 81208-0) 12.5 fL 9.3-12.9 NRBC/100 WBC (test code = 3056748805) 0.0 See_Comment [Automated me ssage] The system which generated this result transmitted reference range: 0.0 - 10.0 /100 WBCs. The reference range was not used to interpret this result as normal/abnormal. NRBC x10^3 (test code = 6987719588) See_Comment [Automated me ssage] The system which generated this result transmitted reference range: 10*3/?L. The reference range was not used to interpret this result as normal/abnormal. GRAN MAT (NEUT) % (test code = 770-8) 57.6 % IMM GRAN % (test code = 4046070450) 0.30 % LYMPH % (test code = 736-9) 33.4 % MONO % (test code = 5905-5) 6.2 % EOS % (test code = 713-8) 1.9 % BASO % (test code = 706-2) 0.6 % GRAN MAT x10^3(ANC) (test code = 9970908891) 3.91 10*3/uL 1.50-10.30 IMM GRAN x10^3 (test code = 9800364279) 0.00-0.06 LYMPH x10^3 (test code = 731-0) 2.27 10*3/uL 0.70-7.40 MONO x10^3 (test code = 742-7) 0.42 10*3/uL 0.00-0.50 EOS x10^3 (test code = 711-2) 0.13 10*3/uL 0.00-0.40 BASO x10^3 (test code = 704-7) 0.04 10*3/uL 0.00-0.10 [facility] (24179)2023-08-15 18:17:44* Test Item Value Reference Range Interpretation Comme nts NA (test code = 7405475316) 141 mmol/L 135-145 K (test code = 0975621505) 4.2 mmol/L 3.5-5.0 CL (test code = 4389537017) 102 mmol/L 98-108 CO2 TOTAL (test code = 1092233533) 30 mmol/L 23-31 AGAP (test code = 8962630917) 9 2-16 BUN (test code = 7755149415) 14 mg/dL 7-23 GLUCOSE (test code = 2521188022) 92 mg/dL 70-110 CREATININE (test code = 6492909691) 0.70 mg/dL 0.60-1.25 TOTAL BILI (test code = 4734729417) 0.6 mg/dL 0.1-1.1 CALCIUM (test code = 7652210630) 9.7 mg/dL 8.6-10.6 T PROTEIN (test code = 0436535422) 7.9 g/dL 6.3-8.2 ALBUMIN (test code = 9315604801) 4.8 g/dL 3.5-5.0 ALK PHOS (test code = 3709079291) 53 U/L 34-122 ALTv (test code = 1742-6) 25 U/L 5-50 AST(SGOT) (test code = 9002189279) 27 U/L 13-40 eGFR (test code = 43348-1) 137.0 mL/min/1.73m2 CKD-EPI eGFR (20 21). Assuming creatinine has been stable day-to-day for at least three months, the eGFR indicates Category G1 (>= 90 mL/min/1.73 m2) [facility] Center[facility]2023 18:17:24* Test Item Value Reference Range Interpretation Comme nts LIPASE (test code = 0999776607) 32 U/L 0-220 Lab Interpretation (test cod e = 80387-7) Normal [facility] [id number] 13:02:45* Test Item Value Reference Range Interpretation Comme nts SPUTUM CULTURE (test code = 622-1) 1+ Respiratory marcelo: Commensal upper respiratory microorganisms only. Gram stain (test code = 664-3) Occasional (Rare) Polymorphonuclear leukocytes HEBERT (test code = HEBERT) Bacterial pathogens associated with lower respiratory infections were not identified, which include Pseudomonas aeruginosa and Staphylococcus aureus (MRSA or MSSA). [facility] WITH [id number] 17:04:26* Test Item Value Reference Range Interpretation Comme nts WBC (test code = 6690-2) 16.34 See_Comment H [Automated OSSIANIXa ge] The system which generated this result transmitted reference range: 4.50 - 13.50 10*3/?L. The reference range was not used to interpret this result as normal/abnormal. RBC (test code = 789-8) 4.87 See_Comment [Automated OSSIANIXa ge] The system which generated this result transmitted reference range: 4.50 - 5.30 10*6/?L. The reference range was not used to interpret this result as normal/abnormal. HGB (test code = 718-7) 14.6 g/dL 13.0-16.0 HCT (test code = 4544-3) 42.1 % 37.0-49.0 MCV (test code = 787-2) 86.4 fL 78.0-95.0 MCH (test code = 785-6) 30.0 pg 26.0-32.0 MCHC (test code = 786-4) 34.7 g/dL 32.0-36.0 RDW-SD (test code = 75860-8) 39.4 fL 38.5-49.0 RDW-CV (test code = 788-0) 12.3 % 11.5-14.0 PLT (test code = 777-3) 422 See_Comment H Platelet clumpin g observed. Sodium citrate protocol used to obtain accurate platelet count. [Automated message] The system which generated this result transmitted reference range: 133 - 320 10*3/?L. The reference range was not used to interpret this result as normal/abnormal. MPV (test code = 56447-7) 12.6 fL 9.3-12.9 IPF % (test code = 1770852371) 14.4 % 0.0-7.4 H Platelet count measured by fluorescence method. NRBC/100 WBC (test code = 3347347557) 0.0 See_Comment [Automated Advaction ssage] The system which generated this result transmitted reference range: 0.0 - 10.0 /100 WBCs. The reference range was not used to interpret this result as normal/abnormal. NRBC x10^3 (test code = 3620462349) See_Comment [Automated OSSIANIXa ge] The system which generated this result transmitted reference range: 10*3/?L. The reference range was not used to interpret this result as normal/abnormal. SEG % (test code = 35802-8) 78 % 33-76 H BAND % (test code = 22494-9) 7 % 0-1 H META % (test code = 20889-6) 1 % <=0 H MYELO % (test code = 60629-5) 4 % <=0 H LYMPH % (test code = 98293-7) 6 % 15-55 L REACT LYMPH % (test code = 4743145670) 1 % MONO % (test code = 10011-6) 3 % 0-4 ANC (test code = 753-4) 13.89 10*3/uL 1.50-10.30 H Lab Interpretation (test code = 89912-0) Abnormal [facility] WITHOUT [id number] 10:37:25* Test Item Value Reference Range Interpretation Comme nts WBC (test code = 6690-2) 13.15 See_Comment [Automated OSSIANIXa ge] The system which generated this result transmitted reference range: 4.50 - 13.50 10*3/?L. The reference range was not used to interpret this result as normal/abnormal. RBC (test code = 789-8) 4.82 See_Comment [Automated message] The system which generated this result transmitted reference range: 4.50 - 5.30 10*6/?L. The reference range was not used to interpret this result as normal/abnormal. HGB (test code = 718-7) 14.5 g/dL 13.0-16.0 HCT (test code = 4544-3) 42.1 % 37.0-49.0 MCH (test code = 785-6) 30.1 pg 26.0-32.0 MCV (test code = 787-2) 87.3 fL 78.0-95.0 MCHC (test code = 786-4) 34.4 g/dL 32.0-36.0 PLT (test code = 777-3) 290 See_Comment [Automated message] The system which generated this result transmitted reference range: 133 - 320 10*3/?L. The reference range was not used to interpret this result as normal/abnormal. MPV (test code = 33966-7) 12.1 fL 9.3-12.9 RDW-CV (test code = 788-0) 12.5 % 11.5-14.0 RDW-SD (test code = 90767-7) 39.8 fL 38.5-49.0 NRBC x10^3 (test code = 5484209006) See_Comment [Automated OSSIANIXa ge] The system which generated this result transmitted reference range: 10*3/?L. The reference range was not used to interpret this result as normal/abnormal. NRBC/100 WBC (test code = 6225194706) 0.0 See_Comment [Automated OSSIANIXa ge] The system which generated this result transmitted reference range: 0.0 - 10.0 /100 WBCs. The reference range was not used to interpret this result as normal/abnormal. IPF % (test code = 6144385493) 13.4 % 0.0-7.4 H Platelet count measured by fluorescence method. Lab Interpretation (test code = 27717-1) Abnormal [facility] WITH [id number] 09:03:58* Test Item Value Reference Range Interpretation Comme nts WBC (test code = 6690-2) 12.76 See_Comment [Automated OSSIANIXa ge] The system which generated this result transmitted reference range: 4.50 - 13.50 10*3/?L. The reference range was not used to interpret this result as normal/abnormal. RBC (test code = 789-8) 4.79 See_Comment [Automated OSSIANIXa ge] The system which generated this result transmitted reference range: 4.50 - 5.30 10*6/?L. The reference range was not used to interpret this result as normal/abnormal. HGB (test code = 718-7) 14.6 g/dL 13.0-16.0 HCT (test code = 4544-3) 42.3 % 37.0-49.0 MCV (test code = 787-2) 88.3 fL 78.0-95.0 MCH (test code = 785-6) 30.5 pg 26.0-32.0 MCHC (test code = 786-4) 34.5 g/dL 32.0-36.0 RDW-SD (test code = 19513-2) 41.1 fL 38.5-49.0 RDW-CV (test code = 788-0) 12.7 % 11.5-14.0 PLT (test code = 777-3) 139 See_Comment [Automated messa ge] The system which generated this result transmitted reference range: 133 - 320 10*3/?L. The reference range was not used to interpret this result as normal/abnormal. MPV (test code = 69540-4) 12.3 fL 9.3-12.9 NRBC/100 WBC (test code = 6009164255) 0.0 See_Comment [Automated Advaction ssage] The system which generated this result transmitted reference range: 0.0 - 10.0 /100 WBCs. The reference range was not used to interpret this result as normal/abnormal. NRBC x10^3 (test code = 6949517350) See_Comment [Automated OSSIANIXa ge] The system which generated this result transmitted reference range: 10*3/?L. The reference range was not used to interpret this result as normal/abnormal. SEG % (test code = 92020-1) 61 % 33-76 BAND % (test code = 53127-4) 4 % 0-1 H LYMPH % (test code = 90161-9) 20 % 15-55 MONO % (test code = 17946-1) 11 % 0-4 H EOS % (test code = 45835-7) 4 % 0-3 H ANC (test code = 753-4) 8.29 10*3/uL 1.50-10.30 Lab Interpretation (test code = 67404-6) Abnormal [facility] WITH [id number] 02:50:59* Test Item Value Reference Range Interpretation Comme nts WBC (test code = 6690-2) 19.99 See_Comment H [Automated message] The system which generated this result transmitted reference range: 4.50 - 13.50 10*3/?L. The reference range was not used to interpret this result as normal/abnormal. RBC (test code = 789-8) 5.08 See_Comment [Automated message] The system which generated this result transmitted reference range: 4.50 - 5.30 10*6/?L. The reference range was not used to interpret this result as normal/abnormal. HGB (test code = 718-7) 15.6 g/dL 13.0-16.0 HCT (test code = 4544-3) 45.1 % 37.0-49.0 MCV (test code = 787-2) 88.8 fL 78.0-95.0 MCH (test code = 785-6) 30.7 pg 26.0-32.0 MCHC (test code = 786-4) 34.6 g/dL 32.0-36.0 RDW-SD (test code = 19345-8) 38.8 fL 38.5-49.0 RDW-CV (test code = 788-0) 11.9 % 11.5-14.0 PLT (test code = 777-3) 258 See_Comment [Automated message] The system which generated this result transmitted reference range: 133 - 320 10*3/?L. The reference range was not used to interpret this result as normal/abnormal. MPV (test code = 40567-0) 12.6 fL 9.3-12.9 NRBC/100 WBC (test code = 4192033165) 0.0 See_Comment [Automated message] The system which generated this result transmitted reference range: 0.0 - 10.0 /100 WBCs. The reference range was not used to interpret this result as normal/abnormal. NRBC x10^3 (test code = 8446801274) See_Comment [Automated message] The system which generated this result transmitted reference range: 10*3/?L. The reference range was not used to interpret this result as normal/abnormal. GRAN MAT (NEUT) % (test code = 770-8) 90.6 % IMM GRAN % (test code = 8058414019) 0.90 % LYMPH % (test code = 736-9) 4.6 % MONO % (test code = 5905-5) 3.4 % EOS % (test code = 713-8) 0.2 % BASO % (test code = 706-2) 0.3 % GRAN MAT x10^3(ANC) (test code = 8492091554) 18.14 10*3/uL 1.50-10.30 H IMM GRAN x10^3 (test code = 3608633721) 0.17 10*3/uL 0.00-0.06 H LYMPH x10^3 (test code = 731-0) 0.91 10*3/uL 0.70-7.40 MONO x10^3 (test code = 742-7) 0.67 10*3/uL 0.00-0.50 H EOS x10^3 (test code = 711-2) 0.04 10*3/uL 0.00-0.40 BASO x10^3 (test code = 704-7) 0.06 10*3/uL 0.00-0.10 Lab Interpretation (test code = 09515-2) Abnormal [facility] Whole [id number] 02:45:16* Test Item Value Reference Range Interpretation Comme nts LACTIC ACID (test code = 0273971501) 1.59 mmol/L 0.50-2.20 Lab Interpretation (test cod e = 11523-0) Normal [facility] (02171)2023-05-25 02:18:54* Test Item Value Reference Range Interpretation Comme nts NA (test code = 5193757093) 138 mmol/L 135-145 K (test code = 8810655063) 3.7 mmol/L 3.5-5.0 CL (test code = 1600451127) 97 mmol/L 98-108 L CO2 TOTAL (test code = 8727498891) 33 mmol/L 23-31 H AGAP (test code = 6709831179) 8 2-16 BUN (test code = 2349460360) 12 mg/dL 7-23 GLUCOSE (test code = 8926425227) 141 mg/dL 70-110 H CREATININE (test code = 9778328431) 0.80 mg/dL 0.60-1.25 TOTAL BILI (test code = 5999084089) 1.4 mg/dL 0.1-1.1 H CALCIUM (test code = 3639518431) 10.1 mg/dL 8.6-10.6 T PROTEIN (test code = 1319429141) 9.0 g/dL 6.3-8.2 H ALBUMIN (test code = 8662980408) 4.6 g/dL 3.5-5.0 ALK PHOS (test code = 8155318906) 88 U/L 34-122 ALTv (test code = 1742-6) 26 U/L 5-50 AST(SGOT) (test code = 7165604914) 36 U/L 13-40 eGFR (test code = 9308157568) 125.9 mL/min/1.73m2 HEBERT (test code = HEBERT) Association of Glomerular Filtration Rate (GFR) and Staging of Kidney Disease* + --+ --+ ------+| GFR (mL/min/1.73 m2) ?| With Kidney Damage ?| ?Without Kidney Damage+ --------+ --------+ +| ?>90 ?| ?Stage one ?| ? Normal ?+ ---+ ---+ -------+| ?60-89 ?| ?Stage two ?| ? Decreased GFR ? + --+ --+ ------+| ?30-59 ?| ?Stage three ?| ? Stage three ? + --+ --+ ------+| ?15-29 ?| ?Stage four ? | ? Stage four ?+ ---+ ---+ -------+| ?<15 (or dialysis) ? ?| ?Stage five ? | ? Stage five ?+ ---+ ---+ -------+ *Each stage assumes the associated GFR level has been in effect for at least three months. ?Stages 1 to 5, with or without kidney disease, indicate chronic kidney disease. Notes: Determination of stages one and two (with eGFR >59mL/min/1.73 m2) requires estimation of kidney damage for at least three months as defined by structural or functional abnormalities of the kidney, manifested by either:Pathological abnormalities or Markers of kidney damage (including abnormalities in the composition of the blood or urine or abnormalities in imaging tests). Lab Interpretation (test code = 58181-8) [facility] Test Item Value Reference Range Interpretation Comme nts LIPASE (test code = 6676436278) 11 U/L 0-220 Lab Interpretation (test cod e = 47831-1) Normal [facility] SARS-COV-2 ANTIGEN (BINAX NOW)2023-05-24 01:57:00* Test Item Value Reference Range Interpretation Comme nts POCT SARS-COV-2 ANTIGEN (margarita t code = 40641-3) Not Detected Not Detected On board controls acceptable with C Line (test code = 3574) Yes [facility] MOLECULAR [id number] 01:51:51* Test Item Value Reference Range Interpretation Comme nts POCT Molecular Strep (test c ode = 76366-1) Negative Negative Lab Interpretation (test cod e = 63726-1) Normal [facility] URINALYSIS, [id number] 14:37:00 * Test Item Value Reference Range Interpretation Comme nts POCT U SP GRAV (test code = 3255) 1.020 mg/dl 1.005-1.025 POCT PH U (test code = 3254) 7.0 mg/dl 5-8 POCT U LEUK EST (test code = 3263) negative Negative - Negative POCT U NIT (test code = 3262) negative Negative - Negati ve POCT U PROT (test code = 3259) trace Negative - Negative POCT U GLU (test code = 3256) negative Negative - Negati ve POCT U KETONE (test code = 3258) negative Negative - Negative POCT U UROBILI (test code = 3260) 1.0 mg/dl 0.2-1 POCT U BILI (test code = 3261) negative Negative - Negative POCT U BLD (test code = 3257) trace Negative - Negati ve POCT U COLOR (test code = 3266) POCT U APPEAR (test code = 3267) [facility] URINALYSIS, [id number] 14:37:00 * Test Item Value Reference Range Interpretation Comme nts POCT U SP GRAV (test code = 3255) 1.020 mg/dl 1.005-1.025 POCT PH U (test code = 3254) 7.0 mg/dl 5-8 POCT U LEUK EST (test code = 3263) negative Negative - Negative POCT U NIT (test code = 3262) negative Negative - Negati ve POCT U PROT (test code = 3259) trace Negative - Negative POCT U GLU (test code = 3256) negative Negative - Negati ve POCT U KETONE (test code = 3258) negative Negative - Negative POCT U UROBILI (test code = 3260) 1.0 mg/dl 0.2-1 POCT U BILI (test code = 3261) negative Negative - Negative POCT U BLD (test code = 3257) trace Negative - Negati ve POCT U COLOR (test code = 3266) POCT U APPEAR (test code = 3267) [facility] with [id number] 12:13:46* Test Item Value Reference Range Interpretation Comme nts WBC (test code = 6690-2) 15.76 See_Comment H [Automated [employer]] The system which generated this result transmitted reference range: 4.50 - 13.50 10*3/?L. The reference range was not used to interpret this result as normal/abnormal. RBC (test code = 789-8) 5.28 See_Comment [Only [employer]] The system which generated this result transmitted reference range: 4.50 - 5.30 10*6/?L. The reference range was not used to interpret this result as normal/abnormal. HGB (test code = 718-7) 16.0 g/dL 13.0-16.0 HCT (test code = 4544-3) 47.6 % 37.0-49.0 MCV (test code = 787-2) 90.2 fL 78.0-95.0 MCH (test code = 785-6) 30.3 pg 26.0-32.0 MCHC (test code = 786-4) 33.6 g/dL 32.0-36.0 RDW-SD (test code = 45980-2) 42.5 fL 38.5-49.0 RDW-CV (test code = 788-0) 12.8 % 11.5-14.0 PLT (test code = 777-3) 207 See_Comment [Automated OSSIANIXa ge] The system which generated this result transmitted reference range: 133 - 320 10*3/?L. The reference range was not used to interpret this result as normal/abnormal. MPV (test code = 72013-2) 13.3 fL 9.3-12.9 H IPF % (test code = 4898119039) 15.8 % 0.0-7.4 H Platelet count measured by fluorescence method. NRBC/100 WBC (test code = 3785549723) 0.0 See_Comment [Automated [employer]age] The system which generated this result transmitted reference range: 0.0 - 10.0 /100 WBCs. The reference range was not used to interpret this result as normal/abnormal. NRBC x10^3 (test code = 3450560645) See_Comment [Automated OSSIANIXa ge] The system which generated this result transmitted reference range: 10*3/?L. The reference range was not used to interpret this result as normal/abnormal. GRAN MAT (NEUT) % (test code = 770-8) 78.9 % IMM GRAN % (test code = 3666317580) 0.40 % LYMPH % (test code = 736-9) 15.3 % MONO % (test code = 5905-5) 4.8 % EOS % (test code = 713-8) 0.3 % BASO % (test code = 706-2) 0.3 % GRAN MAT x10^3(ANC) (test code = 8082462873) 12.45 10*3/uL 1.50-10.30 H IMM GRAN x10^3 (test code = 3582869201) 0.07 10*3/uL 0.00-0.06 H LYMPH x10^3 (test code = 731-0) 2.41 10*3/uL 0.70-7.40 MONO x10^3 (test code = 742-7) 0.75 10*3/uL 0.00-0.50 H EOS x10^3 (test code = 711-2) 0.04 10*3/uL 0.00-0.40 BASO x10^3 (test code = 704-7) 0.04 10*3/uL 0.00-0.10 Lab Interpretation (test code = 38857-0) [facility] (12450)2022-12-23 15:14:14* Test Item Value Reference Range Interpretation Comme nts NA (test code = 3859049614) 140 mmol/L 135-145 K (test code = 3718251608) 4.1 mmol/L 3.5-5.0 CL (test code = 8373468790) 102 mmol/L 98-108 CO2 TOTAL (test code = 4016941503) 28 mmol/L 23-31 AGAP (test code = 3968007925) 10 2-16 BUN (test code = 8726625713) 8 mg/dL 7-23 GLUCOSE (test code = 7433195017) 99 mg/dL 70-110 CREATININE (test code = 8932089752) 0.73 mg/dL 0.60-1.25 TOTAL BILI (test code = 3542025102) 0.7 mg/dL 0.1-1.1 CALCIUM (test code = 3345393252) 9.4 mg/dL 8.6-10.6 T PROTEIN (test code = 1120327625) 7.0 g/dL 6.3-8.2 ALBUMIN (test code = 8304441170) 4.5 g/dL 3.5-5.0 ALK PHOS (test code = 4252439069) 68 U/L 34-122 ALTv (test code = 1742-6) 34 U/L 5-50 AST(SGOT) (test code = 2176639822) 46 U/L 13-40 H eGFR (test code = 5229273376) 139.9 mL/min/1.73m2 HEBERT (test code = HEBERT) Association of Glomerular Filtration Rate (GFR) and Staging of Kidney Disease* + --+ --+ ------+| GFR (mL/min/1.73 m2) ?| With Kidney Damage ?| ?Without Kidney Damage+ --------+ --------+ +| ?>90 ?| ?Stage one ?| ? Normal ?+ ---+ ---+ -------+| ?60-89 ?| ?Stage two ?| ? Decreased GFR ? + --+ --+ ------+| ?30-59 ?| ?Stage three ?| ? Stage three ? + --+ --+ ------+| ?15-29 ?| ?Stage four ? | ? Stage four ?+ ---+ ---+ -------+| ?<15 (or dialysis) ? ?| ?Stage five ? | ? Stage five ?+ ---+ ---+ -------+ *Each stage assumes the associated GFR level has been in effect for at least three months. ?Stages 1 to 5, with or without kidney disease, indicate chronic kidney disease. Notes: Determination of stages one and two (with eGFR >59mL/min/1.73 m2) requires estimation of kidney damage for at least three months as defined by structural or functional abnormalities of the kidney, manifested by either:Pathological abnormalities or Markers of kidney damage (including abnormalities in the composition of the blood or urine or abnormalities in imaging tests). Lab Interpretation (test code = 52985-9) [facility]* Test Item Value Reference Range Interpretation Comme nts LIPASE (test code = 7016853180) 41 U/L 0-220 Lab Interpretation (test cod e = 98483-6) Normal [facility] WITH [id number] 14:50:14* Test Item Value Reference Range Interpretation Comme nts WBC (test code = 6690-2) 10.67 See_Comment [Automated [employer]] The system which generated this result transmitted reference range: 4.50 - 13.50 10*3/?L. The reference range was not used to interpret this result as normal/abnormal. RBC (test code = 789-8) 5.01 See_Comment [[employer]] The system which generated this result transmitted reference range: 4.50 - 5.30 10*6/?L. The reference range was not used to interpret this result as normal/abnormal. HGB (test code = 718-7) 15.2 g/dL 13.0-16.0 HCT (test code = 4544-3) 44.7 % 37.0-49.0 MCV (test code = 787-2) 89.2 fL 78.0-95.0 MCH (test code = 785-6) 30.3 pg 26.0-32.0 MCHC (test code = 786-4) 34.0 g/dL 32.0-36.0 RDW-SD (test code = 19828-5) 43.1 fL 38.5-49.0 RDW-CV (test code = 788-0) 13.1 % 11.5-14.0 PLT (test code = 777-3) 244 See_Comment [Automated messa ge] The system which generated this result transmitted reference range: 133 - 320 10*3/?L. The reference range was not used to interpret this result as normal/abnormal. MPV (test code = 58745-3) 12.9 fL 9.3-12.9 NRBC/100 WBC (test code = 0020850982) 0.0 See_Comment [Automated me ssage] The system which generated this result transmitted reference range: 0.0 - 10.0 /100 WBCs. The reference range was not used to interpret this result as normal/abnormal. NRBC x10^3 (test code = 8632842459) See_Comment [Automated messa ge] The system which generated this result transmitted reference range: 10*3/?L. The reference range was not used to interpret this result as normal/abnormal. GRAN MAT (NEUT) % (test code = 770-8) 59.4 % IMM GRAN % (test code = 8344954012) 0.30 % LYMPH % (test code = 736-9) 30.7 % MONO % (test code = 5905-5) 8.0 % EOS % (test code = 713-8) 1.1 % BASO % (test code = 706-2) 0.5 % GRAN MAT x10^3(ANC) (test code = 1622667619) 6.34 10*3/uL 1.50-10.30 IMM GRAN x10^3 (test code = 9333572098) 0.03 10*3/uL 0.00-0.06 LYMPH x10^3 (test code = 731-0) 3.28 10*3/uL 0.70-7.40 MONO x10^3 (test code = 742-7) 0.85 10*3/uL 0.00-0.50 H EOS x10^3 (test code = 711-2) 0.12 10*3/uL 0.00-0.40 BASO x10^3 (test code = 704-7) 0.05 10*3/uL 0.00-0.10 Lab Interpretation (test code = 28066-2) Abnormal [facility] URINALYSIS, [id number] 16:06:00 * Test Item Value Reference Range Interpretation Comme nts POCT U SP GRAV (test code = 3255) 1.015 mg/dl 1.005-1.025 POCT PH U (test code = 3254) 7.5 mg/dl 5-8 POCT U LEUK EST (test code = 3263) negative Negative - Negative POCT U NIT (test code = 3262) negative Negative - Negati ve POCT U PROT (test code = 3259) trace Negative - Negative POCT U GLU (test code = 3256) negative Negative - Negati ve POCT U KETONE (test code = 3258) negative Negative - Negative POCT U UROBILI (test code = 3260) 0.2 mg/dl 0.2-1 POCT U BILI (test code = 3261) small Negative - Negative POCT U BLD (test code = 3257) negative Negative - Negati ve POCT U COLOR (test code = 3266) yellow POCT U APPEAR (test code = 3267) clear [facility] URINALYSIS W SPECIFIC [id number] 02:34:00* Test Item Value Reference Range Interpretation Comme nts POCT U SP GRAV (test code = 3255) 1.020 mg/dl 1.005-1.025 POCT PH U (test code = 3254) 6 mg/dl 5-8 POCT U LEUK EST (test code = 3263) neg Negative - Negative POCT U NIT (test code = 3262) neg Negative - Negati ve POCT U PROT (test code = 3259) neg Negative - Negative POCT U GLU (test code = 3256) neg Negative - Negati ve POCT U KETONE (test code = 3258) neg Negative - Negative POCT U UROBILI (test code = 3260) neg 0.2-1 POCT U BILI (test code = 3261) neg Negative - Negative POCT U BLD (test code = 3257) neg Negative - Negati ve POCT U COLOR (test code = 3266) yellow POCT U APPEAR (test code = 3267) clear Lab Interpretation (test cod e = 61174-7) Normal [facility] URINALYSIS, [id number] 15:57:00 * Test Item Value Reference Range Interpretation Comme nts POCT U SP GRAV (test code = 3255) 1.030 mg/dl 1.005-1.025 A POCT PH U (test code = 3254) 6.5 mg/dl 5-8 POCT U LEUK EST (test code = 3263) negative Negative - Negative POCT U NIT (test code = 3262) neg Negative - Negati ve POCT U PROT (test code = 3259) negative Negative - Negative POCT U GLU (test code = 3256) negative Negative - Negati ve POCT U KETONE (test code = 3258) neg Negative - Negative POCT U UROBILI (test code = 3260) 0.2 mg/dl 0.2-1 POCT U BILI (test code = 3261) neg Negative - Negative POCT U BLD (test code = 3257) trace Negative - Negati ve POCT U COLOR (test code = 3266) yellow POCT U APPEAR (test code = 3267) clear Lab Interpretation (test cod e = 88168-4) Abnormal [facility] URINALYSIS, [id number] 15:57:00 * Test Item Value Reference Range Interpretation Comme nts POCT U SP GRAV (test code = 3255) 1.030 mg/dl 1.005-1.025 A POCT PH U (test code = 3254) 6.5 mg/dl 5-8 POCT U LEUK EST (test code = 3263) negative Negative - Negative POCT U NIT (test code = 3262) neg Negative - Negati ve POCT U PROT (test code = 3259) negative Negative - Negative POCT U GLU (test code = 3256) negative Negative - Negati ve POCT U KETONE (test code = 3258) neg Negative - Negative POCT U UROBILI (test code = 3260) 0.2 mg/dl 0.2-1 POCT U BILI (test code = 3261) neg Negative - Negative POCT U BLD (test code = 3257) trace Negative - Negati ve POCT U COLOR (test code = 3266) yellow POCT U APPEAR (test code = 3267) clear Lab Interpretation (test cod e = 65046-0) Abnormal [facility] MOLECULAR [id number] 01:27:02* Test Item Value Reference Range Interpretation Comme nts POCT Molecular FluA (test co de = 24172-0) Negative Negative POCT Molecular FluB (test co de = 84139-7) Negative Negative Lab Interpretation (test cod e = 38959-8) Normal [facility] MOLECULAR [id number] 19:31:26* Test Item Value Reference Range Interpretation Comme nts POCT Molecular FluA (test co de = 58166-4) Negative Negative POCT Molecular FluB (test co de = 94898-6) Negative Negative Lab Interpretation (test cod e = 43331-7) Normal [facility] MOLECULAR [id number] 19:24:50* Test Item Value Reference Range Interpretation Comme nts POCT Molecular Strep (test c ode = 57679-4) Negative Negative Lab Interpretation (test cod e = 30860-8) Normal [facility] History and Physical Notes Date/Time Note Provider Source 2023-05-29 07:38:10 Formatting of this n ote is different from the original. MEDICINE CLS ADMIT H&P PCP: Imani Dunn Date of Service: 05/29/2023 CHIEF COMPLAINT: Cough HISTORY OF PRESENT ILLNESS 17 yo man comes to the ED complaining of shortness of breath, cough and phlegm production for the last few days. Patient was recently diagnosed with Pneumonia and has been on antibiotics without significant improvement. Tonight worsening SOB. H/o ADHD, asthma Pt received 5 day course of antibiotics as outpt without improvement, he reports cough of yellowish sputum, no CP. He has fever. PAST MEDICAL HISTORY Past Medical History: Diagnosis Date ADHD (attention deficit hyperactivity disorder) Age 5 Y Treated with Vyvanse 30 mg daily Allergic rhinitis Alopecia 07/09/2016 Asthma Has a rescue inhaler Constipation, unspecified constipation type 07/19/2016 Urethral stricture, unspecified stricture type 09/18/2016 Urticaria of unknown origin 08/03/2019 Past Surgical History: Procedure Laterality Date ADENOIDECTOMY Age 3 - 4 Y TONSILLECTOMY Family History Problem Relation Age of Onset Neurological Father seizure disorder Lipids Father Lipids Paternal Grandmother Heart NoFHx ALLERGIES Allergies Allergen Reactions Omnicef [Cefdinir] Diarrhea MEDICATIONS No current facility-administered medications on file prior to encounter. Current Outpatient Medications on File Prior to Encounter Medication Sig Dispense Refill amoxicillin 500 mg capsule Take 2 capsules by mouth in the morning and 2 capsules at noon and 2 capsules in the evening. Do all this for 5 days. 30 capsule 0 ondansetron 4 mg disintegrating tablet Take 1 tablet by mouth every 8 (eight) hours as needed for Nausea and Vomiting (N/V). 15 tablet 0 ckjeiipttkjnvzx-nkhhwwvgcodpatp-ON (BROMFED DM) 2-30-10 mg/5 mL syrup Take 5 mL by mouth 3 (three) times daily as needed for Cold symptoms. 118 mL 0 ketorolac 10 mg tablet Take 1 tablet by mouth every 6 (six) hours as needed for Pain (scale 4-6). 20 tablet 0 tamsulosin 0.4 mg 24 hr capsule Take 1 capsule by mouth at bedtime. 14 capsule 0 traMADoL 50 mg tablet Take 1 tablet by mouth every 6 (six) hours as needed for Pain (scale 7-10). Indications: acute pain 20 tablet 0 benzonatate 100 mg capsule Take 2 capsules by mouth every 8 (eight) hours as needed for Cough. 60 capsule 0 mqmvkiwmzhxfloa-daxitefrnypusjh-RO (BROMFED DM) 2-30-10 mg/5 mL syrup Take 5 mL by mouth 4 (four) times daily as needed for Congestion/Allergies. 118 mL 0 cetirizine 10 mg tablet Take 1 tablet by mouth daily. 30 tablet 2 SOCIAL HISTORY Social History Socioeconomic History Marital status: Single Tobacco Use Smoking status: Never Passive exposure: Yes Smokeless tobacco: Never Substance and Sexual Activity Alcohol use: Never Drug use: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 of infection Outcome: Progressing as expected Problem: Respiratory Function - Impaired Goal: Able to cough effectively Outcome: Progressing as expected Goal: Adequate oxygenation Outcome: Progressing as expected Goal: Adequate work of breathing Outcome: Progressing as expected Goal: Patent airway Outcome: Progressing as expected [facility] 2023-05-31 16:55:41 Formatting of this n ote might be different from the original. Pt transferring to Room 420. Report and POC endorsed to receiving nurse. All questions and concerns answered. Pending transportation. RA [facility] Harsh Thayer RN [facility] 2023-05-31 09:52:18 Formatting of this n ote might be different from the original. Problem: Discharge Planning Goal: Adequate for discharge Outcome: Progressing as expected Goal: Effective communication Outcome: Progressing as expected Problem: Falls, Risk of Goal: Absence of falls Outcome: Progressing as expected Problem: Infection, Risk of or Actual Goal: Absence of infection Outcome: Progressing as expected Problem: Respiratory Function - Impaired Goal: Able to cough effectively Outcome: Progressing as expected Goal: Adequate oxygenation Outcome: Progressing as expected Goal: Adequate work of breathing Outcome: Progressing as expected Goal: Patent airway Outcome: Progressing as expected [facility] 2023-05-31 00:20:47 Formatting of this n ote might be different from the original. Problem: Discharge Planning Goal: Adequate for discharge Outcome: Progressing as expected Goal: Effective communication Outcome: Progressing as expected Problem: Falls, Risk of Goal: Absence of falls Outcome: Progressing as expected Problem: Infection, Risk of or Actual Goal: Absence of infection Outcome: Progressing as expected Problem: Respiratory Function - Impaired Goal: Able to cough effectively Outcome: Progressing as expected Goal: Adequate oxygenation Outcome: Progressing as expected Goal: Adequate work of breathing Outcome: Progressing as expected Goal: Patent airway Outcome: Progressing as expected [facility] Siddhartha Del Castillo RN [facility] 2023-05-30 15:31:28 Formatting of this n ote might be different from the original. Problem: Discharge Planning Goal: Adequate for discharge Outcome: Progressing as expected Goal: Effective communication Outcome: Progressing as expected Problem: Falls, Risk of Goal: Absence of falls Outcome: Progressing as expected Problem: Infection, Risk of or Actual Goal: Absence of infection Outcome: Progressing as expected Problem: Respiratory Function - Impaired Goal: Able to cough effectively Outcome: Progressing as expected Goal: Adequate oxygenation Outcome: Progressing as expected Goal: Adequate work of breathing Outcome: Progressing as expected Goal: Patent airway Outcome: Progressing as expected [facility] 2023-05-30 02:27:30 Formatting of this n ote might be different from the original. Problem: Discharge Planning Goal: Adequate for discharge Outcome: Progressing as expected Goal: Effective communication Outcome: Progressing as expected Problem: Falls, Risk of Goal: Absence of falls Outcome: Progressing as expected Problem: Infection, Risk of or Actual Goal: Absence of infection Outcome: Progressing as expected Problem: Respiratory Function - Impaired Goal: Able to cough effectively Outcome: Progressing as expected Goal: Adequate oxygenation Outcome: Progressing as expected Goal: Adequate work of breathing Outcome: Progressing as expected Goal: Patent airway Outcome: Progressing as expected [facility] 2023-05-29 06:44:11 Formatting of this n ote might be different from the original. Patient en route to [facility]. Patient is being transported on BIPAP10/5, FiO2 50%. Patient alert, warm, dry, pink upon leaving ER. [facility] 2023-05-29 06:02:43 Formatting of this n ote might be different from the original. Nurse Report Report given to Kiki ZAVALA. Chief complaint, assessment findings, infusion verify and orders reviewed. Plan of care discussed at bedside with patient and both nurses. Patient/family members verbalized understanding. KWABENA HENRIQUEZ RN [facility] 2023-05-29 05:33:43 Formatting of this n ote might be different from the original. ETA given by tom Rouse RA [facility] Renetta Najera [facility] 2023-05-29 05:30:41 Formatting of this n ote might be different from the original. [facility] ETA 30 to 35 min per Xiomara [facility] 2023-05-29 04:39:58 Formatting of this n ote might be different from the original. Placed on high flow O2 by RT- 50 liters/min, FiO2 50% . Improvement in SpO2 to 96%, respiratory ratye to 22/min [facility] 2023-05-29 04:28:19 Formatting of this n ote might be different from the original. Persistent SpO2 85-88%. Dr Anderson notified, at bedside to assess patient. RT initiating high flow O2 as requested by Dr Anderson. [facility] 2023-05-29 04:08:00 Formatting of this n ote might be different from the original. Duoneb initated by RT as ordered. [facility] 2023-05-29 04:00:00 Formatting of this n ote might be different from the original. O2 increased to 4 liters/min for persistent hypoxia 86%,increased respiratory rate 48-50 [facility] 2023-05-29 02:20:00 Formatting of this n ote might be different from the original. O2 increased to 3 liters/min via N/C for decreased SpO2 88%. [facility] 2023-05-29 02:12:12 Formatting of this n ote might be different from the original. Being treated for pneumonia for 4-5 days. SpO2 79-83% on room air at home. SpO2 84% on room air in ER. Placed on O2 at 2 liters/min. Cough productive of thick yellow sputum. RA [facility] Kwabena Henriquez RN [facility] 2023-05-29 02:02:00 Associated Order(s): Critical Care Demographics Patient Name: Desmond Guzman Date of : 2005 17 year old Treatment [facility]: [facility] Primary Care Physician: Imani Dunn [facility] Patient Escorted by: Family [5] Mode of Arrival: Personal means [1] EMS Treatment Prior to ED Arrival: ANIMAL SERVICES OFFICER treatment: None ED Events Date/Time Event User Comments 05/29/23201 Medical Screening Begins FARZANA ANDERSON MD -- 05/29/23201 First Provider Evaluation FARZANA ANDERSON MD -- Chief complaint Chief Complaint Patient presents with Shortness of Breath ED Triage Notes Kwabena Henriquez RN 05/29/2023 02:14 Being treated for pneumonia for 4-5 days. SpO2 79-83% on room air at home. SpO2 84% on room air in ER. Placed on O2 at 2 liters/min. Cough productive of thick yellow sputum. Chief Complaint Patient presents with Shortness of Breath History of present illness HPI 17 yo man comes to the ED complaining of shortness of breath, cough and phlegm production for the last few days. Patient was recently diagnosed with Pneumonia and has been on antibiotics without significant improvement. Tonight worsening SOB. H/o ADHD, asthma. Past Medical and Social History Past Medical History: Diagnosis Date ADHD (attention deficit hyperactivity disorder) Age 5 Y Treated with Vyvanse 30 mg daily Allergic rhinitis Alopecia 07/09/2016 Asthma Has a rescue inhaler Constipation, unspecified constipation type 07/19/2016 Urethral stricture, unspecified stricture type 09/18/2016 Urticaria of unknown origin 08/03/2019 Tetanus received in last 5 years: Unknown Social History Tobacco Use Smoking status: Never Passive exposure: Yes Smokeless tobacco: Never Substance Use Topics Alcohol use: Never Drug use: Never Comment: Caught with Xanax at school, states he "found" it Past Surgical History Past Surgical History: Procedure Laterality Date ADENOIDECTOMY Age 4 - 4 Y TONSILLECTOMY Medications Medications azithromycin (ZITHROMAX) 500 mg in NaCl 0.9% (NS) 250 mL VIAL-MATE IV piggyback (500 mg IV Piggyback New Bag 05/29/23 0453) cefTRIAXone (ROCEPHIN) 1,000 mg in NaCl 0.9% (NS) 100 mL MINI-BAG (0 mg IV Piggyback Stopped 05/29/23 0452) ipratropium-albuteroL (DUONEB) 0.5 mg-3 mg(2.5 mg base)/3 mL nebulizer solution 3 mL (3 mL Inhalation Given 05/29/23 1997) ondansetron (ZOFRAN (PF)) injection 4 mg (4 mg Slow IV Push Given 05/29/23 0461) Allergies Allergies Allergen Reactions Omnicef [Cefdinir] Diarrhea Review of Systems Review of Systems Constitutional: Positive for fever. HENT: Negative. Eyes: Negative. Respiratory: Positive for cough and shortness of breath. Breasts: Negative. Cardiovascular: Negative. Gastrointestinal: Negative. Genitourinary: Negative. Musculoskeletal: Negative. Skin: Negative. Neurological: Negative. Psychiatric/Behavioral: Negative. Endocrine: Endocrine negative Physical Exam BP (!) 140/90 | Pulse 78 | Temp 37.8 ?C (100.1 ?F) (Oral) | Resp 15 | Ht 1.727 m (5' 8") | Wt 66.2 kg (146 lb) | SpO2 97% | BMI 22.20 kg/m? Physical Exam Vitals and nursing note reviewed. Constitutional: General: He is not in acute distress. Appearance: He is well-developed. He is not ill-appearing. HENT: Head: Normocephalic and atraumatic. Right Ear: Ear canal and external ear normal. Left Ear: Ear canal and external ear normal. Nose: Nose normal. No congestion or rhinorrhea. Mouth/Throat: Mouth: Mucous membranes are moist. Pharynx: Oropharynx is clear. No oropharyngeal exudate or posterior oropharyngeal erythema. Eyes: General: Right eye: No discharge. Left eye: No discharge. Conjunctiva/sclera: Conjunctivae normal. Pupils: Pupils are equal, round, and reactive to light. Cardiovascular: Rate and Rhythm: Normal rate and regular rhythm. Pulses: Normal pulses. Heart sounds: Normal heart sounds. No murmur heard. No friction rub. Pulmonary: Effort: Pulmonary effort is normal. No respiratory distress. Breath sounds: Normal breath sounds. Decreased air movement present. No stridor. No wheezing or rhonchi. Abdominal: General: Bowel sounds are normal. There is no distension. Palpations: Abdomen is soft. There is no mass. Tenderness: There is no abdominal tenderness. Hernia: No hernia is present. Musculoskeletal: General: No swelling, tenderness, deformity or signs of injury. Normal range of motion. Cervical back: Normal range of motion and neck supple. No rigidity or tenderness. Skin: General: Skin is warm and dry. Capillary Refill: Capillary refill takes less than 2 seconds. Coloration: Skin is not jaundiced or pale. Findings: No bruising or erythema. Neurological: General: No focal deficit present. Mental Status: He is alert and oriented to person, place, and time. Cranial Nerves: No cranial nerve deficit. Sensory: No sensory deficit. Motor: No weakness. Coordination: Coordination normal. Psychiatric: Mood and Affect: Mood normal. Behavior: Behavior normal. Thought Content: Thought content normal. Judgment: Judgment normal. Labs and Studies Lab Results CBC WITH DIFF - Abnormal Result Value Ref Range WBC 12.76 4.50 - 13.50 10*3/?L RBC 4.79 4.50 - 5.30 10*6/?L HGB 14.6 13.0 - 16.0 g/dL HCT 42.3 37.0 - 49.0 % MCV 88.3 78.0 - 95.0 fL MCH 30.5 26.0 - 32.0 pg MCHC 34.5 32.0 - 36.0 g/dL RDW-SD 41.1 38.5 - 49.0 fL RDW-CV 12.7 11.5 - 14.0 % PLT 139 133 - 320 10*3/?L MPV 12.3 9.3 - 12.9 fL NRBC/100 WBC 0.0 0.0 - 10.0 /100 WBCs NRBC x10^3 <0.01 10*3/?L SEG % 61 33 - 76 % BAND % 4 (*) 0 - 1 % LYMPH % 20 15 - 55 % MONO % 11 (*) 0 - 4 % EOS % 4 (*) 0 - 3 % ANC 8.29 1.50 - 10.30 10*3/uL BASIC METABOLIC PANEL (NA, K, CL, CO2, GLUCOSE, BUN, CREATININE, CA) - Abnormal NA 138 135 - 145 mmol/L K 3.3 (*) 3.5 - 5.0 mmol/L CL 96 (*) 98 - 108 mmol/L CO2 TOTAL 35 (*) 23 - 31 mmol/L AGAP 7 2 - 16 BUN 14 7 - 23 mg/dL GLUCOSE 110 70 - 110 mg/dL CREATININE 0.63 0.60 - 1.25 mg/dL CALCIUM 9.0 8.6 - 10.6 mg/dL eGFR 165.9 mL/min/1.73m2 ACUTE CARE ARTERIAL BLOOD GAS - Abnormal PH 7.45 7.35 - 7.45 PCO2 37 35 - 45 mmHg PO2 58 (*) 80 - 100 mmHg HCO3 25 22 - 26 mEq/L BE 1.1 -3.0 - 3.0 mEq/L LACTIC ACID WHOLE BLOOD - Normal LACTIC ACID 2.13 0.50 - 2.20 mmol/L BLOOD CULTURE SCREEN BLOOD CULTURE SCREEN RESPIRATORY PANEL BY PCR XR CHEST 1 VW Final Result ORDERING CLINICIAN: FARZANA ANDERSON TECHNIQUE: Single view of the chest STUDY QUALITY: Adequate INDICATION: Cough COMPARISON: None DISCUSSION: There is extensive consolidation in both lungs. There is no pleural effusion or pneumothorax. The heart size is within normal limits. The airway is midline. The mediastinal contour is normal. IMPRESSION Moderate/severe multifocal pneumonia RL: [id number] AFC: [id number] End of report Orders and Treatments Orders Placed This Encounter Procedures Critical Care XR CHEST 1 VW CBC WITH DIFF BASIC METABOLIC PANEL (NA, K, CL, CO2, GLUCOSE, BUN, CREATININE, CA) Lactic Acid Whole Blood Lactic Acid Whole Blood BLOOD CULTURE SCREEN BLOOD CULTURE SCREEN RESPIRATORY PANEL BY PCR Acute Care Arterial Blood Gas. Orders Placed This Encounter Medications cefTRIAXone (ROCEPHIN) 1,000 mg in NaCl 0.9% (NS) 100 mL MINI-BAG DISCONTD: azithromycin (ZITHROMAX) injection 500 mg ipratropium-albuteroL (DUONEB) 0.5 mg-3 mg(2.5 mg base)/3 mL nebulizer solution 3 mL azithromycin (ZITHROMAX) 500 mg in NaCl 0.9% (NS) 250 mL VIAL-MATE IV piggyback ondansetron (ZOFRAN (PF)) injection 4 mg Patient's Medications START taking these medications No medications on file CONTINUE taking these medications which have NOT CHANGED AMOXICILLIN 500 MG CAPSULE Take 2 capsules by mouth in the morning and 2 capsules at noon and 2 capsules in the evening. Do all this for 5 days. BENZONATATE 100 MG CAPSULE Take 2 capsules by mouth every 8 (eight) hours as needed for Cough. BROMPHENIRAMINE-PSEUDOEPHEDRI NE-DM (BROMFED DM) 2-30-10 MG/5 ML SYRUP Take 5 mL by mouth 4 (four) times daily as needed for Congestion/Allergies. BROMPHENIRAMINE-PSEUDOEPHEDRI NE-DM (BROMFED DM) 2-30-10 MG/5 ML SYRUP Take 5 mL by mouth 3 (three) times daily as needed for Cold symptoms. CETIRIZINE 10 MG TABLET Take 1 tablet by mouth daily. KETOROLAC 10 MG TABLET Take 1 tablet by mouth every 6 (six) hours as needed for Pain (scale 4-6). ONDANSETRON 4 MG DISINTEGRATING TABLET Take 1 tablet by mouth every 8 (eight) hours as needed for Nausea and Vomiting (N/V). TAMSULOSIN 0.4 MG 24 HR CAPSULE Take 1 capsule by mouth at bedtime. TRAMADOL 50 MG TABLET Take 1 tablet by mouth every 6 (six) hours as needed for Pain (scale 7-10). Indications: acute pain START taking Modified Medications as Prescribed No medications on file STOP taking these medications No medications on file Procedures Critical Care Performed by: Farzana Anderson MD Authorized by: Farzana Anderson MD Critical care provider statement: Critical care time (minutes): 45 Critical care was necessary to treat or prevent imminent or life-threatening deterioration of the following conditions: Respiratory failure Critical care was time spent personally by me on the following activities: Blood draw for specimens, development of treatment plan with patient or surrogate, discussions with consultants, examination of patient, evaluation of patient's response to treatment, obtaining history from patient or surrogate, ordering and performing treatments and interventions, ordering and review of laboratory studies, ordering and review of radiographic studies, pulse oximetry, re-evaluation of patient's condition and review of old charts I assumed direction of critical care for this patient from another provider in my specialty: no Care discussed with: admitting provider MDM & Notes Patient was evaluated for an emergency medical condition related to Shortness of Breath . History and/or review of systems is limited by:History limited: None. Medical Decision Making 17 yo man comes to the ED complaining of shortness of breath, cough and phlegm production for the last few days. Patient was recently diagnosed with Pneumonia and has been on antibiotics without significant improvement. Tonight worsening SOB. H/o ADHD, asthma. DDx Pneumonia, SOB, fever Problems Addressed: Pneumonia of both lungs due to infectious organism, unspecified part of lung: acute illness or injury Amount and/or Complexity of Data Reviewed Labs: ordered. Decision-making details documented in ED Course. Radiology: ordered and independent interpretation performed. Details: Multifocal PNA Discussion of management or test interpretation with external provider(s): O2 to keep sat > 94% Rocephin/ Zithromax Blood cultures/respiratory panel Discussed with Hospitalist Dr. Candelario for admission recommended pulmonary consult. Patient will be transferred to [facility] for MICU admission and pulmonary evaluation. Patient and mother understand and agree with the plan. Case discussed with Dr. Gonzalez at [facility]. Risk Prescription drug management. Decision regarding hospitalization. Diagnosis/Impression as of 05/29/23 0543 Pneumonia of both lungs due to infectious organism, unspecified part of lung Case discussed with: none Barriers & Social Determinants of Healthcare: Limitations to patient care and compliance: none. Assessment: Desmond Guzman is a 17 year old male presenting for single complaint(s) listed below and mentioned within the note. The patient has acute condition(s). Follow up with providers listed below for further evaluation and management. Return precautions given if symptoms worsen as documented in the discharge instructions. History, physical exam findings, results of visit, differential diagnosis, medication regimens and plan of future care have been considered. Additional MDM may be found in the ED course. Differential diagnosis considered and final disposition made based on information gathered during evaluation and may not be completely ruled out or specifically listed. Vital signs were rechecked before final disposition and determined to be stable. Diagnoses ICD-10-CM 1. Pneumonia of both lungs due to infectious organism, unspecified part of lung J18.9 Disposition and Condition ED Disposition ED Disposition Transfer [facility] to IP/Obs Condition -- Comment -- Patient's Medications START taking these medications No medications on file CONTINUE taking these medications which have NOT CHANGED AMOXICILLIN 500 MG CAPSULE Take 2 capsules by mouth in the morning and 2 capsules at noon and 2 capsules in the evening. Do all this for 5 days. BENZONATATE 100 MG CAPSULE Take 2 capsules by mouth every 8 (eight) hours as needed for Cough. BROMPHENIRAMINE-PSEUDOEPHEDRI NE-DM (BROMFED DM) 2-30-10 MG/5 ML SYRUP Take 5 mL by mouth 4 (four) times daily as needed for Congestion/Allergies. BROMPHENIRAMINE-PSEUDOEPHEDRI NE-DM (BROMFED DM) 2-30-10 MG/5 ML SYRUP Take 5 mL by mouth 3 (three) times daily as needed for Cold symptoms. CETIRIZINE 10 MG TABLET Take 1 tablet by mouth daily. KETOROLAC 10 MG TABLET Take 1 tablet by mouth every 6 (six) hours as needed for Pain (scale 4-6). ONDANSETRON 4 MG DISINTEGRATING TABLET Take 1 tablet by mouth every 8 (eight) hours as needed for Nausea and Vomiting (N/V). TAMSULOSIN 0.4 MG 24 HR CAPSULE Take 1 capsule by mouth at bedtime. TRAMADOL 50 MG TABLET Take 1 tablet by mouth every 6 (six) hours as needed for Pain (scale 7-10). Indications: acute pain START taking Modified Medications as Prescribed No medications on file STOP taking these medications No medications on file Critical Care 45 min Farzana Anderson MD, FACEP, FAAEM [employer] Emergency and Internal Medicine [facility] #[id number] Farzana Anderson MD 05/29/23 0544 T [facility] 2023-05-24 23:18:50 Formatting of this n ote might be different from the original. Pt discharged home following ERP eval. Pt given all education and information regarding pain manage ment; antibiotic use; and follow up importance. Pt verbalized understanding. Vss. Alert and ambulatory to pov with cousin. T [facility] 2023-05-24 20:16:12 Formatting of this n ote might be different from the original. Pt to ed with family. Alert and ambulatory. C/o R side flank pain with n/v and difficulty with urination. Pt hx of kidney stones. 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 T Samanta Bhardwaj RN [facility] 2023-05-24 13:32:10 Formatting of this n ote might be different from the original. Called pt, notified pt of results for RSV, FLU, COVID BINAX, STREP all NEGATIVE. Recommended and urged pt to go to ER since patient reports is feeling worse. Pt reports will go to [facility] ER. T [facility] 2023-05-24 12:58:09 Formatting of this n ote might be different from the original. Per VANESSA Gill nurse called to follow up with patient from last night UC visit. Spoke with Pt grandma who advised Pt is not feeling better and currently sleeping. Pt grandma stated Pt is now not eating and drinking. Pt grandma advised to have pt follow up with emergency room since symptoms are worsening for further evaluation. Pt grandma stated " we keep telling him to go the ER but he's grown now and we cant make him go, would you like me to carry him?". Nurse advised grandmother of ER precautions and the importance of going with symptoms getting worse instead of improving. Pt grandmother voiced understanding with no further questions or concerns at this time. Ciara Lim RN [facility]
[2024-11-28] MEDS ORDERED: ONDANSETRON 4 MG/2 ML VIAL ONE ×2 (16:06→19:54)
[2024-11-28] MEDS ORDERED: MORPHINE 4 MG/ML SYR ONE ×2 (16:06→18:44)
[2024-11-28] MEDS ORDERED: KETOROLAC 30 MG/ML INJ ONE (16:06)
[2024-11-28] MEDS ORDERED: NA CHLORIDE 0.9% 1,000 ML ONE (16:07)
[2024-11-28 16:37] LABS: Absolute Basophils 0.1 K/uL (0-0.5); Absolute Eosinophils 0.2 K/uL (0-0.5); Absolute Lymphocytes (CBC) 2.4 K/uL (0.7-4.9); Absolute Monocytes 1.3 K/uL (0.1-1.3); Absolute Neutrophil 10.6 K/uL (1.8-8.0); Basophils % 0.4 % (0-1.3); Eosinophils % 1.3 % (0-4.4); Hematocrit 45.8 % (39.6-49.0); Hemoglobin 15.3 g/dL (13.6-17.9); Lymphocytes % 16.6 % (15.3-44.8); MCH 29.2 pg (27.0-35.0); MCHC 33.4 g/dL (32.0-36.0); MCV 87.4 fL (80-100); MPV 11.6 fL (7.6-11.3); Monocytes % 8.7 % (3.3-12.3); Platelets 202 thou/uL (152-406); RBC Red Blood Cell Count 5.24 M/uL (4.33-5.43); Red Cell Distribution Width 13.1 % (12.1-15.2)
[2024-11-28 17:02] LABS: Albumin 4.2 g/dL (3.4-5.0); Albumin/Globulin Ratio 1.3 (1.1-1.8); Anion Gap 10.9 mEq/L (5.0-15.0); Bilirubin Total 0.3 mg/dL (0.2-1.0); Globulin 3.2 g/dL (2.3-3.5); Potassium 3.9 mEq/L (3.5-5.1); Protein, Total 7.4 g/dL (6.4-8.2)
--- NOTE | 2024-11-28 17:17 | RAD REPORT ---
EXAMINATION: CT Stone Protocol CLINICAL INDICATION: Male, 19 years old. FLANK PAIN TECHNIQUE: CT abdomen and pelvis was performed, without IV contrast, as per department protocol. Axia l, sagittal and coronal reconstructions were obtained. One or more of the following dose reduction techniques were used: Automated exposure control, adjustment of the mA and kV according to the patien t size, and iterative reconstruction. Unless otherwise specified, incidental findings do not require dedicated imaging follow-up. COMPARISON: 12/18/2019 FINDINGS: The lack of intravenous contrast limits the sensitivity of this exam for evaluation of solid visceral organs, vascular structures, and retroperitoneum. LOWER CHEST: The visualized lung bases are clear. LIVER: Normal in size and contour. No focal lesion. BILIARY SYSTEM: No suspicious abnormalities. SPLEEN: Normal size. No focal lesion. PANCREAS: No mass, ductal dilation, or brady-pancreatic fluid. ADRENALS: Normal; no mass. KIDNEYS AND URETERS: Normal size and contour. No hydronephrosis on the right. Left mild to moderate h ydroureteronephrosis, with 5 mm calculus along the proximal left ureter. Other bilateral nonobstructing calculi not exceeding 2 mm.. URINARY BLADDER: Normal contour. GASTROINTESTINAL TRACT: No evidence of bowel obstruction, significant free fluid, free air or abscess . APPENDIX: Normal appendix. LYMPH NODES: No lymphadenopathy. MUSCULOSKELETAL: No acute or suspicious osseous abnormality. ADDITIONAL FINDINGS: None. IMPRESSION: Left mild to moderate hydroureteronephrosis, with 5 mm calculus along the proximal left ureter. Other bilateral nonobstructing calculi not exceeding 2 mm. THIS REPORT CONTAINS FINDINGS THAT MAY BE CRITICAL TO PATIENT CARE. The findings were verbally commun icated via telephone to Yuri Cook M.D. on 11/28/2024 5:11 PM.
[2024-11-28] MEDS ORDERED: MAGNESIUM SULFATE 1 gm IVPB 1 GM/100 ML BAG IV ONE (19:54)
[2024-11-28] MEDS ORDERED: HYDROMORPHONE HCL 0.5 MG/0.5 ML INJ ONE (19:54)
[2024-11-28] MEDS ORDERED: TAMSULOSIN 0.4 MG SR CAP ONE (19:54)
[2024-11-28 20:03] LABS: Specific Gravity 1.026 (1.005-1.030); Sqamous Epithelial None Seen /HPF (None Seen); Urine Bacteria <20 /HPF (<20); Urine Bilirubin NEGATIVE (Negative); Urine Blood 3+ (OVER) (Negative); Urine Clarity Extremely Turbid (Clear); Urine Color Light-Yellow (Yellow); Urine Culture Reflex Order NOT NEEDED; Urine Glucose NEGATIVE (Negative); Urine Ketones 2+ (Negative); Urine Microscopic Reflex YN ORDER UMIC; Urine Mucus 2+ /HPF (None Seen); Urine Nitrite NEGATIVE (Negative); Urine Protein TRACE (Negative); Urine RBC >50 /HPF (None Seen); Urine Urobilinogen Normal (Normal); Urine WBC None Seen /HPF (<5); Urine pH 7.5 (5.0-7.0)
--- NOTE | 2024-11-28 20:42 | EDPHYS ---
Physician Documentation [facility] Name: Desmond Hair Age: 19 yrs Sex: Male : 2005 Arrival Date: 11/28/2024 Time: 15:32 Bed 5 Private MD: ED Physician Yuri Cook HPI: 11/28 17:28 This 19 yrs old Male presents to ER via Ambulatory with complaints of Possible kb Kidney Stone. 17:28 Pt is a 19 year old male who presents for left flank pain that started one week ago. kb states he was seen at [place] ER and diagnosed with a 7mm kidney stone. States he is still having pain. . Historical: - Allergies: 15:47 Omnicef; ap3 - PMHx: 15:47 Kidney stone; ap3 - Immunization history:: Flu vaccine status is unknown. - Infectious Disease History:: Denies. - Social history:: Smoking status: Reported history of juuling and/or vaping. ROS: 17:27 Constitutional: As per HPI kb Exam: 17:27 Constitutional: This is a well developed, well nourished patient who is awake, alert, kb and in no acute distress. Head/Face: Normocephalic, atraumatic. ENT: Moist Mucous membranes Cardiovascular: Regular rate Respiratory: Respirations even and unlabored. No increased work of breathing. Talking in full sentences Skin: Warm, dry with normal turgor. Normal color. MS/ Extremity: Pulses equal, no cyanosis. Neurovascular intact. Full, normal range of motion. Neuro: Awake and alert, GCS 15, oriented to person, place, time, and situation. 17:27 Abdomen/GI: Inspection: abdomen appears normal, Bowel sounds: normal, Palpation: soft, in all quadrants, mild abdominal tenderness, in the left upper quadrant and left lower quadrant, 17:27 Back: CVA tenderness, that is moderate, is noted on the left, Vital Signs: 15:45 BP 123 / 83; Pulse 88; Resp 21; Temp 97.6(O); Pulse Ox 100% ; Weight 90.72 kg; Height 5 ap3 ft. 7 in. ; Pain 8/10; 16:00 BP 122 / 77; Pulse 73; Resp 18; Pulse Ox 95% on R/A; Pain 9/10; ld1 17:15 BP 131 / 76; Pulse 74; Resp 18; Pulse Ox 96% on R/A; ld1 20:07 BP 118 / 69; Pulse 71; Resp 17; Pulse Ox 97% ; cp4 20:45 BP 126 / 67; Pulse 76; Resp 18; Pulse Ox 99% on R/A; br2 15:45 Body Mass Index 31.32 (90.72 kg, 170.18 cm) - Percentile 96.0 % ap3 15:45 Pain Scale: Adult ap3 16:00 Pain Scale: Adult ld1 MDM: 15:40 Medical Screening Exam initiated kb 17:28 Differential diagnosis: pyelonephritis, uti, kidney stone. Data reviewed: vital signs, kb nurses notes. 17:34 Transition of care: After a detail discussion of the patient's case, care is kb transferred to Gia Serrato PA-C. ED course: Pt sleeping comfortably on stretcher. . 11/28 15:44 Order name: CBC with Diff; Complete Time: 16:42 ap3 11/28 15:44 Order name: CMP; Complete Time: 17:05 ap3 11/28 15:44 Order name: Urinalysis w/ reflexes; Complete Time: 20:03 ap3 11/28 15:44 Order name: CT Stone Protocol; Complete Time: 17:27 ap3 11/28 15:44 Order name: IV Saline Lock; Complete Time: 16:23 ap3 11/28 15:44 Order name: Labs collected and sent; Complete Time: 16:24 ap3 Administered Medications: 16:00 Drug: TORadol - Ketorolac IVP 15 mg IVP once Route: IVP; Site: right antecubital; ld1 18:44 Follow up: Response: No adverse reaction ld1 16:00 Drug: Ondansetron IVP 4 mg IVP once; over 2 minutes Route: IVP; Site: right antecubital;ld1 18:44 Follow up: Response: No adverse reaction ld1 16:00 Drug: morphine IVP or IV 4 mg IVP once over 4 mins Route: IVP; Infused Over: 4 mins; ld1 Site: right antecubital; 18:44 Follow up: Response: No adverse reaction ld1 16:00 Drug: NS 0.9% IV 1000 ml IV at 1 bolus Per protocol; to be given as a bolus over 60 ld1 minutes Route: IV; Rate: 1 bolus; Site: right antecubital; 18:44 Follow up: Response: No adverse reaction; IV Status: Completed infusion; IV Intake: ld1 1000ml 18:51 Drug: morphine IVP or IV 4 mg IVP once over 4 mins Route: IVP; Infused Over: 4 mins; ld1 Site: right antecubital; 20:30 Follow up: Response: No adverse reaction br2 20:03 Drug: Magnesium Sulfate IVPB 1 grams IVPB once over 1 hrs Route: IVPB; Infused Over: 1 cp4 hrs; Site: right antecubital; 20:54 Follow up: IV Status: Completed infusion; IV Intake: 100ml br2 20:04 Drug: HYDROmorphone IVP 0.5 mg IVP once Route: IVP; Site: right antecubital; cp4 20:45 Follow up: Response: Pain is decreased br2 20:04 Drug: Ondansetron IVP 4 mg IVP once; over 2 minutes Route: IVP; Site: right antecubital;cp4 20:45 Follow up: Response: No adverse reaction br2 20:04 Not Given (Physician Discretion): flomax0.4 mg PO once sb4 20:47 Drug: [place] PO 10 mg-325 mg 1 tabs PO once Route: PO; br2 21:04 Follow up: Response: Medication administered at discharge. br2 Disposition Summary: 11/28/24 20:41 Discharge Ordered Notes: Location: Home sb4 Problem: an ongoing problem sb4 Symptoms: have improved sb4 Condition: Stable sb4 Diagnosis - Calculus of kidney with calculus of ureter sb4 Followup: sb4 - With: Eben John MD - When: 1 week - Reason: Further diagnostic work-up, Recheck today's complaints, Re-evaluation by your physician Discharge Instructions: - Discharge Summary Sheet sb4 - Kidney Stones sb4 Forms: - Prescription Opioid Use sb4 - Patient Portal Instructions sb4 - Leadership Thank You Letter sb4 Prescriptions: - Colace 100 mg Oral Tablet - take 1 tablet ORAL route every 12 hours; 14 tablet; Refills: 0, Product sb4 Selection Permitted - Tramadol 50 mg Oral Tablet - take 1 tablet ORAL route every 8 hours as needed; 12 tablet; Refills: 0, sb4 Product Selection Permitted - ondansetron 8 mg Oral Tablet,disintegrating - take 1 tablet ORAL route every 8 hours; 10 tablet; Refills: 0, Product sb4 Selection Permitted Addendum: 11/30/2024 12:39 Co-signature as Attending Physician, Yuri Cook MD I agree with the assessment and c ta plan of care. Signatures: Dispatcher [employer] EDMS Kusum Huerta, ESCROW PROCESSOR-C ESCROW PROCESSOR-Yuri Cross MD MD cha Prokisch, Amanda, RN RN ap3 Sis Lombardi RN RN ld1 Gia Serrato PALulu PA-Liam sb4 Sonja Wright cp4 Netta Honeycutt RN RN br2 Corrections: (The following items were deleted from the chart) 11/28 15:44 15:44 CBC+H.LAB.BRZ ordered. EDMS EDMS 15:44 15:44 COMPREHENSIVE METABOLIC PANEL+C.LAB.BRZ ordered. EDMS EDMS 15:44 15:44 Urinalysis+U.LAB.BRZ ordered. EDMS EDMS 15:44 15:44 Stone Protocol+CT.RAD.BRZ ordered. EDMS EDMS
--- NOTE | 2024-11-28 20:42 | ER ---
Nurse's Notes [facility] Name: Desmond Hair Age: 19 yrs Sex: Male : 2005 Arrival Date: 11/28/2024 Time: 15:32 Bed 5 Private MD: Diagnosis: Calculus of kidney with calculus of ureter Presentation: 11/28 15:45 Chief complaint: Patient states: he was dx with a kidney stone at another facility on ap3 Saturday. patient reports increased pain and decreased urination. patient currently rates his pain as an 8/10 on the pain scale. Coronavirus screen: At this time, the client does not indicate any symptoms associated with coronavirus-19. Ebola Screen: No symptoms or risks identified at this time. Initial Sepsis Screen: Does the patient meet any 2 criteria? RR > 20 per min. No. Patient's initial sepsis screen is negative. Does the patient have a suspected source of infection? No. Patient's initial sepsis screen is negative. Risk Assessment: Do you want to hurt yourself or someone else? Patient reports no desire to harm self or others. Onset of symptoms was November 23, 2024. 15:45 Method Of Arrival: Ambulatory ap3 15:45 Acuity: WILLIS 3 ap3 Triage Assessment: 15:47 General: Appears uncomfortable, Behavior is restless. Pain: Complains of pain in left ap3 flank, left abdomen. Neuro: Level of Consciousness is awake, alert, obeys commands, Oriented to person, place, time, situation, Appropriate for age. Cardiovascular: Patient's skin is warm and dry. Respiratory: Airway is patent Respiratory effort is even, unlabored, Respiratory pattern is regular, tachypnea. GI: Reports nausea. : Reports pain in left flank(s), decreased urination. Historical: - Allergies: 15:47 Omnicef; ap3 - PMHx: 15:47 Kidney stone; ap3 - Immunization history:: Flu vaccine status is unknown. - Infectious Disease History:: Denies. - Social history:: Smoking status: Reported history of juuling and/or vaping. Screenin:48 [facility] ED Fall Risk Assessment (Adult) History of falling in the last 3 months, ap3 including since admission No falls in past 3 months (0 pts) Confusion or Disorientation No (0 pts) Intoxicated or Sedated No (0 pts) Impaired Gait No (0 pts) Mobility Assist Device Used No (0 pt) Altered Elimination No (0 pt) Score/Fall Risk Level 0 - 2 = Low Risk Oriented to surroundings, Maintained a safe environment, Educated pt \T\ family on fall prevention, incl call for assistance when getting out of bed, Assessed \T\ reinforced patient's understanding of fall precautions, Hourly rounding (assess needs \T\ fall precautionary measures) done, Used ambulatory aids as needed (educated on \T\ assisted with). Abuse screen: Denies threats or abuse. Nutritional screening: No deficits noted. Tuberculosis screening: No symptoms or risk factors identified. Assessment: 16:00 General: Appears in no apparent distress. uncomfortable, Behavior is cooperative, ld1 anxious. General: Smells of. Pain: Complains of pain in abdomen and left lower quadrant and left upper quadrant. Pain: Pain does not radiate. Pain currently is 9 out of 10 on a pain scale. Quality of pain is described as throbbing, Pain began suddenly, Is continuous. Neuro: Level of Consciousness is awake, alert, obeys commands, Oriented to person, place, time, situation. 16:00 Cardiovascular: Capillary refill < 3 seconds Patient's skin is warm and dry. ld1 Respiratory: Airway is patent Respiratory effort is even, unlabored. GI: Abdomen is flat, non-distended, Bowel sounds present X 4 quads. Abd is soft Abdomen is tender to palpation. : No signs and/or symptoms were reported regarding the genitourinary system. EENT: No signs and/or symptoms were reported regarding the EENT system. Derm: No signs and/or symptoms reported regarding the dermatologic system. Musculoskeletal: No signs and/or symptoms reported regarding the musculoskeletal system. 17:00 Reassessment: Patient appears in no apparent distress at this time. No changes from ld1 previously documented assessment. 18:46 Reassessment: Patient appears in no apparent distress at this time. Patient and/or ld1 family updated on plan of care and expected duration. Pain level reassessed. c/o pain. Notified ERP. Patient states symptoms have not improved. 19:20 Reassessment: Patient and/or family updated on plan of care and expected duration. Pain br2 level reassessed. Patient is alert, oriented x 3, equal unlabored respirations, skin warm/dry/pink. Patient states symptoms have not improved. Pain: Complains of pain in left lower back Pain currently is 8 out of 10 on a pain scale. GI: Reports nausea. Vital Signs: 15:45 BP 123 / 83; Pulse 88; Resp 21; Temp 97.6(O); Pulse Ox 100% ; Weight 90.72 kg; Height 5 ap3 ft. 7 in. ; Pain 8/10; 16:00 BP 122 / 77; Pulse 73; Resp 18; Pulse Ox 95% on R/A; Pain 9/10; ld1 17:15 BP 131 / 76; Pulse 74; Resp 18; Pulse Ox 96% on R/A; ld1 20:07 BP 118 / 69; Pulse 71; Resp 17; Pulse Ox 97% ; cp4 20:45 BP 126 / 67; Pulse 76; Resp 18; Pulse Ox 99% on R/A; br2 15:45 Body Mass Index 31.32 (90.72 kg, 170.18 cm) - Percentile 96.0 % ap3 15:45 Pain Scale: Adult ap3 16:00 Pain Scale: Adult ld1 ED Course: 15:34 Patient arrived in ED. mr 15:39 Kusum Huerta FNP-C is PHCP. kb 15:39 Yuri Cook MD is Attending Physician. kb 15:47 Triage completed. ap3 15:48 Arm band placed on left wrist. ap3 15:58 Katina Raymond, LUCAS is Primary Nurse. iw 16:00 Patient has correct armband on for positive identification. Placed in gown. Bed in low ld1 position. Call light in reach. Side rails up X2. awake overnight monitor on. Pulse ox on. NIBP on. Door closed. Noise minimized. Warm blanket given. 16:00 No provider procedures requiring assistance completed. ld1 16:10 CT Stone Protocol In Process Unspecified. EDMS 16:24 CBC with Diff Sent. cc6 16:24 CMP Sent. cc6 16:24 Initial lab(s) drawn, by ga, sent to lab. Inserted saline lock: 20 gauge in right cc6 antecubital area, using aseptic technique. Blood collected. Flushed with 10 mL NS. 17:34 PHCP role handed off by Kusum Huerta FNP-C sb4 17:34 Gia Serrato PA-C is PHCP. sb4 20:41 Eben John MD is Referral Physician. sb4 20:55 IV discontinued, intact, bleeding controlled, No redness/swelling at site. Pressure br2 dressing applied. Administered Medications: 16:00 Drug: TORadol - Ketorolac IVP 15 mg IVP once Route: IVP; Site: right antecubital; ld1 18:44 Follow up: Response: No adverse reaction ld1 16:00 Drug: Ondansetron IVP 4 mg IVP once; over 2 minutes Route: IVP; Site: right antecubital;ld1 18:44 Follow up: Response: No adverse reaction ld1 16:00 Drug: morphine IVP or IV 4 mg IVP once over 4 mins Route: IVP; Infused Over: 4 mins; ld1 Site: right antecubital; 18:44 Follow up: Response: No adverse reaction ld1 16:00 Drug: NS 0.9% IV 1000 ml IV at 1 bolus Per protocol; to be given as a bolus over 60 ld1 minutes Route: IV; Rate: 1 bolus; Site: right antecubital; 18:44 Follow up: Response: No adverse reaction; IV Status: Completed infusion; IV Intake: ld1 1000ml 18:51 Drug: morphine IVP or IV 4 mg IVP once over 4 mins Route: IVP; Infused Over: 4 mins; ld1 Site: right antecubital; 20:30 Follow up: Response: No adverse reaction br2 20:03 Drug: Magnesium Sulfate IVPB 1 grams IVPB once over 1 hrs Route: IVPB; Infused Over: 1 cp4 hrs; Site: right antecubital; 20:54 Follow up: IV Status: Completed infusion; IV Intake: 100ml br2 20:04 Drug: HYDROmorphone IVP 0.5 mg IVP once Route: IVP; Site: right antecubital; cp4 20:45 Follow up: Response: Pain is decreased br2 20:04 Drug: Ondansetron IVP 4 mg IVP once; over 2 minutes Route: IVP; Site: right antecubital;cp4 20:45 Follow up: Response: No adverse reaction br2 20:04 Not Given (Physician Discretion): flomax0.4 mg PO once sb4 20:47 Drug: [place] PO 10 mg-325 mg 1 tabs PO once Route: PO; br2 21:04 Follow up: Response: Medication administered at discharge. br2 Medication: 16:00 VIS not applicable for this client. ld1 Intake: 18:44 IV: 1000ml; Total: 1000ml. ld1 20:54 IV: 100ml; Total: 1100ml. br2 Outcome: 20:41 Discharge ordered by MD. sb4 20:55 Discharged to home ambulatory, br2 20:55 Condition: good 20:55 Discharge instructions given to patient, Instructed on discharge instructions, follow up and referral plans. Demonstrated understanding of instructions, follow-up care, medications, Prescriptions given X 3, 20:57 Patient left the ED. br2 Signatures: Dispatcher [employer] EDMS Kusum Huerta, SALES AND MARKETING ASSOCIATE-C SALES AND MARKETING ASSOCIATE-CkMonique Okeefe, Reg Reg mr Katina Raymond, RN LUCAS iw Georgie Daigle RN RN ap3 Sis Lombardi RN RN ld1 Gia Serrato, PAJannaC PA-C sb4 Sonja Wright cp4 Netta Honeycutt RN RN br2 Holli Miller cc6
[2024-11-28] MEDS ORDERED: HYDROCODONE/APAP 5/325 MG TAB ONE (20:45)
[2024-11-28 21:19] VITALS: TEMP 97.6
[2024-11-28 21:43] VITALS: BP 118/69; O2SAT 97
== END 2024-11-28 20:57 | disposition home or self-care (01) ==
LOC: ER 15:32
DX: N20.2 Calculus of kidney with calculus of ureter (principal); Z87.442 Personal history of urinary calculi
CPT/HCPCS: 36415; 74176; 76377; 80053; 81001; 85025; 96361; 96365; 96375; 99285; J1171; J2405; J3475; J7030

== ENCOUNTER 2024-12-18 15:16 | Inpatient (IN) | payer SELFPAY ==
[2024-12-18] MEDS ORDERED: ONDANSETRON 4 MG/2 ML VIAL ONE ×2 (15:41→19:14)
[2024-12-18] MEDS ORDERED: TAMSULOSIN 0.4 MG SR CAP ONE (15:41)
[2024-12-18] MEDS ORDERED: MAGNESIUM SULFATE 1 gm IVPB 1 GM/100 ML BAG IV ONE (15:42)
[2024-12-18] MEDS ORDERED: MORPHINE 4 MG/ML SYR ONE (15:42)
[2024-12-18 15:58] LABS: Absolute Basophils 0.1 K/uL (0-0.5); Absolute Eosinophils 0.2 K/uL (0-0.5); Absolute Lymphocytes (CBC) 2.9 K/uL (0.7-4.9); Absolute Monocytes 1.2 K/uL (0.1-1.3); Absolute Neutrophil 14.9 K/uL (1.8-8.0); Basophils % 0.4 % (0-1.3); Eosinophils % 0.8 % (0-4.4); Hematocrit 45.5 % (39.6-49.0); Hemoglobin 15.8 g/dL (13.6-17.9); Lymphocytes % 15.2 % (15.3-44.8); MCH 29.6 pg (27.0-35.0); MCHC 34.6 g/dL (32.0-36.0); MCV 85.4 fL (80-100); MPV 10.8 fL (7.6-11.3); Monocytes % 6.1 % (3.3-12.3); Neutrophils % 77.5 % (41.7-73.7); Nucleated Red Blood Cells % 0.1 % (0-0); Platelets 278 thou/uL (152-406); RBC Red Blood Cell Count 5.33 M/uL (4.33-5.43)
[2024-12-18] MEDS ORDERED: FENTANYL CITR 100 MCG/2 ML ONE (15:59)
[2024-12-18 16:11] LABS: Anion Gap 10.6 mEq/L (5.0-15.0); Potassium 3.6 mEq/L (3.5-5.1)
[2024-12-18 16:13] LABS: Specific Gravity 1.026 (1.005-1.030); Sqamous Epithelial <5 /HPF (None Seen); Urine Bacteria None Seen /HPF (<20); Urine Bilirubin NEGATIVE (Negative); Urine Blood 2+ (Negative); Urine Clarity Turbid (Clear); Urine Color Light-Yellow (Yellow); Urine Crystals Unidentified Few /HPF (None Seen); Urine Culture Reflex Order NOT NEEDED; Urine Glucose NEGATIVE (Negative); Urine Ketones NEGATIVE (Negative); Urine Microscopic Reflex YN ORDER UMIC; Urine Mucus 2+ /HPF (None Seen); Urine Nitrite NEGATIVE (Negative); Urine Protein 1+ (Negative); Urine RBC >50 /HPF (None Seen); Urine Urobilinogen Normal (Normal); Urine WBC <5 /HPF (<5); Urine WBC Clump Rare /HPF (None Seen)
--- NOTE | 2024-12-18 16:31 | RAD REPORT ---
EXAMINATION: CT Stone Protocol CLINICAL INDICATION: Male, 19 years old. flank pain, hx of stones TECHNIQUE: CT abdomen and pelvis was performed, without IV contrast, as per department protocol. Axia l, sagittal and coronal reconstructions were obtained. One or more of the following dose reduction techniques were used: Automated exposure control, adjustment of the mA and kV according to the patien t size, and iterative reconstruction. Unless otherwise specified, incidental findings do not require dedicated imaging follow-up. COMPARISON: 11/28/2024 FINDINGS: The lack of intravenous contrast limits the sensitivity of this exam for evaluation of solid visceral organs, vascular structures, and retroperitoneum. LOWER CHEST: The visualized lung bases are clear. LIVER: Normal in size and contour. No focal lesion. BILIARY SYSTEM: No suspicious abnormalities. SPLEEN: Normal size. No focal lesion. PANCREAS: No mass, ductal dilation, or brady-pancreatic fluid. ADRENALS: Normal; no mass. KIDNEYS AND URETERS: Normal size and contour. 5 mm left mid ureter calculus with moderate left hydrou reteronephrosis. Nonobstructing right renal calculi not exceeding 2 to 3 mm.. URINARY BLADDER: Normal contour. GASTROINTESTINAL TRACT: No evidence of bowel obstruction, significant free fluid, free air or abscess . APPENDIX: Normal appendix. LYMPH NODES: No lymphadenopathy. MUSCULOSKELETAL: No acute or suspicious osseous abnormality. ADDITIONAL FINDINGS: None. IMPRESSION: Left moderate hydroureteronephrosis with a 5 mm midureter obstructing calculus. Nonobstructing right renal calculi 2 to 3 mm. THIS REPORT CONTAINS FINDINGS THAT MAY BE CRITICAL TO PATIENT CARE. The findings were verbally commun icated via telephone to Wojciech Palmer MD on 12/18/2024 4:22 PM.
[2024-12-18] MEDS ORDERED: HYDROMORPHONE HCL 1 MG/ML INJ ONE ×2 (16:58→17:46)
--- NOTE | 2024-12-18 18:55 | ER ---
Nurse's Notes [facility] Name: Desmond Hair Age: 19 yrs Sex: Male : 2005 Arrival Date: 12/18/2024 Time: 15:16 Bed 11 Private MD: Diagnosis: Calculus of ureter Presentation: 12/18 15:41 Coronavirus screen: At this time, the client does not indicate any symptoms associated ld1 with coronavirus-19. Ebola Screen: No symptoms or risks identified at this time. Risk Assessment: Do you want to hurt yourself or someone else? Patient reports no desire to harm self or others. Onset of symptoms was December 18, 2024. 15:41 Method Of Arrival: Ambulatory ld1 15:41 Acuity: WILLIS 3 ld1 15:47 Chief complaint: Patient states: Flank pain since yesterday. Feels like I have a kidney ld1 stone again. Initial Sepsis Screen: Does the patient meet any 2 criteria? No. Patient's initial sepsis screen is negative. Does the patient have a suspected source of infection? No. Patient's initial sepsis screen is negative. Triage Assessment: 15:41 General: Appears in no apparent distress. uncomfortable, Behavior is calm, cooperative, ld1 appropriate for age. EENT: No signs and/or symptoms were reported regarding the EENT system. Neuro: Level of Consciousness is awake, alert, obeys commands, Oriented to person, place, time, situation. Cardiovascular: Capillary refill < 3 seconds Patient's skin is warm and dry. Respiratory: Airway is patent Respiratory effort is even, unlabored. GI: Abdomen is flat, non-distended. : No signs and/or symptoms were reported regarding the genitourinary system. Derm: No signs and/or symptoms reported regarding the dermatologic system. Musculoskeletal: No signs and/or symptoms reported regarding the musculoskeletal system. 15:47 Pain: Complains of pain in back and abdomen. ld1 Historical: - Allergies: 15:41 Omnicef; ld1 - PMHx: 15:41 Kidney stone; ld1 - Immunization history:: Adult Immunizations up to date. - Infectious Disease History:: Denies. - Social history:: Smoking status: Patient denies any tobacco usage or history of. - Family history:: not pertinent. - Hospitalizations: : No recent hospitalization is reported. Screenin:54 [facility] ED Fall Risk Assessment (Adult) History of falling in the last 3 months, hb including since admission No falls in past 3 months (0 pts) Confusion or Disorientation No (0 pts) Intoxicated or Sedated No (0 pts) Impaired Gait No (0 pts) Mobility Assist Device Used No (0 pt) Altered Elimination No (0 pt) Score/Fall Risk Level 0 - 2 = Low Risk Oriented to surroundings, Maintained a safe environment, Educated pt \T\ family on fall prevention, incl call for assistance when getting out of bed. Abuse screen: Denies threats or abuse. Denies injuries from another. Nutritional screening: No deficits noted. Tuberculosis screening: No symptoms or risk factors identified. Assessment: 15:54 General: Appears in no apparent distress. Behavior is calm, cooperative. Pain: Pain hb currently is 10 out of 10 on a pain scale. Neuro: Level of Consciousness is awake, alert, obeys commands, Oriented to person, place, time, situation. Cardiovascular: Patient's skin is warm and dry. Respiratory: Respiratory effort is even, unlabored, Respiratory pattern is regular, symmetrical. 16:53 Reassessment: Patient appears in no apparent distress at this time. Patient and/or hb family updated on plan of care and expected duration. Pain level reassessed. Patient is alert, oriented x 3, equal unlabored respirations, skin warm/dry/pink. 17:55 Reassessment: No changes from previously documented assessment. Restless, c/o flank hb pain. 19:18 Reassessment: Patient appears in no apparent distress at this time. Patient and/or hb family updated on plan of care and expected duration. Pain level reassessed. Patient is alert, oriented x 3, equal unlabored respirations, skin warm/dry/pink. Vital Signs: 15:47 BP 142 / 76; Pulse 94; Resp 18; Temp 98.1(TE); Pulse Ox 100% on R/A; Weight 90.72 kg; ld1 Height 5 ft. 8 in. ; Pain 10/10; 16:53 BP 142 / 72; Pulse 89; Resp 16; Pulse Ox 99% on R/A; Pain 9/10; hb 19:00 BP 130 / 85; Pulse 80; Resp 18; Temp 97.5; Pulse Ox 100% on R/A; Pain 8/10; hb 15:47 Body Mass Index 30.41 (90.72 kg, 172.72 cm) ld1 15:47 Pain Scale: Adult ld1 16:53 Pain Scale: Adult hb 19:00 Pain Scale: Adult hb ED Course: 15:18 Patient arrived in ED. al6 15:21 Wojciech Palmer MD is Attending Physician. rn 15:33 CT Stone Protocol In Process Unspecified. EDMS 15:41 Arm band placed on right wrist. ld1 15:42 Triage completed. ld1 15:53 Kareen Langford, RN is Primary Nurse. hb 15:54 Patient has correct armband on for positive identification. Bed in low position. Call hb light in reach. Provided Education on: mediations, tests, result times. 15:54 Basic Metabolic Panel Sent. hb 15:54 CBC with Diff Sent. hb 15:54 Initial lab(s) drawn, by me, sent to lab. Inserted saline lock: 20 gauge in right hb antecubital area, using aseptic technique. Blood collected. Flushed with 10 mL NS. 18:54 Trung Mckeon MD is Hospitalizing Provider. rn Administered Medications: 15:53 Drug: Magnesium Sulfate IVPB 1 grams IVPB once over 1 hrs Route: IVPB; Infused Over: 1 hb hrs; Site: right antecubital; 16:45 Follow up: Response: No adverse reaction; IV Status: Completed infusion; IV Intake: hb 100ml 15:53 Drug: Flomax PO 0.4 mg PO once Route: PO; hb 16:45 Follow up: Response: No adverse reaction hb 15:54 Drug: morphine IVP or IV 4 mg IVP once over 4 mins Route: IVP; Infused Over: 4 mins; hb Site: right antecubital; 16:30 Follow up: Response: No adverse reaction hb 15:54 Drug: Ondansetron IVP 4 mg IVP once; over 2 minutes Route: IVP; Site: right antecubital;hb 16:15 Follow up: Response: No adverse reaction; Pain is unchanged, physician notified; RASS: hb Restless (+1) 16:06 Drug: fentaNYL (PF) IVP 50 mcg IVP once Route: IVP; Site: right antecubital; hb 16:36 Follow up: Response: No adverse reaction; Pain is unchanged, physician notified; RASS: hb Restless (+1) 17:01 Drug: HYDROmorphone IVP 1 mg IVP once Route: IVP; Site: right antecubital; hb 17:45 Follow up: Response: No adverse reaction; Pain is unchanged, physician notified; RASS: hb Restless (+1) 17:53 Drug: HYDROmorphone IVP 1 mg IVP once Route: IVP; Site: right antecubital; hb 19:24 Drug: Ondansetron IVP 4 mg IVP once; over 2 minutes Route: IVP; Site: right antecubital;hb Medication: 15:54 VIS not applicable for this client. hb Intake: 16:45 IV: 100ml; Total: 100ml. hb Outcome: 18:55 Decision to Hospitalize by Provider. rn 20:39 Admitted to Med/surg accompanied by ricardo rojas 20:39 Condition: stable 20:39 Discharge instructions given to patient, Instructed on discharge instructions, the need for admit, Demonstrated understanding of instructions, medications, 20:40 Patient left the ED. kb3 Signatures: Dispatcher [employer] EDMS Wojciech Palmer MD MD rn Baxter, Heather, RN RN Sis Mendoza RN RN [email or web address] Bekah Romano RN RN kb3 Rea Haque6
--- NOTE | 2024-12-18 18:55 | EDPHYS ---
Physician Documentation [facility] Name: Desmond Hair Age: 19 yrs Sex: Male : 2005 Arrival Date: 12/18/2024 Time: 15:16 Bed 11 Private MD: ED Physician Wojciech Palmer HPI: 12/18 16:06 This 19 yrs old Male presents to ER via Ambulatory with complaints of Possible rn Kidney Stone. 16:06 The patient complains of pain in the left mid back. Onset: The symptoms/episode rn began/occurred this morning. Modifying factors: The symptoms are alleviated by nothing. the symptoms are aggravated by nothing. The patient has experienced similar episodes in the past. Patient reports left flank pain that began this morning around 8 AM. Has a history of kidney stones and feels identical. Patient denies previous intervention and states he has been able to pass them previously. Associated with nausea.. Historical: - Allergies: 15:41 Omnicef; ld1 - PMHx: 15:41 Kidney stone; ld1 - Immunization history:: Adult Immunizations up to date. - Infectious Disease History:: Denies. - Social history:: Smoking status: Patient denies any tobacco usage or history of. - Family history:: not pertinent. - Hospitalizations: : No recent hospitalization is reported. ROS: 16:06 Constitutional: Negative for fever, chills, and weight loss, Cardiovascular: Negative rn for chest pain, palpitations, and edema, Respiratory: Negative for shortness of breath, cough, wheezing, and pleuritic chest pain, Abdomen/GI: Positive for nausea Back: Positive for left flank pain MS/Extremity: Negative for injury and deformity, Skin: Negative for injury, rash, and discoloration, Neuro: Negative for headache, weakness, numbness, tingling, and seizure, Exam: 16:06 Constitutional: This is a well developed, well nourished patient who is awake, alert, rn appears uncomfortable Cardiovascular: Regular rate and rhythm. No pulse deficits. Respiratory: Hyperventilating due to pain Neuro: Awake and alert, GCS 15 Vital Signs: 15:47 BP 142 / 76; Pulse 94; Resp 18; Temp 98.1(TE); Pulse Ox 100% on R/A; Weight 90.72 kg; ld1 Height 5 ft. 8 in. ; Pain 10/10; 16:53 BP 142 / 72; Pulse 89; Resp 16; Pulse Ox 99% on R/A; Pain 9/10; hb 19:00 BP 130 / 85; Pulse 80; Resp 18; Temp 97.5; Pulse Ox 100% on R/A; Pain 8/10; hb 15:47 Body Mass Index 30.41 (90.72 kg, 172.72 cm) ld1 15:47 Pain Scale: Adult ld1 16:53 Pain Scale: Adult hb 19:00 Pain Scale: Adult hb MDM: 15:21 Medical Screening Exam initiated rn 18:53 Differential diagnosis: nephrolithiasis, UTI. 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 Consideration of Admission/Observation Patient was admitted/placed on observation. Escalation of care including admission/observation considered. Counseling: I had a detailed discussion with the patient and/or guardian regarding the historical points, exam findings, and any diagnostic results supporting the discharge/admit diagnosis, lab results, radiology results, the need for further work-up and treatment in the hospital. Response to treatment: the patient's symptoms have mildly improved after treatment. ED course: Pain not well-controlled, has 5 mm mid ureteral stone with mild to moderate hydro. Likely will not need intervention but patient has been monitored here for 4 hours and not able to get him home safely and pain controlled. Will admit to hospitalist service for further care. 12/18 15:21 Order name: Urinalysis w/ reflexes; Complete Time: 17:00 rn 12/18 15:21 Order name: CBC with Diff rn 12/18 15:21 Order name: Basic Metabolic Panel; Complete Time: 17:00 rn 12/18 19:23 Order name: Urinalysis w/ reflexes EDMS 12/18 19:23 Order name: CBC with Automated Diff EDMS 12/18 19:23 Order name: CBC with Automated Diff EDMS 12/18 19:23 Order name: Comprehensive Metabolic Panel EDOR 12/18 19:23 Order name: Comprehensive Metabolic Panel EDOR 12/18 15:21 Order name: CT Stone Protocol; Complete Time: 17:00 rn 12/18 15:21 Order name: IV Start; Complete Time: 15:47 rn Administered Medications: 15:53 Drug: Magnesium Sulfate IVPB 1 grams IVPB once over 1 hrs Route: IVPB; Infused Over: 1 hb hrs; Site: right antecubital; 16:45 Follow up: Response: No adverse reaction; IV Status: Completed infusion; IV Intake: hb 100ml 15:53 Drug: Flomax PO 0.4 mg PO once Route: PO; hb 16:45 Follow up: Response: No adverse reaction hb 15:54 Drug: morphine IVP or IV 4 mg IVP once over 4 mins Route: IVP; Infused Over: 4 mins; hb Site: right antecubital; 16:30 Follow up: Response: No adverse reaction hb 15:54 Drug: Ondansetron IVP 4 mg IVP once; over 2 minutes Route: IVP; Site: right antecubital;hb 16:15 Follow up: Response: No adverse reaction; Pain is unchanged, physician notified; RASS: hb Restless (+1) 16:06 Drug: fentaNYL (PF) IVP 50 mcg IVP once Route: IVP; Site: right antecubital; hb 16:36 Follow up: Response: No adverse reaction; Pain is unchanged, physician notified; RASS: hb Restless (+1) 17:01 Drug: HYDROmorphone IVP 1 mg IVP once Route: IVP; Site: right antecubital; hb 17:45 Follow up: Response: No adverse reaction; Pain is unchanged, physician notified; RASS: hb Restless (+1) 17:53 Drug: HYDROmorphone IVP 1 mg IVP once Route: IVP; Site: right antecubital; hb 19:24 Drug: Ondansetron IVP 4 mg IVP once; over 2 minutes Route: IVP; Site: right antecubital;hb Disposition Summary: 12/18/24 18:55 Hospitalization Ordered Notes: Hospitalization Status: Observation rn Provider: Trung Mckeon rn Location: Telemetry/MedSurg (observation) rn Condition: Stable rn Problem: new rn Symptoms: are unchanged rn Bed/Room Type: Standard rn Room Assignment: 206(12/18/24 19:28) cg Diagnosis - Calculus of ureter rn Forms: - Medication Reconciliation Form rn - SBAR form rn - Leadership Thank You Letter rn Signatures: Dispatcher [employer] Wojciech Tony MD MD rn Garcia, Cindy, RN RN cg Baxter, Kareen, RN RN Sis Lombardi RN RN ld1 Corrections: (The following items were deleted from the chart) 19:28 18:55 gilberto de
[2024-12-18] MEDS ORDERED: ACETAMINOPHEN 325 MG TABLET PO PRN (19:11)
--- NOTE | 2024-12-18 19:11 | P.HP ---
Certification for Inpatient Patient admitted to: Inpatient With expected LOS: >2 Midnights Practitioner: I am a practitioner with admitting privileges, knowledge of patient current condition, hospital course, and medical plan of care. Services: Services provided to patient in accordance with Admission requirements found in Title 42 Section 412.3 of the Code of Federal Regulations Patient History Date of Service: 12/18/24 Reason for admission: Ureteric Stone and colic History of Present Illness: 19 yrs old Male with past medical history of kidney stones came into ER with pain of the left flank and lower abdomen which started this morning and has been progressively getting worse. Pain is sharp 10 out of 10 in severity located in left flank radiating to the back. Associated with some nausea but no vomiting. No dysuria. No fever or chills. No vomiting or diarrhea. No sick contacts. Patient had similar episodes in the past and diagnosed with ureteric stones and had passed stones in the past Patient was assessed in the ER and was found to have leukocytosis and left ureteric stone with hydronephrosis and was admitted. Allergies cefdinir [From [employer]] Allergy (Unverified 09/19/16 14:22) Unknown Home medications list reviewed: Yes Home Medications: Cetirizine HCl [Zyrtec] 10 mg PO DAILY 09/19/16 Lisdexamfetamine Dimesylate [Vyvanse] 30 mg PO DAILY 09/19/16 Mometasone Furoate [Nasonex] 17 gm NS DAILY 09/19/16 Naphazoline HCl/Pheniramine [Eye Allergy Relief Drops] 15 ml OP DAILY 09/19/16 - Past Medical/Surgical History Past Medical History: Reviewed- Non-Contributory - Family History Family History: Reviewed- Non-Contributory - Social History Smoking Status: Never smoker Review of Systems 10-point ROS is otherwise unremarkable Physical Examination - Vital Signs Temperature: 97.8 F Blood Pressure: 126/72 Pulse: 88 Respirations: 18 Pulse Ox (%): 94 - Physical Exam General: Alert, Oriented x3, Moderate distress HEENT: Atraumatic, Normocephalic Respiratory: Clear to auscultation bilaterally, Normal air movement Cardiovascular: Regular rate/rhythm, Normal S1 S2 Capillary refill: <2 Seconds Gastrointestinal: Soft and benign, W/out hepatosplenomegaly, No masses, Tenderness Musculoskeletal: No clubbing, No swelling Integumentary: No rashes Neurological: Normal strength at 5/5 x4 extr, Cranial nerves 3-12 intact, Normal reflexes 2+ Lymphatics: No axilla or inguinal lymphadenopathy - Studies Laboratory Data (last 24 hrs) 12/18/24 12/18/24 15:52 15:52 WBC 19.20 H Hgb 15.8 Hct 45.5 Plt Count 278 Sodium 138 Potassium 3.6 BUN 12 Creatinine 1.18 Glucose 115 H Assessment and Plan - Plan Left ureteric colic CT findings noted 5 mm ureteric stone with hydronephrosis left side Pain control IV hydration Started on Flomax Possibly consult urology if pain is not controlled and symptoms resolved Leukocytosis Monitor CBC in a.m. Will hold back on antibiotic for now UA is negative GI/DVT prophylaxis Advanced directive full code Discharge Plan: Home Plan to discharge in: 48 Hours - Advance Directives Does patient have a Living Will: No Does patient have a Durable POA for Healthcare: No - Code Status/Comfort Care Code Status: Full Code Time Spent Managing Pts Care (In Minutes): 54
[2024-12-18] MEDS ORDERED: MORPHINE 2 MG/ML SYR ONE (20:19)
[2024-12-18] MEDS ORDERED: NA CHLORIDE 0.9% 1,000 ML ONE (20:19)
[2024-12-18] MEDS: NA CHLORIDE 0.9% 1,000 ML IV SCH (20:35)
[2024-12-18] MEDS: MORPHINE 2 MG/ML SYR IV PRN (20:35)
[2024-12-18] MEDS: HYDROMORPHONE HCL 1 MG/ML INJ IV ONE (22:05)
[2024-12-18] MEDS: TAMSULOSIN 0.4 MG SR CAP PO SCH (22:05)
[2024-12-19 00:07] VITALS: BMI 29.5
[2024-12-19] MEDS: MORPHINE 4 MG/ML SYR IV PRN ×2 (02:39→10:40)
[2024-12-19 04:56] LABS: Absolute Eosinophils 0.1 K/uL (0-0.5); Absolute Lymphocytes (CBC) 1.9 K/uL (0.7-4.9); Absolute Monocytes 1.4 K/uL (0.1-1.3); Absolute Neutrophil 8.9 K/uL (1.8-8.0); Basophils % 0.2 % (0-1.3); Eosinophils % 0.5 % (0-4.4); Hematocrit 39.7 % (39.6-49.0); Hemoglobin 13.7 g/dL (13.6-17.9); Lymphocytes % 15.7 % (15.3-44.8); MCH 29.6 pg (27.0-35.0); MCHC 34.4 g/dL (32.0-36.0); MCV 86.1 fL (80-100); MPV 10.7 fL (7.6-11.3); Neutrophils % 72.6 % (41.7-73.7); Platelets 210 thou/uL (152-406); RBC Red Blood Cell Count 4.61 M/uL (4.33-5.43); Red Cell Distribution Width 12.8 % (12.1-15.2)
[2024-12-19 05:13] LABS: Albumin 3.6 g/dL (3.4-5.0); Albumin/Globulin Ratio 1.2 (1.1-1.8); Anion Gap 10.9 mEq/L (5.0-15.0); Bilirubin Total 0.5 mg/dL (0.2-1.0); Potassium 3.9 mEq/L (3.5-5.1); Protein, Total 6.6 g/dL (6.4-8.2)
[2024-12-19] MEDS: HYDROCODONE/APAP 5/325 MG TAB PO PRN (08:15)
--- NOTE | 2024-12-19 09:28 | P.PN ---
Date of Service: 12/19/24 Subjective: pain is similar to last ER visit, but more severe this time reports some nausea and vomiting, mainly triggered by pain pain better than yesterday - but requiring IV pain medication Passed a tiny stone 3-4 days ago, stating he visibly saw the stone in his toilet at home. UOP improving ROS: 10 point ROS as noted above, otherwise negative Physical Exam: GEN: Alert, oriented, appears uncomfortable CV: Regular rate and rhythm, no edema Pulm: Nonlabored respirations on room air, clear bilaterally ABD: soft, L flank tenderness Neuro: Normal speech, normal affect Problem List: Left ureteral colic secondary to 5mm obstructing midureter stone with moderate left-sided hydroureteronephrosis h/o recurrent kidney stones On admission, presents with left flank, lower abdominal pain radiating to the back. +nausea/vomiting. Denies dysuria/diarrhea. CT abd/pelvis (12/18): Left moderate hydroureteronephrosis with a 5 mm midureter obstructing calculus. +Nonobstructing right renal calculi 2 to 3 mm. Had similar episode [address] abdomen last month noted mild-moderate hydro with 5mm stone along proximal left ureter. (11/28/24) Reports passing multiple stones since he was younger (10+ stones). Multiple family members have dealt with stones in the past. Passed a tiny stone 3-4 days ago, stating he visibly saw the stone in his toilet at home continue flomax; started 12/18 pain control, IVF Renal function normal. Continue to monitor renal function, electrolytes. No urology on callj currently not septic, no evidence of infxn, and has normal renal function if develops signs of sepsis or worsening obstruction / renal fxn, will need to transfer for urology 12/19 - Feels pain is more severe this hospitalization compared to last month. Leukocytosis improving, afebrile. Daily labs. - improved without any antibiotics IV morphine increased; wean as tolerated. IVF increased VTE: SCD for now Code: Full Dispo: Home, ~1-2 days Pending improvement/stability, leukocytosis resolves, pain control Time Spent Managing Pts Care (In Minutes): 55
[2024-12-19] MEDS: NA CHLORIDE 0.9% 1,000 ML IV SCH (15:51)
[2024-12-19] MEDS: HYDROMORPHONE HCL 0.5 MG/0.5 ML INJ IV PRN (23:01)
[2024-12-20 05:46] LABS: Absolute Eosinophils 0.4 K/uL (0-0.5); Absolute Monocytes 0.7 K/uL (0.1-1.3); Absolute Neutrophil 3.2 K/uL (1.8-8.0); Basophils % 0.6 % (0-1.3); Hematocrit 38.1 % (39.6-49.0); Hemoglobin 12.8 g/dL (13.6-17.9); Lymphocytes % 41.8 % (15.3-44.8); MCH 29.9 pg (27.0-35.0); MCHC 33.8 g/dL (32.0-36.0); MCV 88.4 fL (80-100); MPV 10.9 fL (7.6-11.3); Monocytes % 8.9 % (3.3-12.3); Neutrophils % 43.7 % (41.7-73.7); Nucleated Red Blood Cells % 0.1 % (0-0); Platelets 196 thou/uL (152-406); Red Cell Distribution Width 13.2 % (12.1-15.2)
[2024-12-20 05:52] LABS: Magnesium 1.9 mg/dL (1.6-2.4)
--- NOTE | 2024-12-20 09:16 | P.PN ---
Date of Service: 12/20/24 Subjective: Pain comes and goes in waves, seems to feel worse during the night per patient. feels pain is starting to move more towards his left side away from back. doesn't feel worse, but still needing frequent IV pain meds afebrile ROS: 10 point ROS as noted above, otherwise negative Physical Exam: GEN: Alert, oriented, appears uncomfortable CV: Regular rate and rhythm, no edema Pulm: Nonlabored respirations on room air, clear bilaterally ABD: soft, L flank tenderness Neuro: Normal speech, normal affect Problem List: Left ureteral colic secondary to 5mm obstructing midureter stone with moderate left-sided hydroureteronephrosis h/o recurrent kidney stones On admission, presents with left flank, lower abdominal pain radiating to the back. +nausea/vomiting. Denies dysuria/diarrhea. CT abd/pelvis (12/18): Left moderate hydroureteronephrosis with a 5 mm midureter obstructing calculus. +Nonobstructing right renal calculi 2 to 3 mm. Had similar episode [address] abdomen last month noted mild-moderate hydro with 5mm stone along proximal left ureter. (11/28/24) Reports passing multiple stones since he was younger (10+ stones). Multiple family members have dealt with stones in the past. Passed a tiny stone 3-4 days ago, stating he visibly saw the stone in his toilet at home continue flomax; started 12/18 pain control, IVF Renal function normal. Continue to monitor renal function, electrolytes. 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 Leukocytosis improving, afebrile. Daily labs - improved without any antibiotics IV morphine increased; wean as tolerated. IVF increased 12/20 - Leukocytosis resolved off antibiotics. Renal function stable, wnl. Pain starting to move away from back and towards left side. Still requiring round the clock IV pain meds, but pain not worse per patient. Morphine switched to dilaudid overnight. Continue to monitor. VTE: SCD for now Code: Full Dispo: Home, ~1-2 days Pending better pain control, off IV pain meds. Time Spent Managing Pts Care (In Minutes): 55
[2024-12-20] MEDS: NA CHLORIDE 0.9% 1,000 ML IV SCH (18:15)
[2024-12-21 04:52] LABS: Absolute Basophils 0.1 K/uL (0-0.5); Absolute Eosinophils 0.5 K/uL (0-0.5); Absolute Lymphocytes (CBC) 2.6 K/uL (0.7-4.9); Absolute Monocytes 0.8 K/uL (0.1-1.3); Absolute Neutrophil 3.5 K/uL (1.8-8.0); Basophils % 1.4 % (0-1.3); Eosinophils % 6.6 % (0-4.4); Hematocrit 40.2 % (39.6-49.0); Hemoglobin 13.5 g/dL (13.6-17.9); Lymphocytes % 34.9 % (15.3-44.8); MCH 29.5 pg (27.0-35.0); MCHC 33.6 g/dL (32.0-36.0); MCV 87.9 fL (80-100); Monocytes % 10.3 % (3.3-12.3); Neutrophils % 46.8 % (41.7-73.7); Nucleated Red Blood Cells % 0.1 % (0-0); Platelets 205 thou/uL (152-406); RBC Red Blood Cell Count 4.58 M/uL (4.33-5.43); Red Cell Distribution Width 12.9 % (12.1-15.2)
[2024-12-21 05:12] LABS: Anion Gap 7.9 mEq/L (5.0-15.0); Magnesium 1.8 mg/dL (1.6-2.4); Potassium 3.9 mEq/L (3.5-5.1)
[2024-12-21] MEDS: MAGNESIUM SULFATE 1 gm IVPB 1 GM/100 ML BAG IV ONE (08:19)
[2024-12-21] MEDS: POTASSIUM CL SA 10 MEQ TAB PO ONE (08:19)
--- NOTE | 2024-12-21 11:28 | P.PN ---
Date of Service: 12/21/24 Subjective: feels pain is improving pain slightly more along flank, less in back afebrile ROS: 10 point ROS as noted above, otherwise negative Physical Exam: GEN: Alert, oriented, appears mildly uncomfortable CV: Regular rate and rhythm, no edema Pulm: Nonlabored respirations on room air, clear bilaterally ABD: soft, L flank tenderness Neuro: Normal speech, normal affect Problem List: Left ureteral colic secondary to 5mm obstructing midureter stone with moderate left-sided hydroureteronephrosis h/o recurrent kidney stones On admission, presents with left flank, lower abdominal pain radiating to the back. +nausea/vomiting. Denies dysuria/diarrhea. CT abd/pelvis (12/18): Left moderate hydroureteronephrosis with a 5 mm midureter obstructing calculus. +Nonobstructing right renal calculi 2 to 3 mm. Had similar episode [address] abdomen last month noted mild-moderate hydro with 5mm stone along proximal left ureter. (11/28/24) Reports passing multiple stones since he was younger (10+ stones). Multiple family members have dealt with stones in the past. Passed a tiny stone 3-4 days ago, stating he visibly saw the stone in his toilet at home continue flomax; started 12/18 pain control, IVF Renal function normal. Continue to monitor renal function, electrolytes. 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 Leukocytosis improving, afebrile. Daily labs - improved without any antibiotics IV morphine increased; wean as tolerated. IVF increased 12/20 - Leukocytosis resolved off antibiotics. Renal function stable, wnl. Pain starting to move away from back and towards left side. Still requiring round the clock IV pain meds, but pain not worse per patient. Morphine switched to dilaudid overnight. IVF decreased 12/21 - Pain improving. Continue to monitor for worsening symptoms. originally seen in [place] [facility] on 11/23/24 for this issue, now 1 month later, still with stone continue current management, will reach out to urology VTE: SCD for now Code: Full Dispo: Home, ~1-2 days Time Spent Managing Pts Care (In Minutes): 55
[2024-12-22 05:51] LABS: Absolute Basophils 0.1 K/uL (0-0.5); Absolute Eosinophils 0.5 K/uL (0-0.5); Absolute Lymphocytes (CBC) 2.4 K/uL (0.7-4.9); Absolute Monocytes 0.6 K/uL (0.1-1.3); Absolute Neutrophil 3.4 K/uL (1.8-8.0); Basophils % 0.9 % (0-1.3); Eosinophils % 6.4 % (0-4.4); Hemoglobin 13.9 g/dL (13.6-17.9); Lymphocytes % 34.6 % (15.3-44.8); MCH 29.5 pg (27.0-35.0); MPV 10.5 fL (7.6-11.3); Neutrophils % 49.1 % (41.7-73.7); Nucleated Red Blood Cells % 0.1 % (0-0); Platelets 219 thou/uL (152-406); RBC Red Blood Cell Count 4.71 M/uL (4.33-5.43); Red Cell Distribution Width 12.9 % (12.1-15.2)
[2024-12-22 06:04] LABS: Magnesium 1.9 mg/dL (1.6-2.4)
--- NOTE | 2024-12-22 14:08 | P.PN ---
Subjective Date of Service: 12/22/24 Chief Complaint: Ureteric Stone and colic Patient denies any complaint. He reports intermittent left flank pain. He denies any nausea or vomiting and he is tolerating diet. Physical Examination - Vital Signs Temperature: 98.1 F Blood Pressure: 105/58 Pulse: 64 Respirations: 20 Pulse Ox (%): 97 Assessment And Plan - Plan Physical Exam: GEN: Alert, oriented, NAD CV: Regular rate and rhythm, no edema Pulm: Nonlabored respirations on room air, clear bilaterally ABD: soft, no abdominal tenderness, normal bowel sounds. Musculoskeletal: Left flank tenderness. Neuro: Normal speech, normal affect Problem List: Left ureteral colic secondary to 5mm obstructing midureter stone with moderate left-sided hydroureteronephrosis h/o recurrent kidney stones CT abd/pelvis (12/18): Left moderate hydroureteronephrosis with a 5 mm midureter obstructing calculus. +Nonobstructing right renal calculi 2 to 3 mm. Had similar episode [address] abdomen last month noted mild-moderate hydro with 5mm stone along proximal left ureter. (11/28/24) Reports passing multiple stones since he was younger (10+ stones). Multiple family members have dealt with stones in the past. Passed a tiny stone 3-4 days ago, stating he visibly saw the stone in his toilet at home On Flomax Renal function normal. Continue to monitor renal function, electrolytes. 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 Leukocytosis improving, afebrile. Daily labs - improved without any antibiotics IV morphine increased; wean as tolerated. IVF increased 12/20 - Leukocytosis resolved off antibiotics. Renal function stable, wnl. Pain starting to move away from back and towards left side. Still requiring round the clock IV pain meds, but pain not worse per patient. Morphine switched to dilaudid overnight. IVF decreased 12/21 - Pain improving. Continue to monitor for worsening symptoms. originally seen in [facility] on 11/23/24 for this issue, now 1 month later, still with stone continue current management, will reach out to urology 12/22 Renal function has been normal Patient's symptoms is intermittent. Leukocytosis resolved No UTI Patient to be evaluated by urology Dr. John for possible intervention. Start empiric antibiotics prior to any urology procedure as inpatient. VTE: SCD for now Code: Full Dispo: Home
[2024-12-22] MEDS: CIPROFLOXACIN 400mg IV 400 MG/200 ML BAG IV SCH (14:30)
--- NOTE | 2024-12-22 14:52 | P.CNS ---
Date of Consult: 12/22/24 Reason for Consult: Obstructive ureterolithiasis Requesting Physician: Zheng Palmer Chief Complaint: Ureteric Stone and colic History of Present Illness: 19-year-old gentleman with asthma presents as a recurrent stone former for the second time to the emergency department. He was initially seen nearly a month ago and did not seek follow-up because he has passed multiple stones since he was 13 years old, likely greater than 20 stone events, and has never required surgical intervention. On this most recent occasion, he was admitted because of the pain. The pain remains in the left flank and does not radiate at this point. He denies any associated fever or chills, and no nausea or vomiting. At this point, his pain was well-controlled. Past medical history: Asthma as above Past surgical history: T&A Family history: Denies urologic malignancy Social history: He vapes but denies history of cigarette smoking. Former marijuana user, but he denies recreational drug use at this point. Examination: Well-appearing, well-developed, well-nourished, no acute distress Alert, awake, oriented x 3 No dyspnea or sign of respiratory distress Abdomen soft, nontender, moderately obese Pulse 2+ radial and regular Seated comfortably within the hospital bed Labs reviewed with normal renal function 12/18/2024 CT abdomen and pelvis stone protocol (my review of the imaging): 5 to 6 mm mid left ureteral calculus with moderate hydronephrosis. Right Johnnie's plaque calcification noted approximately 2 mm. No right-sided hydronephrosis. No additional left nephrolithiasis. Assessment and recommendation: 19-year-old gentleman with asthma, recurrent stone former now with approximately 1 month of left obstructive ureterolithiasis and intractable pain requiring admission. -I counseled the patient extensively for over 25 minutes in and over 35-minute consultation event. I explained the potential risk of chronic kidney damage associated with persistent obstruction more than 30 days and the risk of ureteral stricture disease associated with impaction of a ureteral calculus. To that end, because the patient was also uninsured and failed to seek outpatient consultation after his initial emergency department visit and despite having over 20 episodes of prior stone events, 1 of which took over 2-1/2 months to pass, and since the stone has been present now for a month without significant downward progression, it was reasonable to consider surgical intervention at this point. I counseled him on the importance of working out either emergency Medicaid or other form of insurance, since there was a significant risk he may require additional surgical evaluation and management beyond today, especially if we are only able to place a stent today. Additionally, he would require outpatient metabolic stone profile assessment to decipher his underlying etiology of recurrent nephrolithiasis. All of this will require him to be ensured in addition to the potential need for outpatient stent extraction. -As far as surgical intervention today, I explained the recommendation for the following: Cystoscopy with left retrograde pyelography and left ureteral stent placement, possible ureteroscopy with laser lithotripsy. Risks of the procedure were discussed to include failure to place a stent and need for percutaneous nephrostomy tube, ureteral injury or avulsion, ureteral stricture, urethral stricture, gross hematuria, infection/sepsis. -N.p.o. from clear liquids and we will plan operative management within the next 3 hours. Allergies cefdinir [From [employer]] Allergy (Verified 12/18/24 22:12) Rash Home medications list reviewed: Yes Home Medications: NK [No Home Meds] 12/18/24 - Past Medical/Surgical History Diabetic: No -: tonsillectomy - Social History CD- Drugs: No Place of Residence: Home Physical Examination Temp Pulse Resp BP Pulse Ox 98.1 F 64 20 105/58 L 97 12/22/24 14:08 12/22/24 14:08 12/22/24 14:08 12/22/24 14:08 12/22/24 14:08 - Problems (1) Ureterolithiasis Current Visit: Yes Status: Acute (2) Recurrent nephrolithiasis Current Visit: Yes Status: Acute (3) Left flank pain Current Visit: Yes Status: Acute (4) Hydronephrosis, left Current Visit: Yes Status: Acute Critical Care: No Time Spent Managing Pts care (In Minutes): 35
[2024-12-22] MEDS ORDERED: propofoL 200 MG/20 ML VIAL IV ONE (16:09)
[2024-12-22] MEDS ORDERED: ONDANSETRON 4 MG/2 ML VIAL ONE (16:09)
[2024-12-22] MEDS ORDERED: FENTANYL CITR 100 MCG/2 ML ONE (16:10)
[2024-12-22] MEDS ORDERED: MIDAZOLAM HCL 2 MG/2 ML INJ ONE (16:10)
[2024-12-22] MEDS ORDERED: LIDOCAINE 1% MPF 5 ML VIAL ONE (16:12)
--- NOTE | 2024-12-22 17:12 | RAD REPORT ---
Fluoroscopy time 0.17 minutes
[2024-12-22] MEDS: HYDROMORPHONE HCL 1 MG/ML INJ ONE ×3 (17:15→17:38)
--- NOTE | 2024-12-22 17:38 | P.OP ---
Date of Service: 12/22/24 Preoperative diagnoses: Intractable left flank pain Left obstructive ureterolithiasis Recurrent nephrolithiasis Postoperative diagnoses: Intractable left flank pain Left obstructive ureterolithiasis Recurrent nephrolithiasis Meatal stenosis Principal procedures: Cystoscopy Left retrograde pyelography Left ureteroscopy with laser lithotripsy Left 6 Slovak by 26 cm double-J ureteral stent exchange Meatal dilation using sounds Indication for procedure: 19-year-old gentleman with asthma, recurrent stone former now with approximately 1 month of left 6 mm obstructive ureterolithiasis and intractable pain requiring admission. Procedure note: The patient was consented in the preoperative holding area before being transferred to the operative suite where general anesthesia was induced. He was given ciprofloxacin for 100 mg IV antimicrobial prophylaxis, as he was being provided on the floor. Pneumoboots were provided for DVT prophylaxis. He was placed in the lithotomy position, padded and secured to the table appropriately. His genitalia was prepped with Hibiclens and he was draped in standard fashion. The case has begun attempting to pass a 22 Slovak rigid cystoscope via his meatus, but there was bridging in the dorsal aspect of the meatus and meatal stenosis inferiorly. As a result, I utilized urethral sounds to dilate the true meatus from 20 Slovak to 24 Slovak with relative ease. I was then able to pass the 22 Slovak rigid cystoscope via his urethra into his bladder with ease. I decompressed of fluid and urine and surveyed the bladder. No papillary mucosal lesions, foreign bodies, or stones were noted throughout. I cannulated the tip of the left ureteral orifice using a sensor wire over which I passed a 5 Slovak ureteral access catheter. Left retrograde pyelography: Using a 70: 30 mixture of Omnipaque and saline, contrast was injected via the lumen of the 5 Slovak ureteral access catheter and did propagate up the distal into the mid ureter where there was a subtle filling defect observed before entering the proximal ureter and ultimately the renal pelvis and calyces. I passed a sensor wire via the 5 Slovak ureteral access catheter and under live fluoroscopic imagery, I observed the wire go beyond the stone and coil within the upper pole of the collecting system on the left. I then removed the cystoscope leaving the wire in place and took out the 5 Slovak ureteral access catheter passing over the sensor wire a dual-lumen catheter. I injected contrast via the second lumen of the dual-lumen catheter to confirm the appropriate intraluminal location of the dual-lumen catheter, and then I passed a Bentson guidewire via the second lumen of the dual-lumen catheter up the ureter until it reached a point of obstruction initially in the mid ureter where the filling defect had been. With some manipulation, I was able to navigate the Bentson guidewire beyond the point of obstruction/filling defect and ultimately into the upper pole calyx coiled alongside the indwelling sensor wire. I then advanced the dual-lumen catheter up to the level of the filling defect/obstruction to allow dilation of the ureter for a couple of minutes. I then remove the dual-lumen catheter and performed direct vision semirigid ureteroscopy via the urethra into his bladder and into the left ureteral o rifice. I was able to navigate the ureteroscope under pressurized irrigation all the way up the distal into the mid ureter where I encountered the obstructing calculus. I then utilized a 272 nm laser fiber at a power setting of 0.4 J and 10 Hz to begin to fragment the stone. I then increased the power to 0.6 J and 10 Hz before ultimately increasing to 15 Hz to completely fragment the stone into dust the size of particles that would easily pass without pain. Once the stone had been handled and no additional calculi of significance were in the kidney on the left, I then remove the ureteroscope ensuring no ureteral injury on the way out, and then backloaded the cystoscope over the indwelling sensor safety wire. I then passed a 6 Slovak by 26 cm double-J ureteral stent over the sensor wire ultimately into the upper pole of the collecting system on the left, coiling it they are with an additional coil formed cystoscopically in his bladder. I left the stent tether to a string which after decompressing his bladder fluid and urine, was allowed to exit the urethra and was secured to the glans penis and the shaft using Mastisol and Steri-Strips. He was then taken out of the lithotomy position before being awakened from general anesthesia. He was then transferred to a stretcher before being transferred to the recovery room in good condition. Complications: None Discharge disposition: He should strain his urine to collect any stone dust from the fragments created today when I blasted the his stone. Many of those fragments may not pass until after the stent has been extracted. He should strain his urine again at that time. Meanwhile, since he has a tethered ureteral stent, I would like for him to keep this in place until Saturday or the following Saturday. Because he lacks insurance and has arranged to have insurance start on January 05, it may be difficult for him to come into an office setting between now and then. So I will ask that our urology clinic medical assistants work with the patient and his girlfriend/baby junea to remove the Steri-Strips from the tether of the stent and remove the stent, ensuring that both coils are intact. A slow steady pull of the stent is what is required. Any undue resistance, and the stent should be left in place and removed in the office. I will send a prescription for an antimicrobial for him to take prophylactically until the stent has been removed, preferably on Saturday of next week. Subsequent follow-up should be established with a [facility] metabolic profile assessment and blood work to include uric acid and PTH no sooner than 1 month after the stent has been removed, prior to follow-up with me electively. Findings and Operative Technique
[2024-12-22] MEDS: PHENAZOPYRIDINE 100MG TAB PO ONE (17:45)
[2024-12-22 17:59] VITALS: O2SAT 96
[2024-12-22] MEDS: KETOROLAC 30 MG/ML INJ IV ONE (21:25)
[2024-12-22] MEDS: PROMETHAZINE INJ 25 MG/ML AMP IV ONE (21:26)
[2024-12-23] MEDS: ONDANSETRON 4 MG/2 ML VIAL IV PRN (00:05)
--- NOTE | 2024-12-23 12:44 | P.DS ---
Admission Date: 12/18/24 Discharge Date: 12/23/24 Disposition: ROUTINE DISCHARGE Discharge Condition: GOOD Reason for Admission: Ureteric Stone and colic Brief History of Present Illness: 19 yrs old Male with past medical history of kidney stones came into ER with pain of the left flank and lower abdomen associated with nausea, but no vomiting. No dysuria. No fever or chills. No vomiting or diarrhea. No sick contacts. Patient had similar episodes in the past and diagnosed with ureteric stones and had passed stones in the past Patient was assessed in the ER and was found to have leukocytosis and left ureteric stone with hydronephrosis and was admitted for further management. Hospital Course: Left ureteral colic secondary to 5mm obstructing midureter stone with moderate left-sided hydroureteronephrosis h/o recurrent kidney stones CT abd/pelvis (12/18): Left moderate hydroureteronephrosis with a 5 mm midureter obstructing calculus. +Nonobstructing right renal calculi 2 to 3 mm. Had similar episode [address] abdomen last month noted mild-moderate hydro with 5mm stone along proximal left ureter. (11/28/24) Reports passing multiple stones since he was younger (10+ stones). Patient states that he passed a tiny stone 3-4 days prior to admission Patient placed on close Flomax Renal function remained normal. Patient had microscopic hematuria, no evidence of UTI Patient had leukocytosis and was briefly treated with antibiotics Patient seen and evaluated by urology Dr. John who performed cystoscopy and ureteroscopy with laser lithotripsy, and ureteral stent placed. Patient monitored overnight with no event. Patient deemed stable for discharge per Dr. Aguilar. He is prescribed Macrobid for empiric antibiotic treatment while the stent is in place. Patient is aware he is supposed to follow-up with Dr. John next week for stent removal. Patient also received instructions regarding the ureteral stent and any stone fragments from Dr. John. Vital Signs/Physical Exam: Temp Pulse Resp BP Pulse Ox 97.9 F 66 16 118/60 94 12/23/24 08:00 12/23/24 08:00 12/23/24 08:00 12/23/24 08:00 12/23/24 08:00 General: Alert, In no apparent distress, Oriented x3 HEENT: Mucous membr. moist/pink Neck: Supple, JVD not distended Respiratory: Clear to auscultation bilaterally, Normal air movement Cardiovascular: Regular rate/rhythm, Normal S1 S2 Gastrointestinal: Normal bowel sounds, Soft and benign, Non-distended, No tenderness Musculoskeletal: No swelling Integumentary: No rashes, No cyanosis Neurological: Normal strength at 5/5 x4 extr Laboratory Data at Discharge: WBC 7.00 thou/uL (4.3-10.9) 12/22/24 05:42 Hgb 13.9 g/dL (13.6-17.9) 12/22/24 05:42 Hct 41.0 % (39.6-49.0) 12/22/24 05:42 Plt Count 219 thou/uL (152-406) 12/22/24 05:42 Sodium 138 mEq/L (136-145) 12/22/24 05:42 Potassium 4.0 mEq/L (3.5-5.1) 12/22/24 05:42 BUN 14 mg/dL (7-18) 12/22/24 05:42 Creatinine 0.84 mg/dL (0.70-1.30) 12/22/24 05:42 Glucose 118 mg/dL (74-106) H 12/22/24 05:42 Magnesium 1.9 mg/dL (1.6-2.4) 12/22/24 05:42 Total Bilirubin 0.5 mg/dL (0.2-1.0) 12/19/24 04:34 AST 23 U/L (15-37) 12/19/24 04:34 ALT 60 U/L (16-61) 12/19/24 04:34 Alkaline Phosphatase 82 U/L (45-117) 12/19/24 04:34 Home Medications: Nitrofurantoin Monohyd/M-Cryst [Macrobid 100 mg Capsule] 100 mg PO DAILY #7 cap 12/22/24 Hydrocodone 5/APAP 325 [[place] 5/325*] 1 tab PO Q6H PRN #15 tab 12/23/24 New Medications: Nitrofurantoin Monohyd/M-Cryst [Macrobid 100 mg Capsule] 100 mg PO DAILY #7 cap Hydrocodone 5/APAP 325 [[place] 5/325*] 1 tab PO Q6H PRN #15 tab PRN Reason: Pain Scale 5-7 (Moderate) Physician Discharge Instructions: Physician discharge instructions: You have a left ureteral stent that is tethered via string to the head of your penis. Please avoid accidentally pulling on the string as it can cause the tip of the stent to be dislodged into a portion of your urethra that can cause you to leak urine uncontrollably. I would like for you to keep the stent for at least the next 3 to 5 days before removing it at home. We could remove it for you in my office, but since your insurance will not take effect before 01/05/2025, it would be best if you can remove the stent prior to that at home. The medical assistants at my office can instruct you, and your girlfriend, verbally on how to remove the stent over the phone. I would rather you do this on Saturday or Saturday of next week. There is a coil on each end of the stent; so when the stent is removed, it should have both coils intact or you should notify me via my office. Slow and steady pulling of the stent is what is required. You will feel the stent coming all the way from your inside back/flank area all the way out. Any significant resistance prohibiting you pulling the stent, you will need to come to my office for evaluation. I have also sent a prescription for an antibiotic, nitrofurantoin, which you should take once a day as prophylaxis, while the stent is in place. Once the stent has been removed, you no longer need to continue taking the nitrofurantoin. Please strain your urine to collect any stone dust fragments from the procedure today. Bring them with you when you follow-up with me in the urology clinic and we will send them for chemical analysis. The nurses can provide you with a strainer before you are discharged from the hospital, or you can use a regular kitchen strainer with a coffee filter placed within so that it fine filters the urine. You can expect visible blood in the urine. This is typically light pink initially before it becomes like All iced tea colored. You may see some coffee grounds before the urine clears up. [place], cranberry colored urine is reasonable. Bright red and thick, appearing like tomato juice, bloody urine would be significant bleeding that requires my attention. Please contact me should this occur. Should you develop any fever (temperature greater than 100.4 Fahrenheit), intractable nausea or vomiting, increasing pain not controlled by pain medications, or other unusual signs or symptoms, contact me via my office. If you are severely ill, you may need to seek emergency department evaluation. You may be discharged with a prescription for a narcotic pain medication. If you do not require the narcotic pain medication to manage your pain, you may instead simply take plain Tylenol, up to 1000 mg every 8 hours (4000 mg maximum in a day) and alternate this every 6 hours with Motrin/ibuprofen up to 800 mg maximum for your pain. For burning with urination, you may purchase [id number] Azo/Pyridium (phenazopyridine), again, which is available [id number] at your local pharmacy. This will turn your urine a bright orange but will act as an analgesic for the burning. My office will assist you to set up to complete a 24-hour urine collection ([employer] x 2 ) to assess what causes you to form kidney stones repetitively. Please complete this about 1 month after the stent has been removed on next Saturday. All the best! WBR Diet: Low sodium Activity: Ad khalida Followup: NONE,NONE [Primary Care Provider] - Eben John [ACTIVE - CAN ADMIT] - 1-2 Weeks Time spent managing pt's care (in minutes): 33
[2024-12-23 12:52] VITALS: BP 118/68; TEMP 98
== END 2024-12-23 14:46 | disposition home or self-care (01) | DRG 661 ==
LOC: ER 15:16 → ERHOLD 19:11 → 2ND 20:37
PROVIDERS: ADMIT Family Medicine; ATTEND Internal Medicine
PROC: 0TF78ZZ Fragmentation in Left Ureter, Via Natural or Artificial Opening Endoscopic (ICD-10-PCS; 2024-12-18)
PROC: BT1F1ZZ Fluoroscopy of Left Kidney, Ureter and Bladder using Low Osmolar Contrast (ICD-10-PCS; 2024-12-22)
PROC: 0T778DZ Dilation of Left Ureter with Intraluminal Device, Via Natural or Artificial Opening Endoscopic (ICD-10-PCS; principal; 2024-12-22 14:45)
DX: N13.2 Hydronephrosis with renal and ureteral calculous obstruction (principal); Z88.8 Allergy status to other drugs, medicaments and biological substances; Z79.899 Other long term (current) drug therapy
CPT/HCPCS: 36415; 51610; 74176; 74450; 76377; 80048; 80053; 81001; 83735; 85025; 96365; 96375; 99285; J0744; J1171; J2003; J2250; J2270; J2405; J2550; J2704; J3010; J3475; J7030